=== PATIENT | male | born 1925 | race Caucasian/White ===

== ENCOUNTER → 2016-12-07 | Outpatient (CLI) | payer BC ==
[2016-12-07 13:21] LABS: BASO % 0.7 %; BASO ABS # 0.05 K/uL (0-0.2); COMPLETE YES; HEMATOCRIT 45.1 % (42-52); IG% 0.3 %; LYMPH % 25.8 %; LYMPH ABS # 1.81 K/uL (1.2-3.4); MEAN CELL VOLUME 97.4 fL (80-100); MEAN CORPUSCULAR HGB CONC 33.9 g/dl (32-36); MEAN PLATELET VOLUME 9.3 fL (7.4-10.4); NEUT % 60.2 %; PLATELET COUNT 170 K/uL (130-400); RED BLOOD COUNT 4.63 M/uL (4.7-6.1); WHITE BLOOD COUNT 7.02 K/uL (4.8-10.8)
[2016-12-07 14:00] LABS: ALT/SGPT 30 U/L (12-78); BLOOD UREA NITROGEN 25 mg/dl (7-18); BUN/CREATININE RATIO 17.9 (10-20); CALCIUM 9.7 mg/dl (8.5-10.1); CARBON DIOXIDE 30 mmol/L (21-32); CHLORIDE 104 mmol/L (98-107); GLUCOSE 120 mg/dl (70-99); POTASSIUM 4.1 mmol/L (3.5-5.1); SODIUM 140 mmol/L (136-145)
[2016-12-07 14:10] LABS: ALB/GLOB RATIO 0.6 (0.9-2); ALKALINE PHOSPHATASE 90 U/L (45-117); AST/SGOT 25 U/L (15-37)
[2016-12-08 08:09] LABS: ESTIMATED AVERAGE GLUCOSE 137 mg/dl; HA1C FLAG Normal (Normal)
--- NOTE | 2016-12-12 07:52 | CODING QUERY MEDICAL NECESSITY ---
SUPPORTING DIAGNOSIS NEEDED Dr. Barker, A supporting diagnosis is required for the test/procedure performed on this patient in order for us to be reimbursed by the patient's insurance. Please provide a supporting diagnosis for the following test/procedure listed below next to the test name along with your signature. *If there is no additional diagnosis for this patient that would support the following test/procedure please document that below next to the test/procedure. Test(s)/Procedure(s) that require a supporting diagnosis: * 11962 GLYCATED HEMOGLOBIN DIAGNOSIS: DATE OF SERVICE: 12/07/16 Provider Signature: Date: Thank you Monster Garces [facility] Information Management Once completed, please kindly fax back to [phone] For questions please call [phone]
== END | disposition home or self-care (01) ==
LOC: C.LABBC 10:19
PROVIDERS: ATTEND Internal Medicine
DX: E55.9 Vitamin D deficiency, unspecified (principal); R73.01 Impaired fasting glucose

== ENCOUNTER → 2017-05-23 | Outpatient (CLI) | payer BC ==
[~2017-05-23] MED LIST: ASPI81TA28 PO; CHOL1000 PO; MULT-506 PO; OMEG10007 PO; POTASSIUM PO; SYN100 PO
--- NOTE | 2017-05-23 12:33 | DIAGNOSTIC IMAGING REPORT ---
CHEST 2 VIEWS ROUTINE CLINICAL HISTORY: BIBASILAR CRACKLES dyspnea COMPARISON STUDY: No previous studies for comparison. FINDINGS: Calcified pleural plaques in the mid to lower lung regions bilaterally. Interstitial and/or infiltrative changes the mid to lower lung regions bilaterally. Pleural thickening left base laterally. Pulmonary apices are clear. Diaphragms smooth. No significant cardiomegaly. IMPRESSION: 1. Bilateral calcified pleural plaques. 2. Interstitial changes in the mid to lower lung regions bilaterally. In the absence of prior studies for comparison cannot entirely exclude an inflammatory process. 3. There are no consolidative infiltrates. The above report was generated using voice recognition software. It may contain grammatical, syntax or spelling errors. Electronically signed by: Lawrence Gamble M.D. 05/23/2017 12:32 PM Dictated Date/Time: 05/23/2017 12:31 PM
== END | disposition home or self-care (01) ==
LOC: C.RAD1850 12:16
PROVIDERS: ATTEND Family Medicine
DX: J92.9 Pleural plaque without asbestos (principal); R09.89 Other specified symptoms and signs involving the circulatory and respiratory systems

== ENCOUNTER 2017-05-24 14:13 | Inpatient (IN) | payer BC, OTHER ==
[~2017-05-24] VITALS: Ht 165.1 cm; Wt 76.2 kg
[2017-05-24] MEDS ORDERED: POTASSIUM PO (15:07)
[2017-05-24] MEDS ORDERED: ASPI81TA28 PO (15:07)
[2017-05-24] MEDS ORDERED: CHOL1000 PO (15:23)
[2017-05-24] MEDS ORDERED: OMEG10007 PO (15:23)
[2017-05-24] MEDS ORDERED: SYN100 PO (15:23)
[2017-05-24] MEDS ORDERED: MULT-506 PO (15:23)
--- NOTE | 2017-05-24 15:33 | EMERGENCY ROOM VISIT NOTE ---
History First contact with patient: 14:24 Chief Complaint: ABNORMAL LABS Stated Complaint: KIDNEY NUMBERS HIGH/POTASSIUM HIGH REFERRED History of Present Illness The patient is a 89 year old male who was sent to the ED from his PCP due to a creatinine level of 7.2 and potassium of 5.8. He has had a 1 week history of shortness of breath, fatigue, feeling unsteady and off balance, a non- productive cough, chest tightness with his SOB and a poor appetite. He had a CXR yesterday which showed bilateral calcified pleural plaques and interstitial changes in the mid-lower lung regions bilaterally. He is a former smoker, and quit in 1959, but reports no prior history of lung problems, namely COPD. He is not on oxygen at home. He denies fever, chills, rhinorrhea, n/v, diarrhea, syncope, orthopnea, or a past history of kidney, heart or lung problems. He does report exposure to asbestos in the . Review of Systems See HPI for pertinent positives & negatives. A total of 10 systems reviewed and were otherwise negative. Past Medical/Surgical History Medical Problems: (1) Hearing loss (2) HLD (hyperlipidemia) (3) Liver failure Social History Smoking Status: Former Smoker Current/Historical Medications Scheduled Aspirin (Aspirin Ec), 81 MG PO DAILY Cholecalciferol (Vitamin D3), 1,000 INTER.UNIT PO DAILY Fish Oil ([place]-3), 1 CAP PO DAILY Levothyroxine Sodium (Synthroid), 100 MCG PO DAILY Multivitamin (Multivitamin), 1 TAB PO DAILY [Potassium], 1 TAB PO DAILY Physical Exam Vital Signs Date Time Temp Pulse Resp B/P (MAP) Pulse Ox O2 Delivery O2 Flow Rate FiO2 05/24/17 19:18 57 18 121/72 95 Room Air 05/24/17 17:34 57 16 106/64 94 05/24/17 16:24 57 16 130/68 93 Room Air 05/24/17 14:58 70 05/24/17 14:41 72 05/24/17 14:40 94 Room Air 05/24/17 14:26 36.5 76 20 118/69 94 Room Air Physical Exam HEENT: Head - normocephalic and atraumatic. Hard of hearing with hearing aids in both ears. Pupils are equal, round, and reactive to light. Nose - moist nasal mucosa without discharge. Mouth - moist buccal mucosa. Oropharynx is nonerythematous and there is no tonsillar exudate or edema noted. Heart: Regular rate and rhythm. There is a normal S1 and S2 with no murmurs, clicks, or gallops appreciated. Lungs: Bilateral bibasilar crackles. No wheezes, rales, or rhonchi. Abdomen: Soft, completely nontender, nondistended, with good bowel sounds. There are no palpable pulsatile masses or hepatosplenomegaly. There is no guarding, rigidity, or rebound noted. Extremities: No evidence of cyanosis, clubbing, or edema. There are easily palpable peripheral pulses. Neuro:The patient is awake and alert, oriented to day, time, and place. Medical Decision & Procedures Laboratory Results 05/24/17 16:28 Red Blood Count 4.10, Mean Corpuscular Volume 96.1, Mean Corpuscular Hemoglobin 34.1, Mean Corpuscular Hemoglobin Concent 35.5, Mean Platelet Volume 10.8, Neutrophils (%) (Auto) 85.1, Lymphocytes (%) (Auto) 10.4, Monocytes (%) (Auto) 4.0, Eosinophils (%) (Auto) 0.1, Basophils (%) (Auto) 0.0, Neutrophils # (Auto) 6.98, Lymphocytes # (Auto) 0.85, Monocytes # (Auto) 0.33, Eosinophils # (Auto) 0.01, Basophils # (Auto) 0.00 05/24/17 16:28 Test 05/24/17 16:28 05/24/17 17:53 05/24/17 19:32 White Blood Count 8.20 K/uL (4.8-10.8) Red Blood Count 4.10 M/uL (4.7-6.1) Hemoglobin 14.0 g/dL (14.0-18.0) Hematocrit 39.4 % (42-52) Mean Corpuscular Volume 96.1 fL (80-100) Mean Corpuscular Hemoglobin 34.1 pg (25-34) Mean Corpuscular Hemoglobin Concent 35.5 g/dl (32-36) Platelet Count 52 K/uL (130-400) Mean Platelet Volume 10.8 fL (7.4-10.4) Neutrophils (%) (Auto) 85.1 % Lymphocytes (%) (Auto) 10.4 % Monocytes (%) (Auto) 4.0 % Eosinophils (%) (Auto) 0.1 % Basophils (%) (Auto) 0.0 % Neutrophils # (Auto) 6.98 K/uL (1.4-6.5) Lymphocytes # (Auto) 0.85 K/uL (1.2-3.4) Monocytes # (Auto) 0.33 K/uL (0.11-0.59) Eosinophils # (Auto) 0.01 K/uL (0-0.5) Basophils # (Auto) 0.00 K/uL (0-0.2) RDW Standard Deviation 47.7 fL (36.4-46.3) RDW Coefficient of Variation 13.5 % (11.5-14.5) Immature Granulocyte % (Auto) 0.4 % Immature Granulocyte # (Auto) 0.03 K/uL (0.00-0.02) Nucleated RBC Absolute Count (auto) 0.05 K/uL (0-0) Nucleated Red Blood Cells % 0.6 % Dohle Bodies 1+ Platelet Estimate DECREASED Anion Gap 14.0 mmol/L (3-11) Estimated GFR () 7.0 Estimated GFR (Non- 6.0 BUN/Creatinine Ratio 16.9 (10-20) Calcium Level 9.2 mg/dl (8.5-10.1) Magnesium Level 2.7 mg/dl (1.8-2.4) Total Bilirubin 1.3 mg/dl (0.2-1) Aspartate Amino Transf (AST/SGOT) 1730 U/L (15-37) Alanine Aminotransferase (ALT/SGPT) 3157 U/L (12-78) Alkaline Phosphatase 92 U/L (45-117) Troponin I 196.000 ng/ml (0-0.045) Total Protein 8.0 gm/dl (6.4-8.2) Albumin 3.4 gm/dl (3.4-5.0) Globulin 4.6 gm/dl (2.5-4.0) Albumin/Globulin Ratio 0.7 (0.9-2) Medications Administered Medications (Trade) Dose Ordered Sig/Sahil Route Start Time Stop Time Status Last Admin Dose Admin Sodium Chloride 1,000 ml @ 200 mls/hr Q5H ONCE IV 05/24/17 16:00 05/24/17 20:59 05/24/17 16:23 200 MLS/HR ECG Indication: chest pain Rate (beats per minute): 57 Rhythm: sinus bradycardia Findings: 1st degree AV block, T-wave inversion (Inferior Leads) Comparison ECG Date: no prior available ED Course 14:42: The patient was evaluated in room B5. A complete history and physical exam was performed. 15:40: The case was discussed with the attending, Dr. Garcia. 15:51: 1L IV normal saline ordered at a rate of 200mls/hour 17:35: The patient was reassessed. He reports he is feeling better, and denies any new complaints. 17:45: The case was discussed with Dr. Brown, [facility] hospitalist who will evaluate the patient further for admission. Medical Decision The patient is a 89 year old male who was sent to the ED from his PCP due to a creatinine level of 7.2 and potassium of 5.8. Etiologies such as ARF, ACS, infection, pneumonia, dehydration, electrolyte disturbance, hypoglycemia, reactive airway disease, CHF as well as others were entertained. The patient is a 89 year old male who was sent to the ED from his PCP due to a creatinine level of 7.2 and potassium of 5.8. His repeat creatinine was 7.3, troponin was 196, platelets were low at 52 and liver enzymes were remarkably elevated. His lab work from 11/27 was normal. His EKG does not show any acute ST wave changes corresponding with his elevated troponin. He looks well considering his lab-work, and bibasilar crackles are likely related to chronic lung changes, possibly due to his prior asbestos exposure. He requires further workup in the inpatient setting to determine the etiology behind his acute renal failure, transaminitis, thrombocytopenia and elevated troponin. This was discussed with the patient and family, as well as Dr. Brown who will evaluate the patient further for admission. Impression Primary Impression: Acute renal failure Additional Impressions: Transaminitis Thrombocytopenia Elevated troponin Departure Information Dispostion Being Evaluated By Hospitalist Referrals Leonardo Barker M.D. (PCP) Patient Instructions My [facility] Resident Tracking Resident Involvement: Resident Care Provided Care Provided: Adult ED Problem Qualifiers Primary Impression: Acute renal failure Acute renal failure type: unspecified Qualified Codes: N17.9 - Acute kidney failure, unspecified
[2017-05-24] MEDS ORDERED: SODIUM CHLORIDE 0.9% 1000ML 1,000 ML IV ONE (16:00)
[2017-05-24 17:19] LABS: HEMATOCRIT 39.4 % (42-52); MEAN CELL VOLUME 96.1 fL (80-100); MEAN CORPUSCULAR HEMOGLOBIN 34.1 pg (25-34); MEAN CORPUSCULAR HGB CONC 35.5 g/dl (32-36); MEAN PLATELET VOLUME 10.8 fL (7.4-10.4); NUCLEATED RED BLOOD CELL ABS 0.05 K/uL (0-0); PLATELET COUNT 52 K/uL (130-400); RED CELL DISTRIBUTION WIDTH CV 13.5 % (11.5-14.5); RED CELL DISTRIBUTION WIDTH SD 47.7 fL (36.4-46.3)
[2017-05-24 17:21] LABS: EOS % 0.1 %; EOS ABS # 0.01 K/uL (0-0.5); IG# 0.03 K/uL (0.00-0.02); LYMPH % 10.4 %; LYMPH ABS # 0.85 K/uL (1.2-3.4); MONO ABS # 0.33 K/uL (0.11-0.59); NEUT % 85.1 %; NEUT ABS # 6.98 K/uL (1.4-6.5)
[2017-05-24 17:30] LABS: ALBUMIN 3.4 gm/dl (3.4-5.0); ALKALINE PHOSPHATASE 92 U/L (45-117); AST/SGOT 1730 U/L (15-37); BLOOD UREA NITROGEN 123 mg/dl (7-18); CALCIUM 9.2 mg/dl (8.5-10.1); CARBON DIOXIDE 22 mmol/L (21-32); GLUCOSE 146 mg/dl (70-99); POTASSIUM 5.6 mmol/L (3.5-5.1); SODIUM 134 mmol/L (136-145)
[2017-05-24 17:31] LABS: ALT/SGPT 3157 U/L (12-78)
--- NOTE | 2017-05-24 18:12 | DIAGNOSTIC IMAGING REPORT ---
CHEST ONE VIEW PORTABLE CLINICAL HISTORY: Shortness of breath and cough. COMPARISON STUDY: Chest radiograph May 23, 2017. FINDINGS: Multiple calcified pleural plaques are noted, more numerous within left hemithorax. There is no pneumothorax or pleural effusion. Mild cardiomegaly is noted. There is no lobar consolidation. Mild reticulonodular interstitial thickening is noted within the mid to lower lungs. IMPRESSION: 1. Reticulonodular interstitial thickening which may reflect interstitial lung disease or mild pulmonary edema. 2. 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 Electronically signed by: Douglas Galvin M.D. 05/24/2017 6:10 PM Dictated Date/Time: 05/24/2017 5:59 PM
--- NOTE | 2017-05-24 18:15 | DIAGNOSTIC IMAGING REPORT ---
ABD/PELVIS NO IV OR ORAL CONT CT DOSE: 573.01 mGy.cm HISTORY: Pain. Abnormal liver enzymes. FINDINGS: Prominent basilar parenchymal markings combine with calcified pleural plaques over the lower aspects of the right and to a lesser extent left hemithorax and to a lesser extent diaphragmatic surfaces. Liver is uniform. In the absence of intravenous contrast enhancement internal architecture cannot be ascertained. Configuration of the spleen is unremarkable. Pancreas is uniform. Kidneys are considered negative for calcification or hydronephrosis. There is a slightly hyperdense 3.5 cm cyst projecting in a left lateral exophytic a position lower pole left kidney. The bowel pattern is nonobstructive. The appendix is normal. Small bowel pattern is negative for distention. There is no significant abdominal or pelvic adenopathy. Bladder is midline. There are no contained calcifications. There are several small scattered colonic diverticuli with no evidence for acute diverticulitis. There is a very small right inguinal hernia containing a short segment loop of bowel. This appears to be a nonobstructive finding. TECHNIQUE: Multiaxial CT images of the abdomen and pelvis were performed without contrast. A dose lowering technique was utilized adhering to the principles of ALARA. COMPARISON STUDY: None. IMPRESSION: 1. Pleural and diaphragmatic calcified plaques at both lung bases combined with basilar parenchymal prominence. The possibility of prior asbestos exposure is considered. 2. 3.5 cm mildly hyperdense cyst left kidney. 3. Scattered colonic diverticuli with no evidence for diverticulitis. 4. Nonobstructive bowel pattern with a normal appendix. 5. Moderate degenerative change of the osseous structures throughout 6. Small right inguinal hernia containing a short segment loop of bowel which is considered nonobstructive. The above report was generated using voice recognition software. It may contain grammatical, syntax or spelling errors. Electronically signed by: Lawrence Gamble M.D. 05/24/2017 6:14 PM Dictated Date/Time: 05/24/2017 6:08 PM
[2017-05-24] MEDS ORDERED: ICU PROTOCOL FOR HYPERGLYCEMIA PRN ×2 (18:45→23:15)
--- NOTE | 2017-05-24 18:49 | EMERGENCY ROOM VISIT NOTE ---
History Report prepared by Flavio: Niranjan Eason Under the Supervision of: Dr. Randall Garcia D.O. First contact with patient: 14:23 Chief Complaint: ABNORMAL LABS Stated Complaint: KIDNEY NUMBERS HIGH/POTASSIUM HIGH DR REFERRED History of Present Illness The patient is an 89 year old male who presents to the Emergency Room with complaints of persistent weakness that started a week ago. The patient was sent here from his primary care physicians's clinic for evaluation due to the patient 's creatinine level of 7.2 and potassium level of 5.8. The patient says that he has had a 1-week history of shortness of breath on exertion, and has had a nonproductive cough. He adds that he has been feeling off-balance. The patient notes that he has had some chest tightness as well. He notes no history of pulmonary, cardiac, or kidney issues. He denies any fevers or chills. Source of History: patient, spouse/significant other Onset: A week ago Position: other (global - weakness) Symptom Intensity: creatinine of 7.2, potassium of 5.8 Timing: other (persistent) Associated Symptoms: + cough, + chest pain (tightness), + SOB (on exertion) , No fevers, No chills Note: Feeling off-balance. Review of Systems See HPI for pertinent positives & negatives. A total of 10 systems reviewed and were otherwise negative. Past Medical & Surgical Medical Problems: (1) Hearing loss (2) HLD (hyperlipidemia) Family History Family history is omitted secondary to patient's advanced age. Social History Smoking Status: Former Smoker Marital Status: Housing Status: lives with family Occupation Status: retired Current/Historical Medications Scheduled Aspirin (Aspirin Ec), 81 MG PO DAILY Cholecalciferol (Vitamin D3), 1,000 INTER.UNIT PO DAILY Fish Oil ([place]-3), 1 CAP PO DAILY Levothyroxine Sodium (Synthroid), 100 MCG PO DAILY Multivitamin (Multivitamin), 1 TAB PO DAILY [Potassium], 1 TAB PO DAILY Allergies Coded Allergies: Niacin (Verified Allergy, Mild, RASH, 05/24/17) Physical Exam Vital Signs Date Time Temp Pulse Resp B/P (MAP) Pulse Ox O2 Delivery O2 Flow Rate FiO2 05/24/17 17:34 57 16 106/64 94 05/24/17 16:24 57 16 130/68 93 Room Air 05/24/17 14:58 70 05/24/17 14:41 72 05/24/17 14:40 94 Room Air 05/24/17 14:26 36.5 76 20 118/69 94 Room Air Physical Exam CONSTITUTIONAL/VITAL SIGNS: Reviewed / noted above. GENERAL: Non-toxic in appearance. INTEGUMENTARY: Warm, dry, and [place]. HEAD: Normocephalic. EYES: without scleral icterus or trauma. ENT/OROPHARYNX: clear, dry mucous membranes LYMPHADENOPATHY/NECK: Is supple without lymphadenopathy or meningismus. RESPIRATORY: Lungs clear and equal. CARDIOVASCULAR: Regular rate and rhythm. GI/ABDOMEN: Soft and nontender. No organomegaly or pulsatile mass. No rebound or guarding. Normal bowel sounds. EXTREMITIES: Warm and well perfused. BACK: No CVA tenderness. NEUROLOGICAL: Intact without focal deficits. PSYCHIATRIC: normal affect. MUSCULOSKELETAL: Normally developed with good muscle tone. Medical Decision & Procedures ER Provider Diagnostic Interpretation: Radiology results as stated below per my review and radiologist interpretation: ABD/PELVIS NO IV OR ORAL CONT CT DOSE: 573.01 mGy.cm HISTORY: Pain. Abnormal liver enzymes. FINDINGS: Prominent basilar parenchymal markings combine with calcified pleural plaques over the lower aspects of the right and to a lesser extent left hemithorax and to a lesser extent diaphragmatic surfaces. Liver is uniform. In the absence of intravenous contrast enhancement internal architecture cannot be ascertained. Configuration of the spleen is unremarkable. Pancreas is uniform. Kidneys are considered negative for calcification or hydronephrosis. There is a slightly hyperdense 3.5 cm cyst projecting in a left lateral exophytic a position lower pole left kidney. The bowel pattern is nonobstructive. The appendix is normal. Small bowel pattern is negative for distention. There is no significant abdominal or pelvic adenopathy. Bladder is midline. There are no contained calcifications. There are several small scattered colonic diverticuli with no evidence for acute diverticulitis. There is a very small right inguinal hernia containing a short segment loop of bowel. This appears to be a nonobstructive finding. TECHNIQUE: Multiaxial CT images of the abdomen and pelvis were performed without contrast. A dose lowering technique was utilized adhering to the principles of ALARA. COMPARISON STUDY: None. IMPRESSION: 1. Pleural and diaphragmatic calcified plaques at both lung bases combined with basilar parenchymal prominence. The possibility of prior asbestos exposure is considered. 2. 3.5 cm mildly hyperdense cyst left kidney. 3. Scattered colonic diverticuli with no evidence for diverticulitis. 4. Nonobstructive bowel pattern with a normal appendix. 5. Moderate degenerative change of the osseous structures throughout 6. Small right inguinal hernia containing a short segment loop of bowel which is considered nonobstructive. The above report was generated using voice recognition software. It may contain grammatical, syntax or spelling errors. Electronically signed by: Lawrence Gamble M.D. 05/24/2017 6:14 PM Dictated Date/Time: 05/24/2017 6:08 PM CHEST ONE VIEW PORTABLE CLINICAL HISTORY: Shortness of breath and cough. COMPARISON STUDY: Chest radiograph May 23, 2017. FINDINGS: Multiple calcified pleural plaques are noted, more numerous within left hemithorax. There is no pneumothorax or pleural effusion. Mild cardiomegaly is noted. There is no lobar consolidation. Mild reticulonodular interstitial thickening is noted within the mid to lower lungs. IMPRESSION: 1. Reticulonodular interstitial thickening which may reflect interstitial lung disease or mild pulmonary edema. 2. 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 Electronically signed by: Douglas Galvin M.D. 05/24/2017 6:10 PM Dictated Date/Time: 05/24/2017 5:59 PM Laboratory Results 05/24/17 16:28 Red Blood Count 4.10, Mean Corpuscular Volume 96.1, Mean Corpuscular Hemoglobin 34.1, Mean Corpuscular Hemoglobin Concent 35.5, Mean Platelet Volume 10.8, Neutrophils (%) (Auto) 85.1, Lymphocytes (%) (Auto) 10.4, Monocytes (%) (Auto) 4.0, Eosinophils (%) (Auto) 0.1, Basophils (%) (Auto) 0.0, Neutrophils # (Auto) 6.98, Lymphocytes # (Auto) 0.85, Monocytes # (Auto) 0.33, Eosinophils # (Auto) 0.01, Basophils # (Auto) 0.00 05/24/17 16:28 Test 05/24/17 16:28 05/24/17 17:53 White Blood Count 8.20 K/uL (4.8-10.8) Red Blood Count 4.10 M/uL (4.7-6.1) Hemoglobin 14.0 g/dL (14.0-18.0) Hematocrit 39.4 % (42-52) Mean Corpuscular Volume 96.1 fL (80-100) Mean Corpuscular Hemoglobin 34.1 pg (25-34) Mean Corpuscular Hemoglobin Concent 35.5 g/dl (32-36) Platelet Count 52 K/uL (130-400) Mean Platelet Volume 10.8 fL (7.4-10.4) Neutrophils (%) (Auto) 85.1 % Lymphocytes (%) (Auto) 10.4 % Monocytes (%) (Auto) 4.0 % Eosinophils (%) (Auto) 0.1 % Basophils (%) (Auto) 0.0 % Neutrophils # (Auto) 6.98 K/uL (1.4-6.5) Lymphocytes # (Auto) 0.85 K/uL (1.2-3.4) Monocytes # (Auto) 0.33 K/uL (0.11-0.59) Eosinophils # (Auto) 0.01 K/uL (0-0.5) Basophils # (Auto) 0.00 K/uL (0-0.2) RDW Standard Deviation 47.7 fL (36.4-46.3) RDW Coefficient of Variation 13.5 % (11.5-14.5) Immature Granulocyte % (Auto) 0.4 % Immature Granulocyte # (Auto) 0.03 K/uL (0.00-0.02) Nucleated RBC Absolute Count (auto) 0.05 K/uL (0-0) Nucleated Red Blood Cells % 0.6 % Dohle Bodies 1+ Platelet Estimate DECREASED Anion Gap 14.0 mmol/L (3-11) Estimated GFR () 7.0 Estimated GFR (Non- 6.0 BUN/Creatinine Ratio 16.9 (10-20) Calcium Level 9.2 mg/dl (8.5-10.1) Magnesium Level 2.7 mg/dl (1.8-2.4) Total Bilirubin 1.3 mg/dl (0.2-1) Aspartate Amino Transf (AST/SGOT) 1730 U/L (15-37) Alanine Aminotransferase (ALT/SGPT) 3157 U/L (12-78) Alkaline Phosphatase 92 U/L (45-117) Troponin I 196.000 ng/ml (0-0.045) Total Protein 8.0 gm/dl (6.4-8.2) Albumin 3.4 gm/dl (3.4-5.0) Globulin 4.6 gm/dl (2.5-4.0) Albumin/Globulin Ratio 0.7 (0.9-2) Laboratory results as stated above per my review. Medications Administered Medications (Trade) Dose Ordered Sig/Sahil Route Start Time Stop Time Status Last Admin Dose Admin Sodium Chloride 1,000 ml @ 200 mls/hr Q5H ONCE IV 05/24/17 16:00 05/24/17 20:59 05/24/17 16:23 200 MLS/HR ECG Indication: toxicologic Rate (beats per minute): 57 Rhythm: sinus bradycardia Findings: 1st degree AV block, T-wave inversion (Inferior) ED Course 1444: Previous medical records were reviewed. The patient was evaluated in room B5 by the resident, Dr. Bolton and myself. A complete history and physical examination was performed. 1600: Ordered NSS 1000 ml @ 200 mls/hr IV. 1744: On reevaluation, the patient is resting. I discussed the results and findings with him. He verbalized agreement of the treatment plan. The patient will be evaluated for further management and care. 1746: Dr. Brown ([facility] taker off hemp fiber) was consulted regarding the patient. The patient will be evaluated for further treatment. Medical Decision Differential includes acute coronary syndrome, myocardial infarction, CVA, TIA, anemia, infection, pneumonia, UTI, pyelonephritis, poor nutrition, dehydration, electrolyte disturbance,hypoglycemia. This is an 89-year-old male who presents to the ED with a chief complaint of generalized weakness over the past couple of days. He has had decreased oral intake. Further details listed above. Patient was seen with the resident. The patient's exam revealed a 89-year-old male in no acute distress. His biggest membranes are dry. The rest of his exam was relatively unremarkable other than some crackles in the lungs. This might be related to a chronic lung issue. The patient was sent here from the outpatient office because of acute renal failure. His current BUN is 123 and his creatinine is 7.3. AST and ALTs are moderately elevated. CBC is unremarkable. Troponin was elevated. The patient was treated with IV fluids. He will be seen by the hospitalist for further inpatient evaluation and care. Medication Reconcilliation Current Medication List: was personally reviewed by me Blood Pressure Screening Patient's blood pressure: Normal blood pressure Consults Time Called: 1743 Consulting Physician: Dr. Brown - [facility] taker off hemp fiber Returned Call: 1745 Dr. Brown ([facility] taker off hemp fiber) was consulted regarding the patient. The patient will be evaluated for further treatment. Impression Primary Impression: Acute renal failure Additional Impressions: Transaminitis Thrombocytopenia Elevated troponin Scribe Attestation The scribe's documentation has been prepared under my direction and personally reviewed by me in its entirety. I confirm that the note above accurately reflects all work, treatment, procedures, and medical decision making performed by me. Departure Information Dispostion Being Evaluated By Hospitalist Referrals Leonardo Barker M.D. (PCP) Patient Instructions My [facility] Health Problem Qualifiers
--- NOTE | 2017-05-24 19:45 | History and Physical ---
History & Physical Date & Time of Service: May 24, 2017 at 19:14 Chief Complaint: Kidney Numbers High/Potassium High Dr Referred Primary Care Physician: Leonardo Barker M.D. History of Present Illness Source: patient, family 89 y/o M who until recently has been relatively healthy and independent. 10 days ago he developed a flu-like illness. He was generally weak but was not able to describe any specific symptoms. One day prior he visited his primary care clinic. He was sent home after labs and a CXR were obtained. The pt was then called back and told to attend the hospital due to highly abnormal labs. His lab results are in fact catastrophic. The pts troponin is 196 with only questionable inferior EKG changes. His creatinine is 7.2 and his ALT is > 3500. Labs obtained 11/27 were relatively normal aside from a creatinine of 1.4. The pt is remarkably asymptomatic and has no specific complaints. He denies chest or abdominal pain, denies SOB, cough, diarrhea, dysuria, oliguria or fevers. His CXR is suspicious for congestion without definitive pathology. A CT abdomen was not consistent with cirrhosis or renal outlet obstruction. Past Medical/Surgical History Medical Problems: (1) Hearing loss Status: Chronic (2) HLD (hyperlipidemia) Status: Chronic Social History Smoking Status: Former Smoker Marital Status: Occupational Status: retired Multi-Drug Resistant Organisms History of MDRO: No Allergies Coded Allergies: Niacin (Verified Allergy, Mild, RASH, 05/24/17) Home Medications Scheduled Aspirin (Aspirin Ec), 81 MG PO DAILY Cholecalciferol (Vitamin D3), 1,000 INTER.UNIT PO DAILY Fish Oil (Riesel-3), 1 CAP PO DAILY Levothyroxine Sodium (Synthroid), 100 MCG PO DAILY Multivitamin (Multivitamin), 1 TAB PO DAILY [Potassium], 1 TAB PO DAILY Review of Systems Constitutional: + weakness, No fever, No chills, No sweats Eyes: No worsening of vision ENT: No hearing loss, No unusual epistaxis, No nasal symptoms Respiratory: No cough, No sputum, No wheezing Cardiovascular: No chest pain, No orthopnea, No PND Abdomen: No pain, No nausea, No vomiting Musculoskeletal: No joint pain Genitourinary - Male: No hematuria, No dysuria Neurologic: + weakness, No memory loss Psychiatric: No depression symptoms Endocrine: + fatigue Hematologic / Lymphatic: No abnormal bleeding/bruising Integumentary: No rash Physical Exam Vital Signs Date Time Temp Pulse Resp B/P (MAP) Pulse Ox O2 Delivery O2 Flow Rate FiO2 05/24/17 17:34 57 16 106/64 94 05/24/17 16:24 57 16 130/68 93 Room Air 05/24/17 14:58 70 05/24/17 14:41 72 05/24/17 14:40 94 Room Air 05/24/17 14:26 36.5 76 20 118/69 94 Room Air General Appearance: WD/WN, no apparent distress Head: normocephalic Eyes: normal inspection ENT: normal ENT inspection, pharynx normal Neck: supple, thyroid normal Respiratory/Chest: chest non-tender, lungs clear Cardiovascular: regular rate, rhythm, no edema, no gallop Abdomen/GI: normal bowel sounds, non tender, soft Back: normal inspection, no CVA tenderness Extremities/Musculoskelatal: normal inspection, no calf tenderness, normal capillary refill Neurologic/Psych: 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, no motor/sensory deficits, alert, + pertinent finding (Lethargic - follows commands and responds appropriately) Skin: normal color, warm/dry, no rash Diagnostics Laboratory Results Results Past 24 Hours Test 05/24/17 16:28 05/24/17 17:53 Range/Units White Blood Count 8.20 4.8-10.8 K/uL Red Blood Count 4.10 4.7-6.1 M/uL Hemoglobin 14.0 14.0-18.0 g/dL Hematocrit 39.4 42-52 % Mean Corpuscular Volume 96.1 80-100 fL Mean Corpuscular Hemoglobin 34.1 25-34 pg Mean Corpuscular Hemoglobin Concent 35.5 32-36 g/dl Platelet Count 52 130-400 K/uL Mean Platelet Volume 10.8 7.4-10.4 fL Neutrophils (%) (Auto) 85.1 % Lymphocytes (%) (Auto) 10.4 % Monocytes (%) (Auto) 4.0 % Eosinophils (%) (Auto) 0.1 % Basophils (%) (Auto) 0.0 % Neutrophils # (Auto) 6.98 1.4-6.5 K/uL Lymphocytes # (Auto) 0.85 1.2-3.4 K/uL Monocytes # (Auto) 0.33 0.11-0.59 K/uL Eosinophils # (Auto) 0.01 0-0.5 K/uL Basophils # (Auto) 0.00 0-0.2 K/uL RDW Standard Deviation 47.7 36.4-46.3 fL RDW Coefficient of Variation 13.5 11.5-14.5 % Immature Granulocyte % (Auto) 0.4 % Immature Granulocyte # (Auto) 0.03 0.00-0.02 K/uL Nucleated RBC Absolute Count (auto) 0.05 0-0 K/uL Nucleated Red Blood Cells % 0.6 % Dohle Bodies 1+ Platelet Estimate DECREASED Sodium Level 134 136-145 mmol/L Potassium Level 5.6 3.5-5.1 mmol/L Chloride Level 98 98-107 mmol/L Carbon Dioxide Level 22 21-32 mmol/L Anion Gap 14.0 3-11 mmol/L Blood Urea Nitrogen 123 7-18 mg/dl Creatinine 7.30 0.60-1.40 mg/dl Estimated GFR () 7.0 Estimated GFR (Non- 6.0 BUN/Creatinine Ratio 16.9 10-20 Random Glucose 146 70-99 mg/dl Calcium Level 9.2 8.5-10.1 mg/dl Magnesium Level 2.7 1.8-2.4 mg/dl Total Bilirubin 1.3 0.2-1 mg/dl Aspartate Amino Transf (AST/SGOT) 1730 15-37 U/L Alanine Aminotransferase (ALT/SGPT) 3157 12-78 U/L Alkaline Phosphatase 92 45-117 U/L Troponin I 196.000 0-0.045 ng/ml Total Protein 8.0 6.4-8.2 gm/dl Albumin 3.4 3.4-5.0 gm/dl Globulin 4.6 2.5-4.0 gm/dl Albumin/Globulin Ratio 0.7 0.9-[address] abdomen: 1. Pleural and diaphragmatic calcified plaques at both lung bases combined with basilar parenchymal prominence. The possibility of prior asbestos exposure is considered. 2. 3.5 cm mildly hyperdense cyst left kidney. 3. Scattered colonic diverticuli with no evidence for diverticulitis. 4. Nonobstructive bowel pattern with a normal appendix. 5. Moderate degenerative change of the osseous structures throughout 6. Small right inguinal hernia containing a short segment loop of bowel which is considered nonobstructive. EKG Sinus - low voltage - questionable - minimal inferior elevations - can not r/o AMI Impression Assessment and Plan 89 y/o M who until recently has been relatively healthy and independent. 10 days ago he developed a flu-like illness. He was generally weak but was not able to describe any specific symptoms. One day prior he visited his primary care clinic. He was sent home after labs and a CXR were obtained. The pt was then called back and told to attend the hospital due to highly abnormal labs. His lab results are in fact catastrophic. The pts troponin is 196 with only questionable inferior EKG changes. His creatinine is 7.2 and his ALT is > 3500. Labs obtained 11/27 were relatively normal aside from a creatinine of 1.4. The pt is remarkably asymptomatic and has no specific complaints. He denies chest or abdominal pain, denies SOB, cough, diarrhea, dysuria, oliguria or fevers. His CXR is suspicious for congestion without definitive pathology. A CT abdomen was not consistent with cirrhosis or renal outlet obstruction. It is not clear what the initial insult was, although logically it may have been cardiac leading to organ hypoperfusion and subsequent hepatic and renal failure. The pt is admitted to the ICU with multiorgan failure. Aside from fluid resuscitation presently we will not pursue aggressive treatment. He is not a good candidate for PCI or dialysis and it is not likely that we can reverse his liver damage. We will obtain an echo and order a hepatic ultrasound to r/o thrombosis. Troponin will be trended. He will be evaluated by Nephrology, cardiology, GI and critical care provided the family does not decide to pursue comfort measures. His K is slightly high and will be treated with IVF and a dose of Kayexalate. I have discussed the above in detail with the family, electorate officer, ER attending Total time for this admission including review of labs, meds, imaging - discussion with pt, family, attendings - including critical care time - 45 min The pt is full code awaiting family decision on status Owing to his low platelet count, we have not anticoagulated him Level of Care Critical Care Resuscitation Status FULL RESUSCITATION VTE Prophylaxis VTE Risk Assessment Done? Y/N: Yes Risk Level: High Given or contraindicated: SCD's
[2017-05-24] MEDS: SODIUM CHLORIDE 0.9% 1000ML 1,000 ML IV SCH (22:01)
[2017-05-24 23:18] VITALS: BP 103/65; PULSE 58; TEMP 36.4; O2SAT 95; Ht 165.1 cm; Wt 76.2 kg
--- NOTE | 2017-05-24 23:19 | Critical Care Consultation ---
Critical Care Consultation Date of Consultation: May 24, 2017. Attending Physician: Reji Brown M.D. Reason for Consultation: Critically ill 89-year-old male with NSTEMI, acute liver failure, acute renal failure, thrombocytopenia, and generalized weakness requiring close hemodynamic/ cardiovascular monitoring. History of Present Illness Patient is a generally well-appearing 89-year-old male admitted to the ICU with significant laboratory abnormalities in the setting of likely NSTEMI. Per the patient and records, the patient had a flulike illness several days ago. He was seen at his primary care provider's office yesterday with outpatient labs that were performed. Patient reports that since Sunday morning he has felt very weak. He barely get out of bed on Sunday. When he did, he had to hold onto things to walk. This is certainly new for him. This is a gentleman that bowls 2 days per week and mows his own lawn. His symptoms persisted throughout the day on Sunday. The patient's primary care office contact the patient today with his highly abnormal labs. He was subsequently brought to the emergency department for further evaluation. On evaluation, the patient was found to be thrombocytopenic. He is not overtly anemic. There is no leukocytosis. He was found to be in acute renal failure with a creatinine of 7.3 and BUN of 123. Potassium is slightly high at 5.6. Additionally, the patient appears to be in acute liver failure with an AST and ALT of 1730 and 3157, respectively. Patient was found to have inferior T-wave changes in the setting of an elevated troponin of 196. Blood pressures and pulse rate remained relatively stable despite likely inferior infarct. ICU staff was consult with secondary to gravity of patient's laboratory assessment and possible need for intervention and close monitoring in the acute phase. Per hospitalist, he did speak with interventional cardiology who did not feel as though the patient would be ideal candidate for PTCA intervention. Medical management will certainly be difficult in the setting of thrombocytopenia. Patient was hydrated with 150 mL of normal saline per hour. Upon arrival of the ICU, the patient reports that he had been feeling fairly well until Sunday. Since then, he has had increasing weakness and generalized malaise. At no point does the patient describe any episodes of chest pain, shortness of breath, dizziness, or lightheadedness. He reports a history of coronary artery disease. He does follow with his primary care provider yearly as scheduled. He currently denies any headaches, dizziness, lightheadedness, blurry vision, chest pain, palpitations, shortness of breath, nausea, vomiting, abdominal pain, hematochezia, melena, hematuria, or dysuria. The patient lives at home with his . He is hard of hearing and wears hearing aids. He denies any alcohol use. He is a former smoker. Past Medical/Surgical History Medical Problems: (1) Hearing loss (2) HLD (hyperlipidemia) (3) Liver failure Family History Noncontributory Social History Smoking Status: Former Smoker Smokeless Tobacco Use: No Alcohol Use: none Drug Use: none Marital Status: Housing Status: lives with family Occupation Status: retired Allergies Coded Allergies: Niacin (Verified Allergy, Mild, RASH, 05/24/17) Home Medications Scheduled Aspirin (Aspirin Ec), 81 MG PO DAILY Cholecalciferol (Vitamin D3), 1,000 INTER.UNIT PO DAILY Fish Oil ([place]-3), 1 CAP PO DAILY Levothyroxine Sodium (Synthroid), 100 MCG PO DAILY Multivitamin (Multivitamin), 1 TAB PO DAILY [Potassium], 1 TAB PO DAILY Current Inpatient Medications Current Inpatient Medications Medications (Trade) Dose Ordered Sig/Sahil Route Start Time Stop Time Status Last Admin Dose Admin Levothyroxine Sodium (Synthroid Tab) 100 mcg DAILYBB PO 05/25/17 06:00 06/24/17 06:59 Miscellaneous Information (Icu Protocol For Hyperglycemia) 1 ea PRN PRN N/A 05/24/17 18:45 05/26/17 18:44 Sodium Chloride 1,000 ml @ 100 mls/hr Q10H IV 05/24/17 19:15 05/25/17 13:32 05/24/17 22:01 150 MLS/HR Review of Systems A complete 10-point Review of Systems was discussed with the patient, with pertinent positives and negatives listed in the History of Present Illness. All remaining Review of Systems questions can be considered negative unless otherwise specified. Physical Exam Date Time Temp Pulse Resp B/P (MAP) Pulse Ox O2 Delivery O2 Flow Rate FiO2 05/24/17 21:12 36.5 57 18 121/72 95 05/24/17 19:18 57 18 121/72 95 Room Air 05/24/17 17:34 57 16 106/64 94 05/24/17 16:24 57 16 130/68 93 Room Air 05/24/17 14:58 70 05/24/17 14:41 72 05/24/17 14:40 94 Room Air 05/24/17 14:26 36.5 76 20 118/69 94 Room Air VITAL SIGNS - Vital signs and nursing notes were reviewed. GENERAL - 89-year-old male appearing his stated age who is in no acute distress. Difficulty w/ hearing. HEAD - NC/AT. EYES - PERRL with EOMI bilaterally. Sclera anicteric. EARS - No deformities of external structures noted on gross examination bilaterally. Hearing aids in place. NOSE - Midline and without cyanosis. MOUTH/OROPHARYNX - Without perioral cyanosis. Buccal mucosa pink and dry. Tongue midline with equal elevation of palate bilaterally. NECK - Neck with FROM. Supple to palpation. LUNGS - Chest wall symmetric without accessory muscle use, intercostals retractions, or central cyanosis. Normal vesicular breath sounds CTA B/L. No wheezes, rales, or rhonchi appreciated. CARDIAC - RRR with S1/S2. No murmur, rubs, or gallops appreciated. No reproducible tenderness to palpation appreciated over the anterior chest wall. ABDOMEN - Abdominal contour flat and without pulsations or visible masses. BS normoactive all four quadrants. No tenderness, palpable masses, hepatosplenomegaly, or ascites noted. EXTREMITIES - No peripheral cyanosis. No pretibial edema present. +3/5 radial and dorsalis pedis pulses palpated throughout. +4/5 strength noted in UE/LE bilaterally. NEUROLOGIC - Cranial nerves II through XII grossly intact. Sensory intact to light touch throughout. PSYCH - A&Ox3 and cooperates fully with examiner. Pt is very pleasant and interacts well with examiner. Laboratory Results Last 24 Hours Test 05/24/17 16:28 05/24/17 21:30 05/24/17 22:04 05/24/17 23:07 White Blood Count 8.20 K/uL Red Blood Count 4.10 M/uL Hemoglobin 14.0 g/dL Hematocrit 39.4 % Mean Corpuscular Volume 96.1 fL Mean Corpuscular Hemoglobin 34.1 pg Mean Corpuscular Hemoglobin Concent 35.5 g/dl Platelet Count 52 K/uL Mean Platelet Volume 10.8 fL Neutrophils (%) (Auto) 85.1 % Lymphocytes (%) (Auto) 10.4 % Monocytes (%) (Auto) 4.0 % Eosinophils (%) (Auto) 0.1 % Basophils (%) (Auto) 0.0 % Neutrophils # (Auto) 6.98 K/uL Lymphocytes # (Auto) 0.85 K/uL Monocytes # (Auto) 0.33 K/uL Eosinophils # (Auto) 0.01 K/uL Basophils # (Auto) 0.00 K/uL RDW Standard Deviation 47.7 fL RDW Coefficient of Variation 13.5 % Immature Granulocyte % (Auto) 0.4 % Immature Granulocyte # (Auto) 0.03 K/uL Nucleated RBC Absolute Count (auto) 0.05 K/uL Nucleated Red Blood Cells % 0.6 % Dohle Bodies 1+ Platelet Estimate DECREASED Sodium Level 134 mmol/L Potassium Level 5.6 mmol/L Chloride Level 98 mmol/L Carbon Dioxide Level 22 mmol/L Anion Gap 14.0 mmol/L Blood Urea Nitrogen 123 mg/dl Creatinine 7.30 mg/dl Estimated GFR () 7.0 Estimated GFR (Non- 6.0 BUN/Creatinine Ratio 16.9 Random Glucose 146 mg/dl Calcium Level 9.2 mg/dl Magnesium Level 2.7 mg/dl Total Bilirubin 1.3 mg/dl Aspartate Amino Transf (AST/SGOT) 1730 U/L Alanine Aminotransferase (ALT/SGPT) 3157 U/L Alkaline Phosphatase 92 U/L Troponin I 196.000 ng/ml Total Protein 8.0 gm/dl Albumin 3.4 gm/dl Globulin 4.6 gm/dl Albumin/Globulin Ratio 0.7 Urine Color YELLOW Urine Appearance CLOUDY Urine pH 5.0 Urine Specific [place] 1.018 Urine Protein 1+ Urine Glucose (UA) NEG Urine Ketones NEG Urine Occult Blood 2+ Urine Nitrite NEG Urine Bilirubin NEG Urine Urobilinogen NEG Urine Leukocyte Esterase TRACE Urine WBC (Auto) 5-10 /hpf Urine RBC (Auto) 0-4 /hpf Urine Hyaline Casts (Auto) 5-10 /lpf Urine Epithelial Cells (Auto) >30 /lpf Urine Bacteria (Auto) NEG Urine Crystals Urine Pathogenic Casts See comments /lpf Urine Yeast (Auto) Bedside Glucose 115 mg/dl Test 05/24/17 23:12 Diagnostic Results Radiological imaging and reports were reviewed by myself. Radiologist's Interpretation as follows: CHEST ONE VIEW PORTABLE CLINICAL HISTORY: Shortness of breath and cough. COMPARISON STUDY: Chest radiograph May 23, 2017. FINDINGS: Multiple calcified pleural plaques are noted, more numerous within left hemithorax. There is no pneumothorax or pleural effusion. Mild cardiomegaly is noted. There is no lobar consolidation. Mild reticulonodular interstitial thickening is noted within the mid to lower lungs. IMPRESSION: 1. Reticulonodular interstitial thickening which may reflect interstitial lung disease or mild pulmonary edema. 2. 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 ABD/PELVIS NO IV OR ORAL CONT CT DOSE: 573.01 mGy.cm HISTORY: Pain. Abnormal liver enzymes. FINDINGS: Prominent basilar parenchymal markings combine with calcified pleural plaques over the lower aspects of the right and to a lesser extent left hemithorax and to a lesser extent diaphragmatic surfaces. Liver is uniform. In the absence of intravenous contrast enhancement internal architecture cannot be ascertained. Configuration of the spleen is unremarkable. Pancreas is uniform. Kidneys are considered negative for calcification or hydronephrosis. There is a slightly hyperdense 3.5 cm cyst projecting in a left lateral exophytic a position lower pole left kidney. The bowel pattern is nonobstructive. The appendix is normal. Small bowel pattern is negative for distention. There is no significant abdominal or pelvic adenopathy. Bladder is midline. There are no contained calcifications. There are several small scattered colonic diverticuli with no evidence for acute diverticulitis. There is a very small right inguinal hernia containing a short segment loop of bowel. This appears to be a nonobstructive finding. TECHNIQUE: Multiaxial CT images of the abdomen and pelvis were performed without contrast. A dose lowering technique was utilized adhering to the principles of ALARA. COMPARISON STUDY: None. IMPRESSION: 1. Pleural and diaphragmatic calcified plaques at both lung bases combined with basilar parenchymal prominence. The possibility of prior asbestos exposure is considered. 2. 3.5 cm mildly hyperdense cyst left kidney. 3. Scattered colonic diverticuli with no evidence for diverticulitis. 4. Nonobstructive bowel pattern with a normal appendix. 5. Moderate degenerative change of the osseous structures throughout 6. Small right inguinal hernia containing a short segment loop of bowel which is considered nonobstructive. Assessment & Plan (1) NSTEMI (non-ST elevated myocardial infarction) (2) Elevated troponin (3) Transaminitis (4) Thrombocytopenia (5) Acute renal failure (6) Liver failure (7) Hearing loss Reason Critically Ill: Critically ill 89-year-old male with NSTEMI, acute liver failure, acute renal failure, thrombocytopenia, and generalized weakness requiring close hemodynamic/cardiovascular monitoring. Neuro - * CAM ICU: NEGATIVE * Monitor Neuro status in the setting of ARF/Liver Failure/Thrombocytopenia Cardiac - * NSTEMI: * Troponin of 196.00 - will trend. Suspect that the patient had infarcted sometime over the past week or so given this number. * Slight ST elevation w/ T wave inversions noted inferiorly - no comparisons. * Per Cardiology, patient is a poor candidate for PTCA intervention at this point. * Avoid Heparin gtt 2/2 platelet count of 52k - will defer to cardiology for need for antiplatelet therapy. * AM Echo. * Monitor on Telemetry. * EKGs w/ CP * IVF for preload. * Pressors for Cardiogenic shock. * Appreciate Cardiology's Guidance. Respiratory - * Prior h/o smoking: * NC PRN. * Serial CXRs GI - * Acute Hepatitis/Transaminitis: * AST/ALT - 1730/3157 w/ T-bili 1.3 * Will check PT/INR * Will check Ammonia levels - may add to chronicity of disease in the setting of lack of neurological s/s. * ??Related to remote viral illness versus NSTEMI. * Appreciate GI Consultation. * Prophylaxis - Zantac. RENAL/LYTES - * Acute Renal Failure: * BUN/Cr 123/7.30 * Surprisingly, no significant electrolyte derangements at this point. * Will trend. * ??Poor candidate for dialysis in the setting of multiple comorbidities - defer to Nephro. * Appreciate Nephrology Consultation. * IVF NSS@100mL/hr - * Declines Barriga at this time. * Not anuric at this point. ENDO - * No h/o DM. * BSGs per protocol w/ ISS/gtt PRN. * Provided Levothyroxine in the ED: * Will check TSH/Free T4 in AM HEME - * H&H Stable - will trend. * Thrombocytopenia: * Platelets 52k * Will trend. * Avoid antiplatelet Rx at this point. ID - * No c/o of infection at this point. * Influenza NEGATIVE. * Will add L[place] for completeness of evaluation. * Monitor fever curve. LINES/IV ACCESS - * PIVs intact. DVT PROPHYLAXIS - * Will defer chemoprophylaxis at this point 2/2 thrombocytopenia. * Reassess as evaluation continues. * SCDs. CODE STATUS: * I personally had a lengthy conversation with the patient and his son, Deshawn. At this point, the patient would wish to undergo all life-saving measures including CPR, cardioversion, intubation and mechanical ventilation. At this point, his CODE STATUS wishes are to be a LEVEL I FULL CODE. Per conversation with hospitalist, apparently, family is discussing the potential for comfort measures only given the gravity of his illness and multiple comorbidities. We will continue with further evaluation at this point until any further decisions are made and further evaluation provides more insight as to patient's condition and possible outlook. I have personally spent 35 minutes of critical care time in the direct management of this patient. This is a life/limb threatening event. This includes time spent evaluating patient, direct bedside care, chart review, placing orders, interpretation of diagnostic studies, discussion with consultants, patient, and family members, as well as other required patient management activities. This time is exclusive of all separately billable procedures, and teaching time and separate from and in addition to any other critical care service time. Thank you for this consultation allow us to be part of this patient's care. Please refer to my attending physician's documentation for any further recommendations. Physician Supervision Note: I discussed the case with Reynaldo Xiong PA-C and agree with the findings and plan as documented in the note. I performed an independent examination. Any exceptions or clarifications are listed here: 89 year old male presents with large NV, complicated by acute kidney injury, perhaps ischemic hepatitis. Not a candidate for cardiac catheterization. Considered for hemodialysis if develops significant acidosis, fluid overload or has persistent hyperkalemia. He is able to void on his own. Consider Barriga catheter IV fluids Prognosis is guarded Documented By: Kumar Hercules MD Problem Qualifiers (1) Acute renal failure: Acute renal failure type: unspecified Qualified Codes: N17.9 - Acute kidney failure, unspecified (2) Liver failure: Liver failure chronicity: acute Hepatic coma status: without hepatic coma Qualified Codes: K72.00 - Acute and subacute hepatic failure without coma
[2017-05-24 23:59] VITALS: O2SAT 93
[2017-05-25] VITALS (19 sets, daily range): BP systolic 91–127; BP diastolic 52–74; PULSE 53–72; TEMP 36.5–36.8; O2SAT 91–95
[2017-05-25 00:29] LABS: CALCIUM 8.8 mg/dl (8.5-10.1); CREATININE 7.31 mg/dl (0.60-1.40); PHOSPHORUS 4.9 mg/dl (2.5-4.9); POTASSIUM 5.2 mmol/L (3.5-5.1)
[2017-05-25 00:52] LABS: HEP C IGG 13 YRS+OLDER_RFLX NEG (NEG)
[2017-05-25 05:43] LABS: HEMATOCRIT 36.6 % (42-52); HEMOGLOBIN 13.1 g/dL (14.0-18.0); MEAN CELL VOLUME 95.6 fL (80-100); MEAN CORPUSCULAR HEMOGLOBIN 34.2 pg (25-34); MEAN CORPUSCULAR HGB CONC 35.8 g/dl (32-36); NUCLEATED RED BLOOD CELL ABS 0.05 K/uL (0-0); RED CELL DISTRIBUTION WIDTH CV 13.3 % (11.5-14.5); RED CELL DISTRIBUTION WIDTH SD 46.4 fL (36.4-46.3); WHITE BLOOD COUNT 7.06 K/uL (4.8-10.8)
[2017-05-25] MEDS: LEVOTHYROXINE 100 MCG TAB PO SCH (05:58)
[2017-05-25 06:00] LABS: MEAN PLATELET VOLUME 10.8 fL (7.4-10.4); PLATELET COUNT 47 K/uL (130-400)
[2017-05-25 06:04] LABS: INR 1.3 (0.9-1.1); PTT PATIENT 29.2 SECONDS (21.0-31.0)
[2017-05-25 06:11] LABS: BASO % 0.1 %; BASO ABS # 0.01 K/uL (0-0.2); EOS % 0.1 %; EOS ABS # 0.01 K/uL (0-0.5); IG# 0.02 K/uL (0.00-0.02); LYMPH % 11.5 %; LYMPH ABS # 0.81 K/uL (1.2-3.4); MONO % 6.8 %; MONO ABS # 0.48 K/uL (0.11-0.59); NEUT % 81.2 %; NEUT ABS # 5.73 K/uL (1.4-6.5)
[2017-05-25 06:43] LABS: ALBUMIN 2.9 gm/dl (3.4-5.0); CALCIUM 8.6 mg/dl (8.5-10.1); CREATININE 7.01 mg/dl (0.60-1.40); PHOSPHORUS 4.7 mg/dl (2.5-4.9); POTASSIUM 5.9 mmol/L (3.5-5.1)
--- NOTE | 2017-05-25 07:34 | DIAGNOSTIC IMAGING REPORT ---
ULTRASOUND RIGHT UPPER QUADRANT ABDOMEN CLINICAL HISTORY: Acute hepatitis. COMPARISON STUDY: Abdominal CT dated 05/24/2017. TECHNIQUE: Real-time, grayscale, and color flow sonography of the right upper quadrant of the abdomen was performed. Images are reviewed in the transverse and longitudinal planes. FINDINGS: Liver: The liver is normal in size and demonstrates heterogeneously increased echotexture consistent with hepatic steatosis. There is no intrahepatic biliary ductal dilatation. The main portal vein is patent. Gallbladder: Biliary sludge is noted. The gallbladder is otherwise normal in appearance. No shadowing gallstones are identified. There is no gallbladder wall thickening or pericholecystic fluid. A sonographic Roldan's sign is reportedly absent. The common bile duct measures up to 0.3 cm in diameter. Pancreas: Visualized portions of the pancreatic head are normal in appearance. The majority of the pancreas was not well visualized. Right kidney: Survey images of the right kidney demonstrate normal size and echotexture. There is no hydronephrosis. Ascites: Trace perihepatic fluid is identified. IMPRESSION: 1. Findings are consistent with hepatic steatosis. 2. Trace perihepatic fluid is noted. 3. There is biliary sludge. No shadowing gallstones are identified and there is no sonographic evidence of acute cholecystitis. Electronically signed by: Anderson Reyes M.D. 05/25/2017 7:33 AM Dictated Date/Time: 05/25/2017 7:31 AM
--- NOTE | 2017-05-25 07:49 | DIAGNOSTIC IMAGING REPORT ---
CHEST ONE VIEW PORTABLE CLINICAL HISTORY: pleural effusions COMPARISON STUDY: 05/24/2017 FINDINGS: The cardiac and mediastinal contours remain stable. 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 There are bilateral reticulonodular opacities similar to the preceding study. There is no lobar consolidation. No significant pleural effusions are visualized on this AP projection IMPRESSION: 1. Stable calcified pleural plaques 2. Stable bilateral reticulonodular opacities Electronically signed by: Elgin Felipe M.D. 05/25/2017 7:48 AM Dictated Date/Time: 05/25/2017 7:47 AM
[2017-05-25] MEDS: RANITIDINE HCL 150 MG TAB PO SCH ×2 (07:55→20:44)
[2017-05-25] MEDS ORDERED: INSULIN HUMAN REGULAR PER UNIT 10 UNITS in SYRINGE 9.9 ML IV ONE ×2 (08:45→08:46)
[2017-05-25] MEDS ORDERED: DEXTROSE 50% 50 ML SYR IV ONE (08:45)
[2017-05-25] MEDS ORDERED: SODIUM POLYST. SULF SUSP 15G/60ML PO ONE (08:45)
[2017-05-25] MEDS: SODIUM CHLORIDE 0.9% 1000ML 1,000 ML IV SCH ×2 (08:45→16:50)
--- NOTE | 2017-05-25 09:41 | Nephrology Consultation ---
Nephrology Consultation Date & Providers Date of Consultation: May 25, 2017. Primary Care Provider: Leonardo Barker M.D. Referring Provider: Reason for Consultation Evaluation management for acute kidney injury and hyperkalemia History of Present Illness Mr. Rae is a 89-year-old gentlemen with past medical history mainly significant for hypertension admitted to the hospital as a direct admit from his primary care physician's office as was found to have acute hepatic failure and acute kidney injury. Nephrologic consult was requested for management of acute kidney injury and hyperkalemia. Electronic medical records including labs and imaging were reviewed in detail during patient's visit. Patient's son Heri was present during the visit and provided most of the history. 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 He started feeling unwell almost a week ago became weak and tired and atone point it was getting difficult for him to get out of bed. Yesterday he went to see his primary care physician. Lab done at primary care physician's office showed creatinine 7.4, BUN above 120, hyperkalemia, elevated troponin above 160 and acute hepatic failure. He was immediately refer to emergency room for further evaluation. CT scan of abdomen pelvis on admission was negative for any postrenal obstruction. Urinalysis showed 1+ proteinuria and hematuria. No history of recent NSAID use or antibiotic use. No other nephrotoxic medication exposure. No history of diabetes or autoimmune disorder. No history of coronary artery disease or CHF. Chest x-ray on admission was suggestive of any volume overload. He reports voiding normally although intake has been poor. Repeat lab this morning showed renal function staying relatively same without any improvement, has been oliguric and potassium worsened 5.9 continues to have significant metabolic acidosis. Patient could not provide much history as he seems drowsy and lethargic barely opened eyes. Allergies Coded Allergies: Niacin (Verified Allergy, Mild, RASH, 05/24/17) Inpatient Medications Current Inpatient Medications Medications (Trade) Dose Ordered Sig/Sahil Route Start Time Stop Time Status Last Admin Dose Admin Levothyroxine Sodium (Synthroid Tab) 100 mcg DAILYBB PO 05/25/17 06:00 06/24/17 06:59 05/25/17 05:58 100 MCG Miscellaneous Information ([facility] Protocol For Hyperglycemia) 1 ea PRN PRN N/A 05/24/17 18:45 05/26/17 18:44 Sodium Chloride 1,000 ml @ 100 mls/hr Q10H IV 05/24/17 19:15 05/25/17 13:32 05/24/17 22:01 150 MLS/HR Ranitidine HCl (zANTac TAB) 150 mg BID PO 05/25/17 09:00 06/24/17 08:59 05/25/17 07:55 150 MG Miscellaneous Information ([facility] Protocol For Hyperglycemia) 1 ea PRN PRN N/A 05/24/17 23:15 05/26/17 23:14 Sodium Polystyrene Sulfonate (Kayexalate Susp) 15 gm NOW ONCE PO 05/25/17 08:45 05/25/17 08:46 Dextrose (Dextrose 50% 50ML Syringe) 50 ml NOW ONCE IV 05/25/17 08:45 05/25/17 08:46 Insulin Human Regular 10 units/ Syringe 10 ml @ 30 mls/min 0845 ONCE IV 05/25/17 08:45 05/25/17 08:46 Family History Pt could not provide any family history, Son was not aware of any known f/h of CKD or ESRD. Has h/o HTN in family. Social History Smoking Status: Former Smoker Smokeless Tobacco Use: No Alcohol Use: none Drug Use: none Marital Status: Occupation: retired Review of Systems A complete review of systems was performed. Pertinent positives are noted above. All other systems are negative. Physical Exam Date Time Temp Pulse Resp B/P (MAP) Pulse Ox O2 Delivery O2 Flow Rate FiO2 05/25/17 07:45 93 Room Air 05/25/17 06:00 54 22 109/69 (82) 93 Room Air 05/25/17 04:00 94 Room Air 05/25/17 04:00 36.6 54 20 108/63 (78) 94 Room Air 05/25/17 02:00 58 20 118/65 (82) 93 Room Air 05/25/17 00:01 36.5 53 20 112/67 (82) 93 Room Air 05/24/17 23:59 93 Room Air 05/24/17 23:18 36.4 58 17 103/65 95 Room Air 05/24/17 21:12 36.5 57 18 121/72 95 05/24/17 19:18 57 18 121/72 95 Room Air 05/24/17 17:34 57 16 106/64 94 05/24/17 16:24 57 16 130/68 93 Room Air 05/24/17 14:58 70 05/24/17 14:41 72 05/24/17 14:40 94 Room Air 05/24/17 14:26 36.5 76 20 118/69 94 Room Air GENERAL: Elderly male, drowsy and lethargic, ill-appearing, not in any distress. HEENT: Atraumatic, normocephalic. NECK: Supple, no JVD, no carotid bruit appreciated. ENT: No sinus tenderness MOUTH and THROAT: Moist oral mucosa, no oral ulcer or pharyngeal erythema RESPIRATORY: Normal breathing efforts, no accessory muscle use, clear to auscultation bilaterally, no wheezes or rales. CARDIOVASCULAR: S1, S2 normal, rate rhythm regular. ABDOMEN: Soft, nontender, positive bowel sound. MUSCULOSKELETAL: No joint swelling, erythema or tenderness. Normal range of motion. SKIN: No skin rash EXTREMITY: No lower extremity edema NEURO: No gross focal neurological deficit. Laboratory Results Last 24 Hours Test 05/24/17 16:28 05/24/17 21:30 05/24/17 22:04 05/24/17 23:07 White Blood Count 8.20 K/uL Red Blood Count 4.10 M/uL Hemoglobin 14.0 g/dL Hematocrit 39.4 % Mean Corpuscular Volume 96.1 fL Mean Corpuscular Hemoglobin 34.1 pg Mean Corpuscular Hemoglobin Concent 35.5 g/dl Platelet Count 52 K/uL Mean Platelet Volume 10.8 fL Neutrophils (%) (Auto) 85.1 % Lymphocytes (%) (Auto) 10.4 % Monocytes (%) (Auto) 4.0 % Eosinophils (%) (Auto) 0.1 % Basophils (%) (Auto) 0.0 % Neutrophils # (Auto) 6.98 K/uL Lymphocytes # (Auto) 0.85 K/uL Monocytes # (Auto) 0.33 K/uL Eosinophils # (Auto) 0.01 K/uL Basophils # (Auto) 0.00 K/uL RDW Standard Deviation 47.7 fL RDW Coefficient of Variation 13.5 % Immature Granulocyte % (Auto) 0.4 % Immature Granulocyte # (Auto) 0.03 K/uL Nucleated RBC Absolute Count (auto) 0.05 K/uL Nucleated Red Blood Cells % 0.6 % Dohle Bodies 1+ Platelet Estimate DECREASED Sodium Level 134 mmol/L 134 mmol/L Potassium Level 5.6 mmol/L 5.2 mmol/L Chloride Level 98 mmol/L 99 mmol/L Carbon Dioxide Level 22 mmol/L 23 mmol/L Anion Gap 14.0 mmol/L 12.0 mmol/L Blood Urea Nitrogen 123 mg/dl 116 mg/dl Creatinine 7.30 mg/dl 7.31 mg/dl Estimated GFR () 7.0 7.0 Estimated GFR (Non- 6.0 6.0 BUN/Creatinine Ratio 16.9 15.8 Random Glucose 146 mg/dl 119 mg/dl Calcium Level 9.2 mg/dl 8.8 mg/dl Magnesium Level 2.7 mg/dl Total Bilirubin 1.3 mg/dl Aspartate Amino Transf (AST/SGOT) 1730 U/L Alanine Aminotransferase (ALT/SGPT) 3157 U/L Alkaline Phosphatase 92 U/L Troponin I 196.000 ng/ml 104.000 ng/ml Total Protein 8.0 gm/dl Albumin 3.4 gm/dl Globulin 4.6 gm/dl Albumin/Globulin Ratio 0.7 Urine Color YELLOW Urine Appearance CLOUDY Urine pH 5.0 Urine Specific [place] 1.018 Urine Protein 1+ Urine Glucose (UA) NEG Urine Ketones NEG Urine Occult Blood 2+ Urine Nitrite NEG Urine Bilirubin NEG Urine Urobilinogen NEG Urine Leukocyte Esterase TRACE Urine WBC (Auto) 5-10 /hpf Urine RBC (Auto) 0-4 /hpf Urine Hyaline Casts (Auto) 5-10 /lpf Urine Epithelial Cells (Auto) >30 /lpf Urine Bacteria (Auto) NEG Urine Crystals Urine Pathogenic Casts See comments /lpf Urine Yeast (Auto) Bedside Glucose 115 mg/dl Est Creatinine Clear Calc Drug Dose 6.0 ml/min Phosphorus Level 4.9 mg/dl Total Creatine Kinase 660 U/L Acetaminophen Level < 2 ug/ml Lyme Disease IgG Antibody NEG Lyme Disease IgM Antibody NEG Hepatitis B Surface Antigen NEG Hepatitis C Antibody NEG Test 05/25/17 05:24 White Blood Count 7.06 K/uL Red Blood Count 3.83 M/uL Hemoglobin 13.1 g/dL Hematocrit 36.6 % Mean Corpuscular Volume 95.6 fL Mean Corpuscular Hemoglobin 34.2 pg Mean Corpuscular Hemoglobin Concent 35.8 g/dl Platelet Count 47 K/uL Mean Platelet Volume 10.8 fL Neutrophils (%) (Auto) 81.2 % Lymphocytes (%) (Auto) 11.5 % Monocytes (%) (Auto) 6.8 % Eosinophils (%) (Auto) 0.1 % Basophils (%) (Auto) 0.1 % Neutrophils # (Auto) 5.73 K/uL Lymphocytes # (Auto) 0.81 K/uL Monocytes # (Auto) 0.48 K/uL Eosinophils # (Auto) 0.01 K/uL Basophils # (Auto) 0.01 K/uL RDW Standard Deviation 46.4 fL RDW Coefficient of Variation 13.3 % Immature Granulocyte % (Auto) 0.3 % Immature Granulocyte # (Auto) 0.02 K/uL Nucleated RBC Absolute Count (auto) 0.05 K/uL Nucleated Red Blood Cells % 0.7 % Echinocytes 1+ Prothrombin Time 13.6 SECONDS Prothromb Time International Ratio 1.3 Activated Partial Thromboplast Time 29.2 SECONDS Partial Thromboplastin Ratio 1.1 Sodium Level 136 mmol/L Potassium Level 5.9 mmol/L Chloride Level 102 mmol/L Carbon Dioxide Level 19 mmol/L Anion Gap 15.0 mmol/L Blood Urea Nitrogen 126 mg/dl Creatinine 7.01 mg/dl Est Creatinine Clear Calc Drug Dose 6.2 ml/min Estimated GFR () 7.3 Estimated GFR (Non- 6.3 BUN/Creatinine Ratio 18.1 Random Glucose 123 mg/dl Calcium Level 8.6 mg/dl Phosphorus Level 4.7 mg/dl Magnesium Level 2.4 mg/dl Total Bilirubin 1.2 mg/dl Direct Bilirubin 0.4 mg/dl Aspartate Amino Transf (AST/SGOT) 897 U/L Alanine Aminotransferase (ALT/SGPT) 2312 U/L Alkaline Phosphatase 80 U/L Troponin I 36.300 ng/ml Total Protein 7.0 gm/dl Albumin 2.9 gm/dl Triglycerides Level 146 mg/dl Cholesterol Level 144 mg/dl HDL Cholesterol 24 mg/dl LDL Cholesterol, Calculated 91 mg/dl VLDL Cholesterol, Calculated 29 mg/dl Cholesterol/HDL Ratio 6.0 Lipase 619 U/L Thyroid Stimulating Hormone (TSH) 5.870 uIu/ml Free Thyroxine 1.23 ng/dl Monoscreen NEG Impression (1) Acute renal failure (2) Transaminitis (3) Hypertension (4) Proteinuria (5) Thrombocytopenia (6) Elevated troponin (7) NSTEMI (non-ST elevated myocardial infarction) 89-year-old gentlemen with acute kidney injury, transaminitis and elevated troponin. Acute kidney injury, had baseline mild CKD, baseline creatinine has been 1.3-1.4, admission creatinine 7.5 BUN 125 with significant electrolyte abnormalities including hyperkalemia and metabolic acidosis without much improvement with IV hydration. CT abdomen pelvis without contrast state no postrenal obstruction, urinalysis with low grade proteinuria and hematuria. Unclear etiology for acute kidney injury, no postrenal obstruction, however cannot exclude any possibility for intrinsic renal disease or dense ATN. Overnight patient's treated IV hydration, there is no significant improvement renal function, in fact electrolyte abnormality continues to worsen, urine output has been low around 200 mL since admission. Currently blood pressure running high however no respiratory distress volume status seems to be acceptable. As per discussion with ICU team patient is a little on full code and would like to do all life-sustaining measures Recommendations --long discussion patient's son and explained the current renal function significantly abnormal without any improvement since admission, electrolyte abnormality seems to be worsening and urine output has dropped significantly --patient will need urgent dialysis to correct electrolyte abnormality and the uremic symptoms --explained the risk of an infection other complication associated with acute dialysis and central venous catheter placement and dialysis and the fact that patient probably had massive [place] recently, with hepatic failure and overall clinical condition may not tolerate dialysis. --patient's son mentioned that the discussed as a family with his mother and other brother and leaning toward not doing any other aggressive measures including dialysis however son will try to talk with his father. But knowing his father he does not think his father would have wanted dialysis --will hold any further workup --hold nephrotoxic medications Will be available and follow closely Thank you for allowing me to participate in your patient's care. It was a pleasure to see Mr. Rae
--- NOTE | 2017-05-25 09:48 | Gastrointestinal Consultation ---
Gastrointestinal Consultation Date of Consultation: May 25, 2017 Attending Physician: Dr. Nuno Consulting Physician: Jazzy Jalloh PA-C Reason for Consultation: Liver failure History of Present Illness Patient is a 89 year old male who presented to the ED after being referred by an outside medical provider after having labs performed. The patient developed a flu-like illness 10 days ago. Symptoms included generalized weakness. His initial troponin was noted to be 196. His AST was 1730 and ALT was 3157. INR is 1.3. His Creatinine is 7.01. Total bilirubin is 1.2. Direct bilirubin 0.4. TSH is 5.85. Lipase 619. The patient is currently a level 1 full code. Upon evaluation of the patient, he does seem slightly confused. He repeatedly asks if he has a heart problem. He denies a history of liver disease. He denies a past medical history of alcohol use. He denies Tylenol use and his acetaminophen. He denies chest pain, abdominal pain, nausea, vomiting, fever, or chills. His CXR that was performed indicated congestion, but he denies any physical complaints. There is no history of IVDA. His CT of the liver and US liver are unremarkable. Hepatitis C studies are negative and other hepatitis studies are pending as are Lyme studies. There are multiple specialists consulted on his case including nephrology & cardiology. Past Medical/Surgical History Medical Problems: (1) Acute renal failure Status: Acute (2) Elevated troponin Status: Acute (3) Hearing loss Status: Chronic (4) Liver failure Status: Acute (5) NSTEMI (non-ST elevated myocardial infarction) Status: Acute (6) Thrombocytopenia Status: Acute (7) Transaminitis Status: Acute Past Medical History: Hearing loss & hyperlipidemia Past Surgical History: denies acute issues Social History Smoking Status: Former Smoker Drug Use: none Marital Status: Housing Status: lives with family Occupation Status: retired Allergies Coded Allergies: Niacin (Verified Allergy, Mild, RASH, 05/24/17) Current Medications Home Meds and Scripts Medications Dose Route/Sig Max Daily Dose Days Date Category Vitamin D3 (Cholecalciferol) 1,000 Unit Tab 1,000 Inter.unit PO DAILY 05/24/17 Reported [place]-3 (Fish Oil) 1 Ea Cap 1 Cap PO DAILY 05/24/17 Reported Multivitamin (Multivitamins) Tab 1 Tab PO DAILY 05/24/17 Reported Synthroid (Levothyroxine Sodium) 100 Mcg Tab 100 Mcg PO DAILY 05/24/17 Reported [Potassium] 1 Tab PO DAILY 05/24/17 Reported Aspirin Ec (Aspirin) 81 Mg Tab 81 Mg PO DAILY 05/24/17 Reported Review of Systems Constitutional: No problem reported Eyes: No problem reported Respiratory: No cough, No shortness of breath, No dyspnea on exertion Cardiac: + chest pain Abdomen: No pain, No nausea, No vomiting, No diarrhea, No constipation, No GI bleeding, No jaundice Musculoskeletal: No joint pain Psych: No problem reported Skin: No problem reported Physical Exam Date Time Temp Pulse Resp B/P (MAP) Pulse Ox O2 Delivery O2 Flow Rate FiO2 05/25/17 07:45 93 Room Air 05/25/17 06:00 54 22 109/69 (82) 93 Room Air 05/25/17 04:00 94 Room Air 05/25/17 04:00 36.6 54 20 108/63 (78) 94 Room Air 05/25/17 02:00 58 20 118/65 (82) 93 Room Air 05/25/17 00:01 36.5 53 20 112/67 (82) 93 Room Air 05/24/17 23:59 93 Room Air 05/24/17 23:18 36.4 58 17 103/65 95 Room Air 05/24/17 21:12 36.5 57 18 121/72 95 05/24/17 19:18 57 18 121/72 95 Room Air 05/24/17 17:34 57 16 106/64 94 05/24/17 16:24 57 16 130/68 93 Room Air 05/24/17 14:58 70 05/24/17 14:41 72 05/24/17 14:40 94 Room Air 05/24/17 14:26 36.5 76 20 118/69 94 Room Air General Appearance: no apparent distress Eyes: normal inspection, PERRL Respiratory/Chest: lungs clear Cardiovascular: regular rate, rhythm Abdomen: normal bowel sounds, non tender, soft Extremities: non-tender Neurologic/Psych: alert Skin: normal color Laboratory Results Last 24 Hours Test 05/24/17 16:28 05/24/17 21:30 05/24/17 22:04 05/24/17 23:07 White Blood Count 8.20 K/uL Red Blood Count 4.10 M/uL Hemoglobin 14.0 g/dL Hematocrit 39.4 % Mean Corpuscular Volume 96.1 fL Mean Corpuscular Hemoglobin 34.1 pg Mean Corpuscular Hemoglobin Concent 35.5 g/dl Platelet Count 52 K/uL Mean Platelet Volume 10.8 fL Neutrophils (%) (Auto) 85.1 % Lymphocytes (%) (Auto) 10.4 % Monocytes (%) (Auto) 4.0 % Eosinophils (%) (Auto) 0.1 % Basophils (%) (Auto) 0.0 % Neutrophils # (Auto) 6.98 K/uL Lymphocytes # (Auto) 0.85 K/uL Monocytes # (Auto) 0.33 K/uL Eosinophils # (Auto) 0.01 K/uL Basophils # (Auto) 0.00 K/uL RDW Standard Deviation 47.7 fL RDW Coefficient of Variation 13.5 % Immature Granulocyte % (Auto) 0.4 % Immature Granulocyte # (Auto) 0.03 K/uL Nucleated RBC Absolute Count (auto) 0.05 K/uL Nucleated Red Blood Cells % 0.6 % Dohle Bodies 1+ Platelet Estimate DECREASED Sodium Level 134 mmol/L 134 mmol/L Potassium Level 5.6 mmol/L 5.2 mmol/L Chloride Level 98 mmol/L 99 mmol/L Carbon Dioxide Level 22 mmol/L 23 mmol/L Anion Gap 14.0 mmol/L 12.0 mmol/L Blood Urea Nitrogen 123 mg/dl 116 mg/dl Creatinine 7.30 mg/dl 7.31 mg/dl Estimated GFR () 7.0 7.0 Estimated GFR (Non- 6.0 6.0 BUN/Creatinine Ratio 16.9 15.8 Random Glucose 146 mg/dl 119 mg/dl Calcium Level 9.2 mg/dl 8.8 mg/dl Magnesium Level 2.7 mg/dl Total Bilirubin 1.3 mg/dl Aspartate Amino Transf (AST/SGOT) 1730 U/L Alanine Aminotransferase (ALT/SGPT) 3157 U/L Alkaline Phosphatase 92 U/L Troponin I 196.000 ng/ml 104.000 ng/ml Total Protein 8.0 gm/dl Albumin 3.4 gm/dl Globulin 4.6 gm/dl Albumin/Globulin Ratio 0.7 Urine Color YELLOW Urine Appearance CLOUDY Urine pH 5.0 Urine Specific [place] 1.018 Urine Protein 1+ Urine Glucose (UA) NEG Urine Ketones NEG Urine Occult Blood 2+ Urine Nitrite NEG Urine Bilirubin NEG Urine Urobilinogen NEG Urine Leukocyte Esterase TRACE Urine WBC (Auto) 5-10 /hpf Urine RBC (Auto) 0-4 /hpf Urine Hyaline Casts (Auto) 5-10 /lpf Urine Epithelial Cells (Auto) >30 /lpf Urine Bacteria (Auto) NEG Urine Crystals Urine Pathogenic Casts See comments /lpf Urine Yeast (Auto) Bedside Glucose 115 mg/dl Est Creatinine Clear Calc Drug Dose 6.0 ml/min Phosphorus Level 4.9 mg/dl Total Creatine Kinase 660 U/L Acetaminophen Level < 2 ug/ml Lyme Disease IgG Antibody NEG Lyme Disease IgM Antibody NEG Hepatitis B Surface Antigen NEG Hepatitis C Antibody NEG Test 05/25/17 05:24 White Blood Count 7.06 K/uL Red Blood Count 3.83 M/uL Hemoglobin 13.1 g/dL Hematocrit 36.6 % Mean Corpuscular Volume 95.6 fL Mean Corpuscular Hemoglobin 34.2 pg Mean Corpuscular Hemoglobin Concent 35.8 g/dl Platelet Count 47 K/uL Mean Platelet Volume 10.8 fL Neutrophils (%) (Auto) 81.2 % Lymphocytes (%) (Auto) 11.5 % Monocytes (%) (Auto) 6.8 % Eosinophils (%) (Auto) 0.1 % Basophils (%) (Auto) 0.1 % Neutrophils # (Auto) 5.73 K/uL Lymphocytes # (Auto) 0.81 K/uL Monocytes # (Auto) 0.48 K/uL Eosinophils # (Auto) 0.01 K/uL Basophils # (Auto) 0.01 K/uL RDW Standard Deviation 46.4 fL RDW Coefficient of Variation 13.3 % Immature Granulocyte % (Auto) 0.3 % Immature Granulocyte # (Auto) 0.02 K/uL Nucleated RBC Absolute Count (auto) 0.05 K/uL Nucleated Red Blood Cells % 0.7 % Echinocytes 1+ Prothrombin Time 13.6 SECONDS Prothromb Time International Ratio 1.3 Activated Partial Thromboplast Time 29.2 SECONDS Partial Thromboplastin Ratio 1.1 Sodium Level 136 mmol/L Potassium Level 5.9 mmol/L Chloride Level 102 mmol/L Carbon Dioxide Level 19 mmol/L Anion Gap 15.0 mmol/L Blood Urea Nitrogen 126 mg/dl Creatinine 7.01 mg/dl Est Creatinine Clear Calc Drug Dose 6.2 ml/min Estimated GFR () 7.3 Estimated GFR (Non- 6.3 BUN/Creatinine Ratio 18.1 Random Glucose 123 mg/dl Calcium Level 8.6 mg/dl Phosphorus Level 4.7 mg/dl Magnesium Level 2.4 mg/dl Total Bilirubin 1.2 mg/dl Direct Bilirubin 0.4 mg/dl Aspartate Amino Transf (AST/SGOT) 897 U/L Alanine Aminotransferase (ALT/SGPT) 2312 U/L Alkaline Phosphatase 80 U/L Troponin I 36.300 ng/ml Total Protein 7.0 gm/dl Albumin 2.9 gm/dl Triglycerides Level 146 mg/dl Cholesterol Level 144 mg/dl HDL Cholesterol 24 mg/dl LDL Cholesterol, Calculated 91 mg/dl VLDL Cholesterol, Calculated 29 mg/dl Cholesterol/HDL Ratio 6.0 Lipase 619 U/L Thyroid Stimulating Hormone (TSH) 5.870 uIu/ml Free Thyroxine 1.23 ng/dl Monoscreen NEG Impression Patient is a 89 year old male with a poor medical picture including an NSTEMI and multiorgan failure. His troponin was initially found to be 196 and he has significant renal failure & transaminitis with an initial AST of 1730 and an initial ALT of 3157. These liver enzymes have trended down to 897 and 2312 respectively as troponin has downtrended. CT liver & US liver imaging has been unremarkable. Plan Given the absence of apparent risk factors for liver disease, suspect that this is related to ischemia/shock vs less likely infection. Would recommend checking for influenza if not performed already. I will also order studies to exclude other underlying causes of liver failure including DANIEL, AMA, ASMA, & liver- kidney microsomal antibodies. Would recommend following liver enzymes closely. At this point, it appears that the patient is a full-code, however consideration could be given to further family discussion to address goals of care as the clinical situation unfolds. Thank you for allowing us to participate in the care of this patient. If you should have any further questions or concerns, do not hesitate to contact us. 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
--- NOTE | 2017-05-25 11:05 | ECHOCARDIOGRAM REPORT ---
*NOTICE TO RECEIVING DEMOCRAT AGENCY This information is strictly Confidential and protected under [place] law. [place] law prohibits you from making any further disclosure of this information unless further disclosure is expressly permitted by the written consent of the person to whom it pertains or is authorized by law. A general authorization for the release of medical or other information is not sufficient for this purpose. Hospital accepts no responsibility if the information is made available to any other person, INCLUDING THE PATIENT. Interpretation Summary * Name: PAT LANCASTER Study Date: 05/25/2017 07:23 AM BP: 109/69 mmHg * Patient Location: .[facility]\S\E103\S\1 HR: 54 * : 1925 (M/d/yyy) Gender: Male * Age: 89 yrs Ethnicity: [place] Weight: 160 lb * Ordering Physician: Reji Brown * Referring Physician: Self, Referred * Performed By: Sandra Mays RDCS * * Reason For Study: Congestive Heart Failure * -- Conclusions -- * 1. Normal LV size. Borderline concentric LVH. * 2. Moderate to severe LV dysfunction. LVEF 30-35%. Inferior wall, basal inferolateral and inferoseptal segments akinetic (see hinaseye for details). * 3. RV mildly dilated with severe RV dysfunction. * 4. Mild to moderate mitral regurgitation. * 5. Mild to moderate TR. Borderline PH (Est PASP 35-40 mmHg). Elevated CVP (Est RA 15 mmHg). * 6. No prior studies for comparison. Procedure Details * A complete two-dimensional transthoracic echocardiogram was performed (2D, M-mode, Doppler and color flow Doppler). * A contrast injection of Definity was performed to improve assessment of LV function. * Contrast was injected into an intravenous site in the right arm. * One vial of Definity ultrasound contrast was diluted in normal saline to a total volume of 10 ml. A total of '2' ml of solution was administered during imaging. * Lot # [id number] of Definity utilized for procedure. * Expiration date . * The attending nurse who injected the contrast agent was ZANE Sin. Left Ventricle * The left ventricle is grossly normal size. * There is borderline concentric left ventricular hypertrophy. * Ejection Fraction = 30-35%. * Inferior wall, basal inferolateral and inferoseptal segments akinetic. Right Ventricle * The right ventricle is mildly dilated. * The right ventricular systolic function is severely reduced. Atria * The left atrial size is normal. * The right atrium is mildly dilated. * There is no evidence of atrial septal defect, but resolution does not allow assessment for a patent foramen ovale. Mitral Valve * There is mild mitral annular calcification. * There is no mitral valve stenosis. * There is mild to moderate mitral regurgitation. Tricuspid Valve * The tricuspid valve anatomy is normal. * There is no tricuspid stenosis. * There is mild to moderate tricuspid regurgitation. Aortic Valve * The aortic valve opens well. * Aortic valve sclerosis mild, without significant aortic valvular stenosis. * The aortic valve is trileaflet. * No hemodynamically significant valvular aortic stenosis. * There is no significant aortic regurgitation. Pulmonic Valve * The pulmonary valve is inadequately visualized, but the Doppler data is adequate for interpretation. * There is no pulmonic valvular stenosis. * Trace pulmonic valvular regurgitation. Great Vessels * The aortic root and proximal ascending aorta are normal sized. Pericardium/Pleural * There is no pericardial effusion. Great Vessels * Dilated inferior vena cava with reduced collapsability with sniff indicates an elevated right atrial pressure of 15 mmHg * PASP 35-40 mmHg MMode 2D Measurements and Calculations IVSd 1.1 cm IVSs 1.1 cm LVIDd 3.6 cm LVIDs 3.1 cm LVPWd 1.0 cm LVPWs 1.2 cm IVS/LVPW 1.1 FS 13.4 % EDV(Teich) 53.5 ml ESV(Teich) 37.8 ml EF(Teich) 29.4 % EDV(cubed) 45.7 ml ESV(cubed) 29.7 ml EF(cubed) 35.1 % % IVS thick -1.69 % % LVPW thick 21.2 % LV mass(C)d 119.0 grams LV mass(C)s 110.2 grams SV(Teich) 15.8 ml SV(cubed) 16.0 ml Ao root diam 3.1 cm Ao root area 7.6 cm\S\2 ACS 1.5 cm LA dimension 2.8 cm LA/Ao 0.89 LVAd ap4 20.1 cm\S\2 LVLd ap4 6.5 cm EDV(MOD-sp4) 54.2 ml EDV(sp4-el) 53.1 ml LVAs ap4 18.0 cm\S\2 LVLs ap4 7.1 cm ESV(MOD-sp4) 40.1 ml ESV(sp4-el) 38.6 ml EF(MOD-sp4) 26.0 % EF(sp4-el) 27.3 % LVAd ap2 26.8 cm\S\2 LVLd ap2 7.3 cm EDV(MOD-sp2) 82.4 ml EDV(sp2-el) 83.1 ml LVAs ap2 21.9 cm\S\2 LVLs ap2 6.9 cm ESV(MOD-sp2) 57.7 ml ESV(sp2-el) 58.8 ml EF(MOD-sp2) 30.1 % EF(sp2-el) 29.1 % LVLd %diff 11.9 % EDV(MOD-bp) 71.2 ml LVLs %diff -2.10 % ESV(MOD-bp) 48.2 ml EF(MOD-bp) 32.3 % SV(MOD-sp4) 14.1 ml SV(MOD-sp2) 24.8 ml SV(MOD-bp) 23.0 ml SV(sp4-el) 14.5 ml SV(sp2-el) 24.2 ml Doppler Measurements and Calculations MV E max filiberto 79.3 cm/sec MV A max filiberto 101.5 cm/sec MV E/A 0.78 MV dec time 0.27 sec Ao V2 max 84.7 cm/sec Ao max PG 2.9 mmHg Ao max PG (full) 0.83 mmHg LV V1 max PG 2.0 mmHg LV V1 max 71.3 cm/sec PA V2 max 94.5 cm/sec PA max PG 3.6 mmHg PI max filiberto 46.9 cm/sec PI max PG 0.88 mmHg PI dec slope 39.6 cm/sec\S\2 PI P1/2t 346.5 msec TR max filiberto 211.9 cm/sec
--- NOTE | 2017-05-25 12:11 | Clinical Documentation Query ---
QUERY 1 OF [address], In your clinical opinion is this patient being managed for: ( ) Metabolic encephalopathy ( x ) Not Agree ( ) Other explanation of clinical findings (Please Explain) ( ) Unable to determine (Please Define) ( ) Need to Discuss The medical record reflects the following clinical findings, treatment, and risk factors. Clinical Indicators: 89 yo male presenting with NSTEMI and ISAIAS. In ER, noted to be alert, oriented however has since become drowsy and lethargic. BUN 123, Cr 7.30, Trop 196/104/36.3, AST 1730, Alt 3157 Treatment: IV fluids, monitor PRP's, nephrology,cardiology, collar setter overlock consults, Risk Factors: multisystem organ failure, NSTEMI, ISAIAS, acute hepatic failure, cardiogenic shock QUERY 2 OF 3 In your clinical opinion is this patient being managed for: ( x ) Acute kidney failure with ATN ( ) Not Agree ( ) Other explanation of clinical findings (Please Explain) ( ) Unable to determine (Please Define) ( ) Need to Discuss The medical record reflects the following clinical findings, treatment, and risk factors. Clinical Indicators: BUN 123, Cr 7.30, granular casts and epithel cells >30 in UA, pt oliguric. Neprhology consult indicates need for urgent dialysis if family is in agreement. Treatment:Nephrology consult, IV fluids, monitor PRP's, ICU Risk Factors: multisystem organ failure, NSTEMI QUERY 3 OF 3 Multiple codes exist for coding hepatic failure. Coders need to know the acuity/chronicity. In your clinical opinion is this patient being managed for: ( ) Acute hepatic failure ( x ) Not Agree Not in liver failure, INR normal, just transaminitis from RV failure ( ) Other explanation of clinical findings (Please Explain) ( ) Unable to determine (Please Define) ( ) Need to Discuss The medical record reflects the following clinical findings, treatment, and risk factors. Clinical Indicators: Nephrology consult indicate pt with hepatic failure. Treatment: ICU monitoring, cardiology consult, GI consult, nephrology consult, IV fluids, monitor , DANIEL, AMA, ASMA, liver-kidney microsomal antibodies, follow liver enzymes closely Risk Factors: NSTEMI, age, multisystem organ failure Please clarify and document your clinical opinion in the progress notes and discharge summary. Terms such as "probable", "suspected", "likely", "questionable", "possible", or "still to be ruled out" are acceptable. IF IN AGREEMENT, YOU MUST DOCUMENT ABOVE DIAGNOSTIC STATEMENT IN DAILY PROGRESS NOTES AND DISCHARGE SUMMARY. This document is not part of the patient's record. Thank You, Alie Willett, RN [phone]
--- NOTE | 2017-05-25 13:25 | Cardiology Consultation ---
Cardiology Consultation Date of Consultation: May 25, 2017. Requesting Physician: Dr. Nuno History of Present Illness Mr. Rae is an 89-year-old man current admitted to the ICU in the setting of renal failure, liver failure and recent acute ND. Prior to recent episode had minimal health problems. Was in his usual state of health until Sunday night when went to bed and woke up with shortness of breath, fatigue, decreased energy to the point where was unable to get out of bed. Denies any associated chest pain around the time of this event. Over the preceding 2 days generalized fatigue, feeling unwell has persisted. Eventually presented to urgent care and was noted to have a creatinine greater than 7 the and LFTs greater than 3000 and sent to ED. Upon arrival to the ED he was hemodynamically stable, chest pain-free. His initial EKG showed subtle inferior ST elevations with inferior Q-waves. Initial troponin elevated to 196. Troponin has subsequently trended down to 30s. Overnight has remained hemodynamically stable. Heart rates in the 50-60s. With gentle IV fluids renal function, metabolic acidosis, hyperkalemia unchanged. LFTs down trending. Past Medical/Surgical History Hypothyroidism, osteoarthritis, mild cognitive impairment, dyslipidemia, chronic kidney disease stage 3 Social History Smoking Status: Former Smoker History of Alcohol Use: No Review of Systems Respiratory: No cough, No shortness of breath, No dyspnea on exertion Cardiac: No chest pain Abdomen: No pain Male : No dysuria Heme: No abnormal bleeding/bruising Endo: + fatigue Skin: No rash 10 point review of systems was completed and was otherwise negative unless stated in HPI Allergies Coded Allergies: Niacin (Verified Allergy, Mild, RASH, 05/24/17) Medications Current Inpatient Medications Medications (Trade) Dose Ordered Sig/Sahil Route Start Time Stop Time Status Last Admin Dose Admin Levothyroxine Sodium (Synthroid Tab) 100 mcg DAILYBB PO 05/25/17 06:00 06/24/17 06:59 05/25/17 05:58 100 MCG Miscellaneous Information (Icu Protocol For Hyperglycemia) 1 ea PRN PRN N/A 05/24/17 18:45 05/26/17 18:44 Sodium Chloride 1,000 ml @ 100 mls/hr Q10H IV 05/24/17 19:15 05/25/17 13:32 05/25/17 08:45 100 MLS/HR Ranitidine HCl (zANTac TAB) 150 mg BID PO 05/25/17 09:00 06/24/17 08:59 05/25/17 07:55 150 MG Miscellaneous Information (Icu Protocol For Hyperglycemia) 1 ea PRN PRN N/A 05/24/17 23:15 05/26/17 23:14 Physical Exam Vital Signs Past 12 Hours Date Time Temp Pulse Resp B/P (MAP) Pulse Ox O2 Delivery O2 Flow Rate FiO2 05/25/17 08:00 Room Air 05/25/17 07:45 93 Room Air 05/25/17 06:00 54 22 109/69 (82) 93 Room Air 05/25/17 04:00 94 Room Air 05/25/17 04:00 36.6 54 20 108/63 (78) 94 Room Air 05/25/17 02:00 58 20 118/65 (82) 93 Room Air General: Comfortable, no acute distress Eyes: Sclerae anicteric, extraocular movements intact HENT: Oropharynx clear mucous membranes moist Neck: Jugular venous distention to the earlobe signs of venous plethora across the chest Lungs: Crackles at the bases bilaterally Cardiac: Regular rate and rhythm, 2/6 holosystolic murmur at the apex. No significant peripheral edema. Extremities well perfused. Vascular: Normal carotid upstrokes, no bruits. 2+ radial, DP and PT pulses. No varicosities. Abdomen: Soft, nontender, nondistended positive bowel sounds. No hepatosplenomegaly Musculoskeletal: Normal gait. No joint deformities Skin: No rashes or lesions. Neuro: Cranial nerves 2-12 grossly intact, remainder exam nonfocal Psych: Alert oriented Data Laboratory Results: Last 24 Hours Test 05/24/17 16:28 05/24/17 21:30 05/24/17 22:04 05/24/17 23:07 White Blood Count 8.20 K/uL Red Blood Count 4.10 M/uL Hemoglobin 14.0 g/dL Hematocrit 39.4 % Mean Corpuscular Volume 96.1 fL Mean Corpuscular Hemoglobin 34.1 pg Mean Corpuscular Hemoglobin Concent 35.5 g/dl Platelet Count 52 K/uL Mean Platelet Volume 10.8 fL Neutrophils (%) (Auto) 85.1 % Lymphocytes (%) (Auto) 10.4 % Monocytes (%) (Auto) 4.0 % Eosinophils (%) (Auto) 0.1 % Basophils (%) (Auto) 0.0 % Neutrophils # (Auto) 6.98 K/uL Lymphocytes # (Auto) 0.85 K/uL Monocytes # (Auto) 0.33 K/uL Eosinophils # (Auto) 0.01 K/uL Basophils # (Auto) 0.00 K/uL RDW Standard Deviation 47.7 fL RDW Coefficient of Variation 13.5 % Immature Granulocyte % (Auto) 0.4 % Immature Granulocyte # (Auto) 0.03 K/uL Nucleated RBC Absolute Count (auto) 0.05 K/uL Nucleated Red Blood Cells % 0.6 % Dohle Bodies 1+ Platelet Estimate DECREASED Sodium Level 134 mmol/L 134 mmol/L Potassium Level 5.6 mmol/L 5.2 mmol/L Chloride Level 98 mmol/L 99 mmol/L Carbon Dioxide Level 22 mmol/L 23 mmol/L Anion Gap 14.0 mmol/L 12.0 mmol/L Blood Urea Nitrogen 123 mg/dl 116 mg/dl Creatinine 7.30 mg/dl 7.31 mg/dl Estimated GFR () 7.0 7.0 Estimated GFR (Non- 6.0 6.0 BUN/Creatinine Ratio 16.9 15.8 Random Glucose 146 mg/dl 119 mg/dl Calcium Level 9.2 mg/dl 8.8 mg/dl Magnesium Level 2.7 mg/dl Total Bilirubin 1.3 mg/dl Aspartate Amino Transf (AST/SGOT) 1730 U/L Alanine Aminotransferase (ALT/SGPT) 3157 U/L Alkaline Phosphatase 92 U/L Troponin I 196.000 ng/ml 104.000 ng/ml Total Protein 8.0 gm/dl Albumin 3.4 gm/dl Globulin 4.6 gm/dl Albumin/Globulin Ratio 0.7 Urine Color YELLOW Urine Appearance CLOUDY Urine pH 5.0 Urine Specific [place] 1.018 Urine Protein 1+ Urine Glucose (UA) NEG Urine Ketones NEG Urine Occult Blood 2+ Urine Nitrite NEG Urine Bilirubin NEG Urine Urobilinogen NEG Urine Leukocyte Esterase TRACE Urine WBC (Auto) 5-10 /hpf Urine RBC (Auto) 0-4 /hpf Urine Hyaline Casts (Auto) 5-10 /lpf Urine Epithelial Cells (Auto) >30 /lpf Urine Bacteria (Auto) NEG Urine Crystals Urine Pathogenic Casts See comments /lpf Urine Yeast (Auto) Bedside Glucose 115 mg/dl Est Creatinine Clear Calc Drug Dose 6.0 ml/min Phosphorus Level 4.9 mg/dl Total Creatine Kinase 660 U/L Acetaminophen Level < 2 ug/ml Lyme Disease IgG Antibody NEG Lyme Disease IgM Antibody NEG Hepatitis B Surface Antigen NEG Hepatitis C Antibody NEG Test 05/25/17 05:24 05/25/17 09:43 White Blood Count 7.06 K/uL Red Blood Count 3.83 M/uL Hemoglobin 13.1 g/dL Hematocrit 36.6 % Mean Corpuscular Volume 95.6 fL Mean Corpuscular Hemoglobin 34.2 pg Mean Corpuscular Hemoglobin Concent 35.8 g/dl Platelet Count 47 K/uL Mean Platelet Volume 10.8 fL Neutrophils (%) (Auto) 81.2 % Lymphocytes (%) (Auto) 11.5 % Monocytes (%) (Auto) 6.8 % Eosinophils (%) (Auto) 0.1 % Basophils (%) (Auto) 0.1 % Neutrophils # (Auto) 5.73 K/uL Lymphocytes # (Auto) 0.81 K/uL Monocytes # (Auto) 0.48 K/uL Eosinophils # (Auto) 0.01 K/uL Basophils # (Auto) 0.01 K/uL RDW Standard Deviation 46.4 fL RDW Coefficient of Variation 13.3 % Immature Granulocyte % (Auto) 0.3 % Immature Granulocyte # (Auto) 0.02 K/uL Nucleated RBC Absolute Count (auto) 0.05 K/uL Nucleated Red Blood Cells % 0.7 % Echinocytes 1+ Prothrombin Time 13.6 SECONDS Prothromb Time International Ratio 1.3 Activated Partial Thromboplast Time 29.2 SECONDS Partial Thromboplastin Ratio 1.1 Sodium Level 136 mmol/L Potassium Level 5.9 mmol/L Chloride Level 102 mmol/L Carbon Dioxide Level 19 mmol/L Anion Gap 15.0 mmol/L Blood Urea Nitrogen 126 mg/dl Creatinine 7.01 mg/dl Est Creatinine Clear Calc Drug Dose 6.2 ml/min Estimated GFR () 7.3 Estimated GFR (Non- 6.3 BUN/Creatinine Ratio 18.1 Random Glucose 123 mg/dl Calcium Level 8.6 mg/dl Phosphorus Level 4.7 mg/dl Magnesium Level 2.4 mg/dl Total Bilirubin 1.2 mg/dl Direct Bilirubin 0.4 mg/dl Aspartate Amino Transf (AST/SGOT) 897 U/L Alanine Aminotransferase (ALT/SGPT) 2312 U/L Alkaline Phosphatase 80 U/L Troponin I 36.300 ng/ml Total Protein 7.0 gm/dl Albumin 2.9 gm/dl Triglycerides Level 146 mg/dl Cholesterol Level 144 mg/dl HDL Cholesterol 24 mg/dl LDL Cholesterol, Calculated 91 mg/dl VLDL Cholesterol, Calculated 29 mg/dl Cholesterol/HDL Ratio 6.0 Lipase 619 U/L Thyroid Stimulating Hormone (TSH) 5.870 uIu/ml Free Thyroxine 1.23 ng/dl Monoscreen NEG Imaging: Echo EF 30-35%, inferior, inferolateral, inferoseptal akinesis. Severe RV dysfunction. Mild to moderate MR. Dilated IVC EKG: Sinus bradycardia, first-degree AV block, ventricular rate 57, Q-waves in leads [address] with subtle ST elevation Telemetry reviewed: Sinus bradycardia, no ventricular events Assessment & Plan 1. Inferior ND/RV infarct 2. Acute renal failure, suspected ATN secondary to cardiogenic shock/RV failure 3. 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 Thrombocytopenia. Patient appears to have had a major ND earlier in the week. 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 Suspect renal and hepatic failure secondary to prior cardiogenic shock/RV failure. Unfortunately ND event has occurred (trop trending down, chest pain free) and no benefit to attempts at revascularization at this time. Cardiac management going forward focused on optimizing hemodynamics and secondary prevention. At present patient appears well perfused, with echo/clinical evidence of elevated right sided filling pressures. -- Stop additional IV fluids. Cautious fluid removal per nephrology and dialysis. -- Avoid nitrates, beta-blockers at this time. -- Blood pressure stable and appears adequately perfused on exam -- would hold of on inotropes for now. Lactate pending. -- Start aspirin 81 mg daily. Hold of on plavix, anticoagulation for now. If platelets stable will consider addition of plavix later in hospitalization. Will continue to follow while in hospital.
--- NOTE | 2017-05-25 16:04 | Critical Care Progress Note ---
Critical Care Progress Note Date of Service May 25, 2017. ICU Day ICU Day Number: [address] Hercules Subjective Patient is comfortable, resting. Very heard of hearing Objective General: NAD, elderly male Heent: NC/AT CVS: S1S2 regular Lungs: CTA b/l Abd: soft, non-tender Ext: no edema [employer]ES: heard of hearing, but otherwise AAO x 3, transferred out of bed to toilet Assessment & Plan Acute DC Acute kidney injury Thrombocytopenia Plan: Troponin trending down. Echo reviewed, has poor EF, significant wall motion abnormalities. Cardiology evaluation noted. At this point the DC is established, no benefit from urgent revascularization. Starting ASA 81 mg. Decrease IV fluids to 75 ml/hr Monitor electrolytes closely. Treated for hyperkalemia, follow up repeat chemistry Holding off HD for now, no urgent need. Encephalopathy resolved, no acidosis for now, no evidence of fluid overload. Hyperkalemia treated medically Insert Barriga catheter Platelets stabilized DVT prophylaxis: SCDs Critical care time spent with patient, family, reviewing the chart, discussing with consultants, greater than 35 minutes Data Medications: Current Inpatient Medications Medications (Trade) Dose Ordered Sig/Sahil Route Start Time Stop Time Status Last Admin Dose Admin Levothyroxine Sodium (Synthroid Tab) 100 mcg DAILYBB PO 05/25/17 06:00 06/24/17 06:59 05/25/17 05:58 100 MCG Miscellaneous Information (Icu Protocol For Hyperglycemia) 1 ea PRN PRN N/A 05/24/17 18:45 05/26/17 18:44 Ranitidine HCl (zANTac TAB) 150 mg BID PO 05/25/17 09:00 06/24/17 08:59 05/25/17 07:55 150 MG Miscellaneous Information (Icu Protocol For Hyperglycemia) 1 ea PRN PRN N/A 05/24/17 23:15 05/26/17 23:14 I & O: 24-Hour Column 05/26/17 08:00 Intake Total 974 ml Output Total 225 ml Balance 749 ml Vital Signs: Date Time Temp Pulse Resp B/P (MAP) Pulse Ox O2 Delivery O2 Flow Rate FiO2 05/25/17 15:00 54 19 98/63 (75) 91 05/25/17 14:01 70 21 98/74 (82) 92 Room Air 05/25/17 13:00 53 19 99/52 (68) 92 05/25/17 12:00 93 Room Air 05/25/17 12:00 36.6 65 26 109/72 (84) 91 Room Air 05/25/17 11:00 53 19 91/56 (68) 93 05/25/17 10:00 71 22 127/74 (91) 92 Room Air 05/25/17 09:00 72 20 92 05/25/17 08:00 Room Air 05/25/17 08:00 36.7 57 27 110/69 (83) 92 Room Air 05/25/17 07:45 93 Room Air 05/25/17 07:00 54 27 111/68 (82) 93 05/25/17 06:00 54 22 109/69 (82) 93 Room Air 05/25/17 04:00 94 Room Air 05/25/17 04:00 36.6 54 20 108/63 (78) 94 Room Air 05/25/17 02:00 58 20 118/65 (82) 93 Room Air 05/25/17 00:01 36.5 53 20 112/67 (82) 93 Room Air 05/24/17 23:59 93 Room Air 05/24/17 23:18 36.4 58 17 103/65 95 Room Air 05/24/17 21:12 36.5 57 18 121/72 95 05/24/17 19:18 57 18 121/72 95 Room Air 05/24/17 17:34 57 16 106/64 94 05/24/17 16:24 57 16 130/68 93 Room Air Laboratory Results: Last 24 Hours Test 05/24/17 16:28 05/24/17 21:30 05/24/17 22:04 05/24/17 23:07 White Blood Count 8.20 K/uL Red Blood Count 4.10 M/uL Hemoglobin 14.0 g/dL Hematocrit 39.4 % Mean Corpuscular Volume 96.1 fL Mean Corpuscular Hemoglobin 34.1 pg Mean Corpuscular Hemoglobin Concent 35.5 g/dl Platelet Count 52 K/uL Mean Platelet Volume 10.8 fL Neutrophils (%) (Auto) 85.1 % Lymphocytes (%) (Auto) 10.4 % Monocytes (%) (Auto) 4.0 % Eosinophils (%) (Auto) 0.1 % Basophils (%) (Auto) 0.0 % Neutrophils # (Auto) 6.98 K/uL Lymphocytes # (Auto) 0.85 K/uL Monocytes # (Auto) 0.33 K/uL Eosinophils # (Auto) 0.01 K/uL Basophils # (Auto) 0.00 K/uL RDW Standard Deviation 47.7 fL RDW Coefficient of Variation 13.5 % Immature Granulocyte % (Auto) 0.4 % Immature Granulocyte # (Auto) 0.03 K/uL Nucleated RBC Absolute Count (auto) 0.05 K/uL Nucleated Red Blood Cells % 0.6 % Dohle Bodies 1+ Platelet Estimate DECREASED Sodium Level 134 mmol/L 134 mmol/L Potassium Level 5.6 mmol/L 5.2 mmol/L Chloride Level 98 mmol/L 99 mmol/L Carbon Dioxide Level 22 mmol/L 23 mmol/L Anion Gap 14.0 mmol/L 12.0 mmol/L Blood Urea Nitrogen 123 mg/dl 116 mg/dl Creatinine 7.30 mg/dl 7.31 mg/dl Estimated GFR () 7.0 7.0 Estimated GFR (Non- 6.0 6.0 BUN/Creatinine Ratio 16.9 15.8 Random Glucose 146 mg/dl 119 mg/dl Calcium Level 9.2 mg/dl 8.8 mg/dl Magnesium Level 2.7 mg/dl Total Bilirubin 1.3 mg/dl Aspartate Amino Transf (AST/SGOT) 1730 U/L Alanine Aminotransferase (ALT/SGPT) 3157 U/L Alkaline Phosphatase 92 U/L Troponin I 196.000 ng/ml 104.000 ng/ml Total Protein 8.0 gm/dl Albumin 3.4 gm/dl Globulin 4.6 gm/dl Albumin/Globulin Ratio 0.7 Urine Color YELLOW Urine Appearance CLOUDY Urine pH 5.0 Urine Specific [place] 1.018 Urine Protein 1+ Urine Glucose (UA) NEG Urine Ketones NEG Urine Occult Blood 2+ Urine Nitrite NEG Urine Bilirubin NEG Urine Urobilinogen NEG Urine Leukocyte Esterase TRACE Urine WBC (Auto) 5-10 /hpf Urine RBC (Auto) 0-4 /hpf Urine Hyaline Casts (Auto) 5-10 /lpf Urine Epithelial Cells (Auto) >30 /lpf Urine Bacteria (Auto) NEG Urine Crystals Urine Pathogenic Casts See comments /lpf Urine Yeast (Auto) Bedside Glucose 115 mg/dl Est Creatinine Clear Calc Drug Dose 6.0 ml/min Phosphorus Level 4.9 mg/dl Total Creatine Kinase 660 U/L Acetaminophen Level < 2 ug/ml Lyme Disease IgG Antibody NEG Lyme Disease IgM Antibody NEG Hepatitis B Surface Antigen NEG Hepatitis C Antibody NEG Test 05/25/17 05:24 05/25/17 09:43 White Blood Count 7.06 K/uL Red Blood Count 3.83 M/uL Hemoglobin 13.1 g/dL Hematocrit 36.6 % Mean Corpuscular Volume 95.6 fL Mean Corpuscular Hemoglobin 34.2 pg Mean Corpuscular Hemoglobin Concent 35.8 g/dl Platelet Count 47 K/uL Mean Platelet Volume 10.8 fL Neutrophils (%) (Auto) 81.2 % Lymphocytes (%) (Auto) 11.5 % Monocytes (%) (Auto) 6.8 % Eosinophils (%) (Auto) 0.1 % Basophils (%) (Auto) 0.1 % Neutrophils # (Auto) 5.73 K/uL Lymphocytes # (Auto) 0.81 K/uL Monocytes # (Auto) 0.48 K/uL Eosinophils # (Auto) 0.01 K/uL Basophils # (Auto) 0.01 K/uL RDW Standard Deviation 46.4 fL RDW Coefficient of Variation 13.3 % Immature Granulocyte % (Auto) 0.3 % Immature Granulocyte # (Auto) 0.02 K/uL Nucleated RBC Absolute Count (auto) 0.05 K/uL Nucleated Red Blood Cells % 0.7 % Echinocytes 1+ Prothrombin Time 13.6 SECONDS Prothromb Time International Ratio 1.3 Activated Partial Thromboplast Time 29.2 SECONDS Partial Thromboplastin Ratio 1.1 Sodium Level 136 mmol/L Potassium Level 5.9 mmol/L Chloride Level 102 mmol/L Carbon Dioxide Level 19 mmol/L Anion Gap 15.0 mmol/L Blood Urea Nitrogen 126 mg/dl Creatinine 7.01 mg/dl Est Creatinine Clear Calc Drug Dose 6.2 ml/min Estimated GFR () 7.3 Estimated GFR (Non- 6.3 BUN/Creatinine Ratio 18.1 Random Glucose 123 mg/dl Calcium Level 8.6 mg/dl Phosphorus Level 4.7 mg/dl Magnesium Level 2.4 mg/dl Total Bilirubin 1.2 mg/dl Direct Bilirubin 0.4 mg/dl Aspartate Amino Transf (AST/SGOT) 897 U/L Alanine Aminotransferase (ALT/SGPT) 2312 U/L Alkaline Phosphatase 80 U/L Troponin I 36.300 ng/ml Total Protein 7.0 gm/dl Albumin 2.9 gm/dl Triglycerides Level 146 mg/dl Cholesterol Level 144 mg/dl HDL Cholesterol 24 mg/dl LDL Cholesterol, Calculated 91 mg/dl VLDL Cholesterol, Calculated 29 mg/dl Cholesterol/HDL Ratio 6.0 Lipase 619 U/L Thyroid Stimulating Hormone (TSH) 5.870 uIu/ml Free Thyroxine 1.23 ng/dl Monoscreen NEG
--- NOTE | 2017-05-25 16:10 | Progress Note ---
Subjective Date of Service: May 25, 2017. Subjective Pt evaluation today including: conversation w/ patient, conversation w/ family , physical exam, lab review, review of studies, conversation w/ principal consultant, review of inpatient medication list Pain: no pain PO Intake: adequate Voiding: no voiding problems patient resting in bed, no complaints, no chest pain, no dyspnea long discussions with Dr. Mcmillan and Dr. Hercules regarding renal failure and possible need for HD vitals stable, no improvement in BUN/Cr with IV fluids, K was 5.9 this morning given Kayexalate, Dextrose and insulin patient would want HD if needed, opting to hold at this time to see if he improves, his urine output seems to be improving AST and ALT trending down, no RUQ pain, normal liver US Echo shows EF 35%, evidence of inferior and RV infarct appreciate consultation from Dr. Willett, no benefit in revascularization at this point updated family at the bedside Problem List Medical Problems: (1) Acute renal failure Status: Acute (2) Elevated troponin Status: Acute (3) Hearing loss Status: Chronic (4) Liver failure Status: Acute (5) NSTEMI (non-ST elevated myocardial infarction) Status: Acute (6) Thrombocytopenia Status: Acute (7) Transaminitis Status: Acute Review of Systems Constitutional: + weakness, + fatigue All Other Systems: Reviewed and Negative Medications Current Inpatient Medications Medications (Trade) Dose Ordered Sig/Sahil Route Start Time Stop Time Status Last Admin Dose Admin Levothyroxine Sodium (Synthroid Tab) 100 mcg DAILYBB PO 05/25/17 06:00 06/24/17 06:59 05/25/17 05:58 100 MCG Miscellaneous Information (Icu Protocol For Hyperglycemia) 1 ea PRN PRN N/A 05/24/17 18:45 05/26/17 18:44 Ranitidine HCl (zANTac TAB) 150 mg BID PO 05/25/17 09:00 06/24/17 08:59 05/25/17 07:55 150 MG Miscellaneous Information ([facility] Protocol For Hyperglycemia) 1 ea PRN PRN N/A 05/24/17 23:15 05/26/17 23:14 Objective Vital Signs Date Time Temp Pulse Resp B/P (MAP) Pulse Ox O2 Delivery O2 Flow Rate FiO2 05/25/17 15:00 54 19 98/63 (75) 91 05/25/17 14:01 70 21 98/74 (82) 92 Room Air 05/25/17 13:00 53 19 99/52 (68) 92 05/25/17 12:00 93 Room Air 05/25/17 12:00 36.6 65 26 109/72 (84) 91 Room Air 05/25/17 11:00 53 19 91/56 (68) 93 05/25/17 10:00 71 22 127/74 (91) 92 Room Air 05/25/17 09:00 72 20 92 05/25/17 08:00 Room Air 05/25/17 08:00 36.7 57 27 110/69 (83) 92 Room Air 05/25/17 07:45 93 Room Air 05/25/17 07:00 54 27 111/68 (82) 93 05/25/17 06:00 54 22 109/69 (82) 93 Room Air 05/25/17 04:00 94 Room Air 05/25/17 04:00 36.6 54 20 108/63 (78) 94 Room Air 05/25/17 02:00 58 20 118/65 (82) 93 Room Air 05/25/17 00:01 36.5 53 20 112/67 (82) 93 Room Air 05/24/17 23:59 93 Room Air 05/24/17 23:18 36.4 58 17 103/65 95 Room Air 05/24/17 21:12 36.5 57 18 121/72 95 05/24/17 19:18 57 18 121/72 95 Room Air 05/24/17 17:34 57 16 106/64 94 05/24/17 16:24 57 16 130/68 93 Room Air Physical Exam General Appearance: WD/WN, no apparent distress Eyes: normal inspection, EOMI, sclerae normal ENT: normal ENT inspection, hearing grossly normal, pharynx normal Neck: supple, no adenopathy, no JVD, trachea midline Respiratory/Chest: chest non-tender, lungs clear, normal breath sounds, no respiratory distress, no accessory muscle use Cardiovascular: regular rate, rhythm, no edema, no gallop, no JVD, no murmur Abdomen: normal bowel sounds, non tender, soft, no organomegaly Extremities: normal range of motion, non-tender, normal inspection, no pedal edema, no calf tenderness, pelvis stable Neurologic/Psychiatric: weaver tire cord II-XII nml as tested, no motor/sensory deficits, alert, normal mood/affect, oriented x 3 Skin: normal color, warm/dry, no rash Lymphatic: no adenopathy Laboratory Results Last 24 Hours Test 05/24/17 16:28 05/24/17 21:30 05/24/17 22:04 05/24/17 23:07 White Blood Count 8.20 K/uL Red Blood Count 4.10 M/uL Hemoglobin 14.0 g/dL Hematocrit 39.4 % Mean Corpuscular Volume 96.1 fL Mean Corpuscular Hemoglobin 34.1 pg Mean Corpuscular Hemoglobin Concent 35.5 g/dl Platelet Count 52 K/uL Mean Platelet Volume 10.8 fL Neutrophils (%) (Auto) 85.1 % Lymphocytes (%) (Auto) 10.4 % Monocytes (%) (Auto) 4.0 % Eosinophils (%) (Auto) 0.1 % Basophils (%) (Auto) 0.0 % Neutrophils # (Auto) 6.98 K/uL Lymphocytes # (Auto) 0.85 K/uL Monocytes # (Auto) 0.33 K/uL Eosinophils # (Auto) 0.01 K/uL Basophils # (Auto) 0.00 K/uL RDW Standard Deviation 47.7 fL RDW Coefficient of Variation 13.5 % Immature Granulocyte % (Auto) 0.4 % Immature Granulocyte # (Auto) 0.03 K/uL Nucleated RBC Absolute Count (auto) 0.05 K/uL Nucleated Red Blood Cells % 0.6 % Dohle Bodies 1+ Platelet Estimate DECREASED Sodium Level 134 mmol/L 134 mmol/L Potassium Level 5.6 mmol/L 5.2 mmol/L Chloride Level 98 mmol/L 99 mmol/L Carbon Dioxide Level 22 mmol/L 23 mmol/L Anion Gap 14.0 mmol/L 12.0 mmol/L Blood Urea Nitrogen 123 mg/dl 116 mg/dl Creatinine 7.30 mg/dl 7.31 mg/dl Estimated GFR () 7.0 7.0 Estimated GFR (Non- 6.0 6.0 BUN/Creatinine Ratio 16.9 15.8 Random Glucose 146 mg/dl 119 mg/dl Calcium Level 9.2 mg/dl 8.8 mg/dl Magnesium Level 2.7 mg/dl Total Bilirubin 1.3 mg/dl Aspartate Amino Transf (AST/SGOT) 1730 U/L Alanine Aminotransferase (ALT/SGPT) 3157 U/L Alkaline Phosphatase 92 U/L Troponin I 196.000 ng/ml 104.000 ng/ml Total Protein 8.0 gm/dl Albumin 3.4 gm/dl Globulin 4.6 gm/dl Albumin/Globulin Ratio 0.7 Urine Color YELLOW Urine Appearance CLOUDY Urine pH 5.0 Urine Specific [place] 1.018 Urine Protein 1+ Urine Glucose (UA) NEG Urine Ketones NEG Urine Occult Blood 2+ Urine Nitrite NEG Urine Bilirubin NEG Urine Urobilinogen NEG Urine Leukocyte Esterase TRACE Urine WBC (Auto) 5-10 /hpf Urine RBC (Auto) 0-4 /hpf Urine Hyaline Casts (Auto) 5-10 /lpf Urine Epithelial Cells (Auto) >30 /lpf Urine Bacteria (Auto) NEG Urine Crystals Urine Pathogenic Casts See comments /lpf Urine Yeast (Auto) Bedside Glucose 115 mg/dl Est Creatinine Clear Calc Drug Dose 6.0 ml/min Phosphorus Level 4.9 mg/dl Total Creatine Kinase 660 U/L Acetaminophen Level < 2 ug/ml Lyme Disease IgG Antibody NEG Lyme Disease IgM Antibody NEG Hepatitis B Surface Antigen NEG Hepatitis C Antibody NEG Test 05/25/17 05:24 05/25/17 09:43 05/25/17 15:57 White Blood Count 7.06 K/uL Red Blood Count 3.83 M/uL Hemoglobin 13.1 g/dL Hematocrit 36.6 % Mean Corpuscular Volume 95.6 fL Mean Corpuscular Hemoglobin 34.2 pg Mean Corpuscular Hemoglobin Concent 35.8 g/dl Platelet Count 47 K/uL Mean Platelet Volume 10.8 fL Neutrophils (%) (Auto) 81.2 % Lymphocytes (%) (Auto) 11.5 % Monocytes (%) (Auto) 6.8 % Eosinophils (%) (Auto) 0.1 % Basophils (%) (Auto) 0.1 % Neutrophils # (Auto) 5.73 K/uL Lymphocytes # (Auto) 0.81 K/uL Monocytes # (Auto) 0.48 K/uL Eosinophils # (Auto) 0.01 K/uL Basophils # (Auto) 0.01 K/uL RDW Standard Deviation 46.4 fL RDW Coefficient of Variation 13.3 % Immature Granulocyte % (Auto) 0.3 % Immature Granulocyte # (Auto) 0.02 K/uL Nucleated RBC Absolute Count (auto) 0.05 K/uL Nucleated Red Blood Cells % 0.7 % Echinocytes 1+ Prothrombin Time 13.6 SECONDS Prothromb Time International Ratio 1.3 Activated Partial Thromboplast Time 29.2 SECONDS Partial Thromboplastin Ratio 1.1 Sodium Level 136 mmol/L Potassium Level 5.9 mmol/L Chloride Level 102 mmol/L Carbon Dioxide Level 19 mmol/L Anion Gap 15.0 mmol/L Blood Urea Nitrogen 126 mg/dl Creatinine 7.01 mg/dl Est Creatinine Clear Calc Drug Dose 6.2 ml/min Estimated GFR () 7.3 Estimated GFR (Non- 6.3 BUN/Creatinine Ratio 18.1 Random Glucose 123 mg/dl Calcium Level 8.6 mg/dl Phosphorus Level 4.7 mg/dl Magnesium Level 2.4 mg/dl Total Bilirubin 1.2 mg/dl Direct Bilirubin 0.4 mg/dl Aspartate Amino Transf (AST/SGOT) 897 U/L Alanine Aminotransferase (ALT/SGPT) 2312 U/L Alkaline Phosphatase 80 U/L Troponin I 36.300 ng/ml Total Protein 7.0 gm/dl Albumin 2.9 gm/dl Triglycerides Level 146 mg/dl Cholesterol Level 144 mg/dl HDL Cholesterol 24 mg/dl LDL Cholesterol, Calculated 91 mg/dl VLDL Cholesterol, Calculated 29 mg/dl Cholesterol/HDL Ratio 6.0 Lipase 619 U/L Thyroid Stimulating Hormone (TSH) 5.870 uIu/ml Free Thyroxine 1.23 ng/dl Monoscreen NEG Assessment and Plan 89 y/o M who until recently has been relatively healthy and independent. 10 days ago he developed a flu-like illness. He was generally weak but was not able to describe any specific symptoms. One day prior he visited his primary care clinic. He was sent home after labs and a CXR were obtained. The pt was then called back and told to attend the hospital due to highly abnormal labs. His lab results are in fact catastrophic. The pts troponin is 196 with only questionable inferior EKG changes. His creatinine is 7.2 and his ALT is > 3500. Labs obtained 11/27 were relatively normal aside from a creatinine of 1.4. The pt is remarkably asymptomatic and has no specific complaints. He denies chest or abdominal pain, denies SOB, cough, diarrhea, dysuria, oliguria or fevers. His CXR is suspicious for congestion without definitive pathology. A CT abdomen was not consistent with cirrhosis or renal outlet obstruction. - Recent WA, posterior and inferior, RV involved: aspirin, hold on Plavix due to thrombocytopenia - Acute systolic and RV heart failure: examines euvolemic, making urine, no pulmonary edema at this point cannot have JOMAR due to renal failure already bradycardic, BP low normal so no room to start beta blockers - ISAIAS on CKD stage III: Cr up to 7.0, BUN 120, decreased urine output repeating BMP at 1600 to see if any improvement in BUN, K holding off on emergent HD for now since patient is clinically stable he would be open to HD catheter and dialysis if needed appreciate nephrology recommendations - Hyperkalemia: due to renal failure gave kayexalate 15mg and dextrose/insulin infusion repeat K at 1600 - Transaminitis: due to liver congestion from RV failure AST and ALT coming down, repeat tomorrow liver US unremarkable - Thrombocytopenia: likely from liver congestion, follow 60 minutes spent on this patient, over 50% spent talking with patient, family and coordinating care with specialists
[2017-05-25] MEDS ORDERED: ASPIRIN 81 MG ECTAB PO STA (16:36)
[2017-05-25 17:05] LABS: ALBUMIN 2.9 gm/dl (3.4-5.0); ALKALINE PHOSPHATASE 85 U/L (45-117); ALT/SGPT 1911 U/L (12-78); AST/SGOT 595 U/L (15-37); BLOOD UREA NITROGEN 121 mg/dl (7-18); CALCIUM 8.5 mg/dl (8.5-10.1); CARBON DIOXIDE 22 mmol/L (21-32); CKMB 35.1 ng/ml (0.5-3.6); CREATININE 6.93 mg/dl (0.60-1.40); GLUCOSE 116 mg/dl (70-99); PHOSPHORUS 4.5 mg/dl (2.5-4.9); POTASSIUM 4.7 mmol/L (3.5-5.1); SODIUM 136 mmol/L (136-145); TOTAL PROTEIN 7.3 gm/dl (6.4-8.2)
[2017-05-25 23:10] LABS: ALBUMIN 2.8 gm/dl (3.4-5.0); CALCIUM 8.3 mg/dl (8.5-10.1); CREATININE 6.34 mg/dl (0.60-1.40); PHOSPHORUS 4.2 mg/dl (2.5-4.9); POTASSIUM 4.9 mmol/L (3.5-5.1)
[2017-05-26] VITALS (9 sets, daily range): BP systolic 107–134; BP diastolic 62–76; PULSE 55–65; TEMP 36.4–36.7; O2SAT 92–94
[2017-05-26] MEDS: LEVOTHYROXINE 100 MCG TAB PO SCH (04:51)
[2017-05-26] MEDS: SODIUM CHLORIDE 0.9% 1000ML 1,000 ML IV SCH ×2 (04:52→23:16)
[2017-05-26 05:14] LABS: HEMATOCRIT 38.8 % (42-52); HEMOGLOBIN 13.8 g/dL (14.0-18.0); MEAN CELL VOLUME 96.5 fL (80-100); MEAN CORPUSCULAR HEMOGLOBIN 34.3 pg (25-34); MEAN CORPUSCULAR HGB CONC 35.6 g/dl (32-36); NUCLEATED RED BLOOD CELL ABS 0.06 K/uL (0-0); RED CELL DISTRIBUTION WIDTH CV 13.4 % (11.5-14.5); RED CELL DISTRIBUTION WIDTH SD 46.9 fL (36.4-46.3); WHITE BLOOD COUNT 7.91 K/uL (4.8-10.8)
[2017-05-26 05:15] LABS: BASO % 0.1 %; BASO ABS # 0.01 K/uL (0-0.2); EOS % 0.8 %; EOS ABS # 0.06 K/uL (0-0.5); IG# 0.04 K/uL (0.00-0.02); LYMPH % 10.5 %; LYMPH ABS # 0.83 K/uL (1.2-3.4); MEAN PLATELET VOLUME 10.3 fL (7.4-10.4); MONO % 13.5 %; MONO ABS # 1.07 K/uL (0.11-0.59); NEUT % 74.6 %; PLATELET COUNT 49 K/uL (130-400)
[2017-05-26 05:21] LABS: INR 1.3 (0.9-1.1); PTT PATIENT 30.8 SECONDS (21.0-31.0)
[2017-05-26 05:36] LABS: HEPATITIS A IGM TC 51813E NON-REACTIVE (NON-REACTIVE); HEPATITIS B CORE IGM TC51854R NON-REACTIVE (NON-REACTIVE)
[2017-05-26 05:46] LABS: ALBUMIN 2.8 gm/dl (3.4-5.0); CALCIUM 8.2 mg/dl (8.5-10.1); CREATININE 6.16 mg/dl (0.60-1.40); POTASSIUM 4.4 mmol/L (3.5-5.1); TOTAL PROTEIN 7.4 gm/dl (6.4-8.2)
--- NOTE | 2017-05-26 07:53 | DIAGNOSTIC IMAGING REPORT ---
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 These are stable. Unchanging bilateral reticular nodular changes. Trace pleural fluid left lateral gastric angle unchanged. IMPRESSION: No change from the prior study. No interval process. The above report was generated using voice recognition software. It may contain grammatical, syntax or spelling errors. Electronically signed by: Lawrence Gamble M.D. 05/26/2017 7:52 AM Dictated Date/Time: 05/26/2017 7:52 AM
[2017-05-26] MEDS: ASPIRIN 81 MG ECTAB PO SCH (08:49)
[2017-05-26] MEDS: RANITIDINE HCL 150 MG TAB PO SCH ×2 (08:49→21:18)
--- NOTE | 2017-05-26 13:21 | Critical Care Progress Note ---
Critical Care Progress Note Date of Service May 26, 2017. Attending Dr. Hercules Subjective Comfortable, up in chair Barriga draining well Objective General: NAD, elderly male Heent: NC/AT CVS: S1S2 regular Lungs: CTA b/l Abd: soft, non-tender Ext: no edema HUMAN RESOURCES ADMIN: heard of hearing, but otherwise AAO x 3, no focal deficits Assessment & Plan Acute WI Acute kidney injury Thrombocytopenia Plan: Troponin trending down. Echo reviewed, has poor EF, significant wall motion abnormalities. Cardiology evaluation noted. At this point the WI is established, no benefit from urgent revascularization. Starting ASA 81 mg. Decrease IV fluids to 50 ml/hr Monitor electrolytes closely. Treated for hyperkalemia, potassium remained normal Holding off HD for now, no urgent need. Encephalopathy resolved, no acidosis for now, no evidence of fluid overload. Hyperkalemia treated medically. Creatinine trending down Keep Barriga catheter, monitor urine output, borderline so far Platelets stabilized DVT prophylaxis: SCDs Critical care time spent with patient, family, reviewing the chart, discussing with consultants, greater than 25 minutes May be transferred to monitored floor Data Medications: Current Inpatient Medications Medications (Trade) Dose Ordered Sig/Sahil Route Start Time Stop Time Status Last Admin Dose Admin Levothyroxine Sodium (Synthroid Tab) 100 mcg DAILYBB PO 05/25/17 06:00 06/24/17 06:59 05/26/17 04:51 100 MCG Miscellaneous Information ([facility] Protocol For Hyperglycemia) 1 ea PRN PRN N/A 05/24/17 18:45 05/26/17 18:44 Ranitidine HCl (zANTac TAB) 150 mg BID PO 05/25/17 09:00 06/24/17 08:59 05/26/17 08:49 150 MG Miscellaneous Information ([facility] Protocol For Hyperglycemia) 1 ea PRN PRN N/A 05/24/17 23:15 05/26/17 23:14 Aspirin (Ecotrin Tab) 81 mg QAM PO 05/26/17 09:00 06/25/17 08:59 05/26/17 08:49 81 MG Sodium Chloride 1,000 ml @ 75 mls/hr [id number] IV 05/25/17 16:45 06/24/17 16:44 05/26/17 04:52 75 MLS/HR Vital Signs: Date Time Temp Pulse Resp B/P (MAP) Pulse Ox O2 Delivery O2 Flow Rate FiO2 05/26/17 12:00 Room Air 05/26/17 12:00 36.5 56 17 107/65 (79) 94 05/26/17 08:00 Room Air 05/26/17 08:00 36.6 64 19 134/76 (95) 93 05/26/17 06:00 55 19 113/62 (79) 92 05/26/17 05:00 59 27 132/73 (92) 94 05/26/17 04:00 94 Room Air 05/26/17 04:00 36.7 58 21 124/74 (91) 92 05/26/17 02:00 65 26 116/72 (87) 92 05/26/17 00:00 36.7 59 17 117/71 (86) 93 Room Air 05/25/17 23:59 94 Room Air 05/25/17 22:00 54 16 121/70 (87) 94 Room Air 05/25/17 20:00 36.8 55 18 112/66 (81) 93 Room Air 05/25/17 20:00 95 Room Air 05/25/17 18:00 58 20 111/67 (82) 93 Room Air 05/25/17 16:00 95 Room Air 05/25/17 16:00 36.6 59 17 119/73 (88) 95 Room Air 05/25/17 15:00 54 19 98/63 (75) 91 05/25/17 14:01 70 21 98/74 (82) 92 Room Air Laboratory Results: Last 24 Hours Test 05/25/17 15:57 05/25/17 16:13 05/25/17 20:43 05/25/17 21:51 Sodium Level 136 mmol/L 136 mmol/L Potassium Level 4.7 mmol/L 4.9 mmol/L Chloride Level 104 mmol/L 103 mmol/L Carbon Dioxide Level 22 mmol/L 20 mmol/L Anion Gap 10.0 mmol/L 13.0 mmol/L Blood Urea Nitrogen 121 mg/dl 124 mg/dl Creatinine 6.93 mg/dl 6.34 mg/dl Est Creatinine Clear Calc Drug Dose 6.3 ml/min 6.9 ml/min Estimated GFR () 7.4 8.3 Estimated GFR (Non- 6.4 7.1 BUN/Creatinine Ratio 17.8 19.6 Random Glucose 116 mg/dl 117 mg/dl Lactic Acid Level 1.6 mmol/L Calcium Level 8.5 mg/dl 8.3 mg/dl Phosphorus Level 4.5 mg/dl 4.2 mg/dl Magnesium Level 2.4 mg/dl 2.3 mg/dl Total Bilirubin 1.3 mg/dl 1.1 mg/dl Aspartate Amino Transf (AST/SGOT) 595 U/L 451 U/L Alanine Aminotransferase (ALT/SGPT) 1911 U/L 1685 U/L Alkaline Phosphatase 85 U/L 80 U/L Creatine Kinase MB 35.1 ng/ml Creatine Kinase MB Ratio Troponin I 28.600 ng/ml 25.200 ng/ml Total Protein 7.3 gm/dl 7.0 gm/dl Albumin 2.9 gm/dl 2.8 gm/dl Globulin 4.4 gm/dl 4.2 gm/dl Albumin/Globulin Ratio 0.7 0.7 Bedside Glucose 118 mg/dl 127 mg/dl Total Creatine Kinase 260 U/L Test 05/26/17 04:50 White Blood Count 7.91 K/uL Red Blood Count 4.02 M/uL Hemoglobin 13.8 g/dL Hematocrit 38.8 % Mean Corpuscular Volume 96.5 fL Mean Corpuscular Hemoglobin 34.3 pg Mean Corpuscular Hemoglobin Concent 35.6 g/dl Platelet Count 49 K/uL Mean Platelet Volume 10.3 fL Neutrophils (%) (Auto) 74.6 % Lymphocytes (%) (Auto) 10.5 % Monocytes (%) (Auto) 13.5 % Eosinophils (%) (Auto) 0.8 % Basophils (%) (Auto) 0.1 % Neutrophils # (Auto) 5.90 K/uL Lymphocytes # (Auto) 0.83 K/uL Monocytes # (Auto) 1.07 K/uL Eosinophils # (Auto) 0.06 K/uL Basophils # (Auto) 0.01 K/uL RDW Standard Deviation 46.9 fL RDW Coefficient of Variation 13.4 % Immature Granulocyte % (Auto) 0.5 % Immature Granulocyte # (Auto) 0.04 K/uL Nucleated RBC Absolute Count (auto) 0.06 K/uL Nucleated Red Blood Cells % 0.7 % Prothrombin Time 13.3 SECONDS Prothromb Time International Ratio 1.3 Activated Partial Thromboplast Time 30.8 SECONDS Partial Thromboplastin Ratio 1.2 Sodium Level 136 mmol/L Potassium Level 4.4 mmol/L Chloride Level 106 mmol/L Carbon Dioxide Level 20 mmol/L Anion Gap 10.0 mmol/L Blood Urea Nitrogen 112 mg/dl Creatinine 6.16 mg/dl Est Creatinine Clear Calc Drug Dose 7.1 ml/min Estimated GFR () 8.5 Estimated GFR (Non- 7.4 BUN/Creatinine Ratio 18.2 Random Glucose 108 mg/dl Calcium Level 8.2 mg/dl Total Bilirubin 1.3 mg/dl Direct Bilirubin 0.4 mg/dl Aspartate Amino Transf (AST/SGOT) 351 U/L Alanine Aminotransferase (ALT/SGPT) 1630 U/L Alkaline Phosphatase 82 U/L Total Protein 7.4 gm/dl Albumin 2.8 gm/dl Lipase 599 U/L
--- NOTE | 2017-05-26 13:29 | Nephrology Progress Note ---
Nephrology Progress Note Date of Service May 26, 2017. Chief Complaint Follow-up for acute kidney injury and hyperkalemia. Subjective Mr. Flores was seen and examined in his room this morning. With his family at bedside. Has been overall is feeling slightly better, denies shortness of breath or chest pain, continues to feel tired. Blood pressure has been stable. Renal function started to improve, urine output increased. Electrolyte abnormality improving. Review of Systems A complete review of systems was performed. Pertinent positives are noted above. All other systems are negative. Vital Signs Last 8 Hrs Date Time Temp Pulse Resp B/P (MAP) Pulse Ox O2 Delivery O2 Flow Rate FiO2 05/26/17 08:00 Room Air 05/26/17 08:00 36.6 64 19 134/76 (95) 93 05/26/17 06:00 55 19 113/62 (79) 92 05/26/17 05:00 59 27 132/73 (92) 94 05/26/17 04:00 94 Room Air 05/26/17 04:00 36.7 58 21 124/74 (91) 92 05/26/17 02:00 65 26 116/72 (87) 92 Last Recorded Weight Weight (Kilograms): 71.100 Physical Exam GENERAL: Elderly male, AAA x 3, pleasant, healthy-appearing, not in any distress. NECK: Supple, no JVD. RESPIRATORY: Normal breathing efforts, no accessory muscle use, clear to auscultation bilaterally, no wheezes or rales. CARDIOVASCULAR: S1, S2 normal, rate rhythm regular. EXTREMITY: No lower extremity edema NEURO: speech fluent. PSYCHIATRY: Normal mood and judgment Social History Smokeless Tobacco Use: No Alcohol Use: none Drug Use: none Marital Status: Occupation: retired Laboratory Results Past 24 Hours 05/26/17 04:50 Red Blood Count 4.02, Mean Corpuscular Volume 96.5, Mean Corpuscular Hemoglobin 34.3, Mean Corpuscular Hemoglobin Concent 35.6, Mean Platelet Volume 10.3, Neutrophils (%) (Auto) 74.6, Lymphocytes (%) (Auto) 10.5, Monocytes (%) (Auto) 13.5, Eosinophils (%) (Auto) 0.8, Basophils (%) (Auto) 0.1, Neutrophils # (Auto ) 5.90, Lymphocytes # (Auto) 0.83, Monocytes # (Auto) 1.07, Eosinophils # (Auto ) 0.06, Basophils # (Auto) 0.01 05/25/17 15:57 05/25/17 21:51 05/26/17 04:50 Test 05/25/17 15:57 05/25/17 16:13 05/25/17 20:43 05/25/17 21:51 Anion Gap 10.0 mmol/L (3-11) 13.0 mmol/L (3-11) Est Creatinine Clear Calc Drug Dose 6.3 ml/min 6.9 ml/min Estimated GFR () 7.4 8.3 Estimated GFR (Non- 6.4 7.1 BUN/Creatinine Ratio 17.8 (10-20) 19.6 (10-20) Lactic Acid Level 1.6 mmol/L (0.4-2.0) Calcium Level 8.5 mg/dl (8.5-10.1) 8.3 mg/dl (8.5-10.1) Phosphorus Level 4.5 mg/dl (2.5-4.9) 4.2 mg/dl (2.5-4.9) Magnesium Level 2.4 mg/dl (1.8-2.4) 2.3 mg/dl (1.8-2.4) Total Bilirubin 1.3 mg/dl (0.2-1) 1.1 mg/dl (0.2-1) Aspartate Amino Transf (AST/SGOT) 595 U/L (15-37) 451 U/L (15-37) Alanine Aminotransferase (ALT/SGPT) 1911 U/L (-78) 1685 U/L (-78) Alkaline Phosphatase 85 U/L (45-117) 80 U/L (45-117) Creatine Kinase MB 35.1 ng/ml (0.5-3.6) Creatine Kinase MB Ratio (0-3.0) Troponin I 28.600 ng/ml (0-0.045) 25.200 ng/ml (0-0.045) Total Protein 7.3 gm/dl (6.4-8.2) 7.0 gm/dl (6.4-8.2) Albumin 2.9 gm/dl (3.4-5.0) 2.8 gm/dl (3.4-5.0) Globulin 4.4 gm/dl (2.5-4.0) 4.2 gm/dl (2.5-4.0) Albumin/Globulin Ratio 0.7 (0.9-2) 0.7 (0.9-2) Bedside Glucose 118 mg/dl (70-99) 127 mg/dl (70-99) Total Creatine Kinase 260 U/L (39-308) Test 05/26/17 04:50 White Blood Count 7.91 K/uL (4.8-10.8) Red Blood Count 4.02 M/uL (4.7-6.1) Hemoglobin 13.8 g/dL (14.0-18.0) Hematocrit 38.8 % (42-52) Mean Corpuscular Volume 96.5 fL (80-100) Mean Corpuscular Hemoglobin 34.3 pg (25-34) Mean Corpuscular Hemoglobin Concent 35.6 g/dl (32-36) Platelet Count 49 K/uL (130-400) Mean Platelet Volume 10.3 fL (7.4-10.4) Neutrophils (%) (Auto) 74.6 % Lymphocytes (%) (Auto) 10.5 % Monocytes (%) (Auto) 13.5 % Eosinophils (%) (Auto) 0.8 % Basophils (%) (Auto) 0.1 % Neutrophils # (Auto) 5.90 K/uL (1.4-6.5) Lymphocytes # (Auto) 0.83 K/uL (1.2-3.4) Monocytes # (Auto) 1.07 K/uL (0.11-0.59) Eosinophils # (Auto) 0.06 K/uL (0-0.5) Basophils # (Auto) 0.01 K/uL (0-0.2) RDW Standard Deviation 46.9 fL (36.4-46.3) RDW Coefficient of Variation 13.4 % (11.5-14.5) Immature Granulocyte % (Auto) 0.5 % Immature Granulocyte # (Auto) 0.04 K/uL (0.00-0.02) Nucleated RBC Absolute Count (auto) 0.06 K/uL (0-0) Nucleated Red Blood Cells % 0.7 % Prothrombin Time 13.3 SECONDS (9.0-12.0) Prothromb Time International Ratio 1.3 (0.9-1.1) Activated Partial Thromboplast Time 30.8 SECONDS (21.0-31.0) Partial Thromboplastin Ratio 1.2 Anion Gap 10.0 mmol/L (3-11) Est Creatinine Clear Calc Drug Dose 7.1 ml/min Estimated GFR () 8.5 Estimated GFR (Non- 7.4 BUN/Creatinine Ratio 18.2 (10-20) Calcium Level 8.2 mg/dl (8.5-10.1) Total Bilirubin 1.3 mg/dl (0.2-1) Direct Bilirubin 0.4 mg/dl (0-0.2) Aspartate Amino Transf (AST/SGOT) 351 U/L (15-37) Alanine Aminotransferase (ALT/SGPT) 1630 U/L (12-78) Alkaline Phosphatase 82 U/L (45-117) Total Protein 7.4 gm/dl (6.4-8.2) Albumin 2.8 gm/dl (3.4-5.0) Lipase 599 U/L (73-393) Allergies Coded Allergies: Niacin (Verified Allergy, Mild, RASH, 05/24/17) Medications Current Inpatient Medications Medications (Trade) Dose Ordered Sig/Sahil Route Start Time Stop Time Status Last Admin Dose Admin Levothyroxine Sodium (Synthroid Tab) 100 mcg DAILYBB PO 05/25/17 06:00 06/24/17 06:59 05/26/17 04:51 100 MCG Miscellaneous Information ([facility] Protocol For Hyperglycemia) 1 ea PRN PRN N/A 05/24/17 18:45 05/26/17 18:44 Ranitidine HCl (zANTac TAB) 150 mg BID PO 05/25/17 09:00 06/24/17 08:59 05/26/17 08:49 150 MG Miscellaneous Information ([facility] Protocol For Hyperglycemia) 1 ea PRN PRN N/A 05/24/17 23:15 05/26/17 23:14 Aspirin (Ecotrin Tab) 81 mg QAM PO 05/26/17 09:00 06/25/17 08:59 05/26/17 08:49 81 MG Sodium Chloride 1,000 ml @ 75 mls/hr [id number] IV 05/25/17 16:45 06/24/17 16:44 05/26/17 04:52 75 MLS/HR Impression (1) Acute renal failure (2) Transaminitis (3) Hypertension (4) Proteinuria (5) Thrombocytopenia (6) Elevated troponin (7) NSTEMI (non-ST elevated myocardial infarction) 89-year-old gentlemen with acute kidney injury, transaminitis and elevated troponin. Acute kidney injury, had baseline mild CKD, baseline creatinine has been 1.3-1.4, admission creatinine 7.5 BUN 125 with significant electrolyte abnormalities including hyperkalemia and metabolic acidosis without much improvement with IV hydration. CT abdomen pelvis without contrast state no postrenal obstruction, urinalysis with low grade proteinuria and hematuria. Unclear etiology for acute kidney injury, no postrenal obstruction, however cannot exclude any possibility for intrinsic renal disease or dense ATN. Overnight patient's treated IV hydration, there is no significant improvement renal function, in fact electrolyte abnormality continues to worsen, urine output has been low around 200 mL since admission. Currently blood pressure running high however no respiratory distress volume status seems to be acceptable. Renal function started to improve, slowly, electrolyte abnormality resolved, urine output has been improving. Recommendations --renal function slightly improved with increase in urine output, electrolyte abnormality improving. Overall clinically seems to be improving with stable vital sign --continue to monitor renal function closely, no indication for urgent dialysis at this point --monitor intake and output --hold nephrotoxic medications Will follow
--- NOTE | 2017-05-26 13:40 | CARDIOLOGY PROGRESS NOTE ---
DATE: 05/26/2017 SUBJECTIVE: Mr. Rae is resting comfortably in bed without complaints of chest pain, dyspnea, or palpitations. He is anxious for hospital discharge. OBJECTIVE: VITAL SIGNS: Blood pressure is 107/65 with a regular pulse of 56. Respiratory rate is 18. The patient is afebrile at 36.5 degrees Celsius. Saturation is 94% on room air. NECK: Supple with full carotid upstrokes. No obvious bruits. Jugular venous pressure is flat at 90 degrees. There is no thyromegaly. CARDIOVASCULAR: Reveals a regular rhythm with a 2/6 apical holosystolic murmur. No S3. LUNGS: Note decreased breath sounds at the bases but no rales. ABDOMEN: Soft without bruits. EXTREMITIES: Reveal no edema. DATA: CBC notes hemoglobin of 13.8, hematocrit 38.8, white count 7.9, and platelet count 49,000. Electrolytes note a sodium of 136, potassium 4.4, chloride 106, bicarbonate 20, BUN 112, creatinine 6.1, and glucose 108. AST is down to 351 with an ALT down to 1630. Troponin I level down to 25.2. equipment monitor phototypesetting is benign. IMPRESSION AND PLAN: 1. Acute inferior wall infarction with right ventricular involvement -- patient continues to improve clinically. Troponin I level peaked at 196 with a CKP at 660. Continue with medical management for now. The patient remains off Plavix due to his thrombocytopenia. 2. Left ventricular dysfunction -- ejection fraction of 30-35% with an inferior wall motion abnormality. 3. Acute renal insufficiency -- creatinine continues to improve. 4. Acute hepatic insufficiency -- liver transaminases improving. 5. Thrombocytopenia -- stable. Limits the use of Plavix. 6. Hypercholesterolemia. 7. Hypothyroidism. MTDD
--- NOTE | 2017-05-26 14:20 | Progress Note ---
Subjective Date of Service: May 26, 2017. Subjective Pt evaluation today including: conversation w/ patient, conversation w/ family , physical exam, lab review, conversation w/ human capital consultant, review of inpatient medication list Pain: no pain PO Intake: adequate Voiding: abbasi catheter in place patient feeling well, sitting up in chair, eating breakfast no chest pain, no dyspnea reviewed labs, Cr down to 6.1, K is stable, AST and ALT trending down discussed with Dr Hercules, Dr. Mcmillan and Dr. Merrill Problem List Medical Problems: (1) Acute renal failure Status: Acute (2) Elevated troponin Status: Acute (3) Hearing loss Status: Chronic (4) Liver failure Status: Acute (5) NSTEMI (non-ST elevated myocardial infarction) Status: Acute (6) Thrombocytopenia Status: Acute (7) Transaminitis Status: Acute Review of Systems Constitutional: + weakness All Other Systems: Reviewed and Negative Medications Current Inpatient Medications Medications (Trade) Dose Ordered Sig/Sahil Route Start Time Stop Time Status Last Admin Dose Admin Levothyroxine Sodium (Synthroid Tab) 100 mcg DAILYBB PO 05/25/17 06:00 06/24/17 06:59 05/26/17 04:51 100 MCG Miscellaneous Information ([facility] Protocol For Hyperglycemia) 1 ea PRN PRN N/A 05/24/17 18:45 05/26/17 18:44 Ranitidine HCl (zANTac TAB) 150 mg BID PO 05/25/17 09:00 06/24/17 08:59 05/26/17 08:49 150 MG Miscellaneous Information ([facility] Protocol For Hyperglycemia) 1 ea PRN PRN N/A 05/24/17 23:15 05/26/17 23:14 Aspirin (Ecotrin Tab) 81 mg QAM PO 05/26/17 09:00 06/25/17 08:59 05/26/17 08:49 81 MG Sodium Chloride 1,000 ml @ 50 mls/hr Q20H IV 05/25/17 16:45 06/24/17 16:44 05/26/17 04:52 75 MLS/HR Objective Vital Signs Date Time Temp Pulse Resp B/P (MAP) Pulse Ox O2 Delivery O2 Flow Rate FiO2 05/26/17 12:00 Room Air 05/26/17 12:00 36.5 56 17 107/65 (79) 94 05/26/17 08:00 Room Air 05/26/17 08:00 36.6 64 19 134/76 (95) 93 05/26/17 06:00 55 19 113/62 (79) 92 05/26/17 05:00 59 27 132/73 (92) 94 05/26/17 04:00 94 Room Air 05/26/17 04:00 36.7 58 21 124/74 (91) 92 05/26/17 02:00 65 26 116/72 (87) 92 05/26/17 00:00 36.7 59 17 117/71 (86) 93 Room Air 05/25/17 23:59 94 Room Air 05/25/17 22:00 54 16 121/70 (87) 94 Room Air 05/25/17 20:00 36.8 55 18 112/66 (81) 93 Room Air 05/25/17 20:00 95 Room Air 05/25/17 18:00 58 20 111/67 (82) 93 Room Air 05/25/17 16:00 95 Room Air 05/25/17 16:00 36.6 59 17 119/73 (88) 95 Room Air 05/25/17 15:00 54 19 98/63 (75) 91 Physical Exam General Appearance: WD/WN, no apparent distress Eyes: normal inspection, EOMI, sclerae normal Neck: supple, no adenopathy, no JVD, trachea midline Respiratory/Chest: chest non-tender, lungs clear, normal breath sounds, no respiratory distress, no accessory muscle use Cardiovascular: regular rate, rhythm, no edema, no gallop, no JVD, no murmur Abdomen: normal bowel sounds, non tender, soft, no organomegaly Extremities: normal range of motion, non-tender, normal inspection, no pedal edema, no calf tenderness, pelvis stable Neurologic/Psychiatric: flavorer II-XII nml as tested, no motor/sensory deficits, alert, normal mood/affect, oriented x 3 Skin: normal color, warm/dry, no rash Laboratory Results Last 24 Hours Test 05/25/17 15:57 05/25/17 16:13 05/25/17 20:43 05/25/17 21:51 Sodium Level 136 mmol/L 136 mmol/L Potassium Level 4.7 mmol/L 4.9 mmol/L Chloride Level 104 mmol/L 103 mmol/L Carbon Dioxide Level 22 mmol/L 20 mmol/L Anion Gap 10.0 mmol/L 13.0 mmol/L Blood Urea Nitrogen 121 mg/dl 124 mg/dl Creatinine 6.93 mg/dl 6.34 mg/dl Est Creatinine Clear Calc Drug Dose 6.3 ml/min 6.9 ml/min Estimated GFR () 7.4 8.3 Estimated GFR (Non- 6.4 7.1 BUN/Creatinine Ratio 17.8 19.6 Random Glucose 116 mg/dl 117 mg/dl Lactic Acid Level 1.6 mmol/L Calcium Level 8.5 mg/dl 8.3 mg/dl Phosphorus Level 4.5 mg/dl 4.2 mg/dl Magnesium Level 2.4 mg/dl 2.3 mg/dl Total Bilirubin 1.3 mg/dl 1.1 mg/dl Aspartate Amino Transf (AST/SGOT) 595 U/L 451 U/L Alanine Aminotransferase (ALT/SGPT) 1911 U/L 1685 U/L Alkaline Phosphatase 85 U/L 80 U/L Creatine Kinase MB 35.1 ng/ml Creatine Kinase MB Ratio Troponin I 28.600 ng/ml 25.200 ng/ml Total Protein 7.3 gm/dl 7.0 gm/dl Albumin 2.9 gm/dl 2.8 gm/dl Globulin 4.4 gm/dl 4.2 gm/dl Albumin/Globulin Ratio 0.7 0.7 Bedside Glucose 118 mg/dl 127 mg/dl Total Creatine Kinase 260 U/L Test 05/26/17 04:50 White Blood Count 7.91 K/uL Red Blood Count 4.02 M/uL Hemoglobin 13.8 g/dL Hematocrit 38.8 % Mean Corpuscular Volume 96.5 fL Mean Corpuscular Hemoglobin 34.3 pg Mean Corpuscular Hemoglobin Concent 35.6 g/dl Platelet Count 49 K/uL Mean Platelet Volume 10.3 fL Neutrophils (%) (Auto) 74.6 % Lymphocytes (%) (Auto) 10.5 % Monocytes (%) (Auto) 13.5 % Eosinophils (%) (Auto) 0.8 % Basophils (%) (Auto) 0.1 % Neutrophils # (Auto) 5.90 K/uL Lymphocytes # (Auto) 0.83 K/uL Monocytes # (Auto) 1.07 K/uL Eosinophils # (Auto) 0.06 K/uL Basophils # (Auto) 0.01 K/uL RDW Standard Deviation 46.9 fL RDW Coefficient of Variation 13.4 % Immature Granulocyte % (Auto) 0.5 % Immature Granulocyte # (Auto) 0.04 K/uL Nucleated RBC Absolute Count (auto) 0.06 K/uL Nucleated Red Blood Cells % 0.7 % Prothrombin Time 13.3 SECONDS Prothromb Time International Ratio 1.3 Activated Partial Thromboplast Time 30.8 SECONDS Partial Thromboplastin Ratio 1.2 Sodium Level 136 mmol/L Potassium Level 4.4 mmol/L Chloride Level 106 mmol/L Carbon Dioxide Level 20 mmol/L Anion Gap 10.0 mmol/L Blood Urea Nitrogen 112 mg/dl Creatinine 6.16 mg/dl Est Creatinine Clear Calc Drug Dose 7.1 ml/min Estimated GFR () 8.5 Estimated GFR (Non- 7.4 BUN/Creatinine Ratio 18.2 Random Glucose 108 mg/dl Calcium Level 8.2 mg/dl Total Bilirubin 1.3 mg/dl Direct Bilirubin 0.4 mg/dl Aspartate Amino Transf (AST/SGOT) 351 U/L Alanine Aminotransferase (ALT/SGPT) 1630 U/L Alkaline Phosphatase 82 U/L Total Protein 7.4 gm/dl Albumin 2.8 gm/dl Lipase 599 U/L Assessment and Plan 89 y/o M who until recently has been relatively healthy and independent. 10 days ago he developed a flu-like illness. He was generally weak but was not able to describe any specific symptoms. One day prior he visited his primary care clinic. He was sent home after labs and a CXR were obtained. The pt was then called back and told to attend the hospital due to highly abnormal labs. His lab results are in fact catastrophic. The pts troponin is 196 with only questionable inferior EKG changes. His creatinine is 7.2 and his ALT is > 3500. Labs obtained 11/27 were relatively normal aside from a creatinine of 1.4. The pt is remarkably asymptomatic and has no specific complaints. He denies chest or abdominal pain, denies SOB, cough, diarrhea, dysuria, oliguria or fevers. His CXR is suspicious for congestion without definitive pathology. A CT abdomen was not consistent with cirrhosis or renal outlet obstruction. - Recent [place], posterior and inferior, RV involved: aspirin, hold on Plavix due to thrombocytopenia no chest pain or pressure, troponin down to 25 - Acute systolic and RV heart failure: continue to examines euvolemic, making urine, no pulmonary edema at this point cannot have JOMAR due to renal failure already bradycardic, BP low normal so no room to start beta blockers - ISAIAS on CKD stage III: Cr up to 7.0, BUN 120, decreased urine output at time of admission Cr down to 6.1 today, making more urine no need for urgent HD today he would be open to HD catheter and dialysis if needed appreciate nephrology recommendations - Hyperkalemia: due to renal failure gave kayexalate 15mg and dextrose/insulin infusion yesterday K is 4.4 today - Transaminitis: due to liver congestion from RV failure AST and ALT coming down, repeat tomorrow liver US unremarkable - Thrombocytopenia: likely from liver congestion, follow will transfer out of the ICU today
[2017-05-27 00:11] VITALS: BP 113/64; PULSE 62; TEMP 36.7; O2SAT 93
[2017-05-27 03:55] VITALS: BP 115/63; PULSE 63; TEMP 36.5; O2SAT 91
[2017-05-27] MEDS: LEVOTHYROXINE 100 MCG TAB PO SCH (06:08)
[2017-05-27 06:23] LABS: HEMATOCRIT 34.4 % (42-52); HEMOGLOBIN 12.2 g/dL (14.0-18.0); MEAN CELL VOLUME 96.4 fL (80-100); MEAN CORPUSCULAR HEMOGLOBIN 34.2 pg (25-34); MEAN CORPUSCULAR HGB CONC 35.5 g/dl (32-36); RED CELL DISTRIBUTION WIDTH CV 13.4 % (11.5-14.5); RED CELL DISTRIBUTION WIDTH SD 47.1 fL (36.4-46.3); WHITE BLOOD COUNT 6.23 K/uL (4.8-10.8)
[2017-05-27 06:36] LABS: MEAN PLATELET VOLUME 11.6 fL (7.4-10.4); PLATELET COUNT 50 K/uL (130-400)
[2017-05-27 06:39] LABS: INR 1.2 (0.9-1.1)
[2017-05-27 06:51] LABS: EOS % 1.9 %; EOS ABS # 0.12 K/uL (0-0.5); IG# 0.06 K/uL (0.00-0.02); LYMPH % 13.2 %; LYMPH ABS # 0.82 K/uL (1.2-3.4); MONO % 15.7 %; MONO ABS # 0.98 K/uL (0.11-0.59); NEUT % 68.2 %; NEUT ABS # 4.25 K/uL (1.4-6.5)
[2017-05-27 07:00] VITALS: BP 121/78; PULSE 61; TEMP 36.7; O2SAT 96
[2017-05-27 07:00] LABS: ALBUMIN 2.5 gm/dl (3.4-5.0); CREATININE 4.59 mg/dl (0.60-1.40); POTASSIUM 4.4 mmol/L (3.5-5.1); TOTAL PROTEIN 6.5 gm/dl (6.4-8.2)
[2017-05-27] MEDS: RANITIDINE HCL 150 MG TAB PO SCH ×2 (09:14→20:00)
[2017-05-27] MEDS: ASPIRIN 81 MG ECTAB PO SCH (09:14)
--- NOTE | 2017-05-27 10:41 | Progress Note ---
Subjective Date of Service: May 27, 2017. Subjective Pt evaluation today including: conversation w/ patient, conversation w/ family , physical exam, lab review, review of inpatient medication list Pain: no chest pain PO Intake: adequate Voiding: abbasi catheter in place patient doing remarkably well, making more urine labs reviewed, Cr improved to 4.59 eating well, ambulating well Problem List Medical Problems: (1) Acute renal failure Status: Acute (2) Elevated troponin Status: Acute (3) Hearing loss Status: Chronic (4) Liver failure Status: Acute (5) NSTEMI (non-ST elevated myocardial infarction) Status: Acute (6) Thrombocytopenia Status: Acute (7) Transaminitis Status: Acute Review of Systems Constitutional: + weakness, + fatigue Neurologic: + weakness All Other Systems: Reviewed and Negative Medications Current Inpatient Medications Medications (Trade) Dose Ordered Sig/Sahil Route Start Time Stop Time Status Last Admin Dose Admin Levothyroxine Sodium (Synthroid Tab) 100 mcg DAILYBB PO 05/25/17 06:00 06/24/17 06:59 05/27/17 06:08 100 MCG Ranitidine HCl (zANTac TAB) 150 mg BID PO 05/25/17 09:00 06/24/17 08:59 05/27/17 09:14 150 MG Aspirin (Ecotrin Tab) 81 mg QAM PO 05/26/17 09:00 06/25/17 08:59 05/27/17 09:14 81 MG Sodium Chloride 1,000 ml @ 50 mls/hr Q20H IV 05/25/17 16:45 06/24/17 16:44 05/26/17 23:16 50 MLS/HR Objective Vital Signs Date Time Temp Pulse Resp B/P (MAP) Pulse Ox O2 Delivery O2 Flow Rate FiO2 05/27/17 07:00 36.7 61 24 121/78 (92) 96 Room Air 05/27/17 04:00 Room Air 05/27/17 03:55 36.5 63 21 115/63 (80) 91 Room Air 05/27/17 00:11 36.7 62 20 113/64 (80) 93 Room Air 05/27/17 00:05 Room Air 05/26/17 20:00 Room Air 05/26/17 19:30 36.5 56 20 113/69 (84) 92 Room Air 1/13/18 16:12 36.4 62 22 115/74 (88) 93 Room Air 05/26/17 16:00 Room Air 05/26/17 12:00 Room Air 05/26/17 12:00 36.5 56 17 107/65 (79) 94 Physical Exam General Appearance: WD/WN, no apparent distress Eyes: normal inspection, EOMI, sclerae normal ENT: normal ENT inspection, hearing grossly normal, pharynx normal Neck: supple, no adenopathy, no JVD, trachea midline Respiratory/Chest: chest non-tender, lungs clear, normal breath sounds, no respiratory distress, no accessory muscle use Cardiovascular: regular rate, rhythm, no edema, no gallop, no JVD, no murmur Abdomen: normal bowel sounds, non tender, soft, no organomegaly Extremities: normal range of motion, non-tender, normal inspection, no pedal edema, no calf tenderness Neurologic/Psychiatric: dragger II-XII nml as tested, no motor/sensory deficits, alert, normal mood/affect, oriented x 3 Skin: normal color, warm/dry, no rash Lymphatic: no adenopathy Laboratory Results Last 24 Hours Test 05/27/17 05:14 White Blood Count 6.23 K/uL Red Blood Count 3.57 M/uL Hemoglobin 12.2 g/dL Hematocrit 34.4 % Mean Corpuscular Volume 96.4 fL Mean Corpuscular Hemoglobin 34.2 pg Mean Corpuscular Hemoglobin Concent 35.5 g/dl Platelet Count 50 K/uL Mean Platelet Volume 11.6 fL Neutrophils (%) (Auto) 68.2 % Lymphocytes (%) (Auto) 13.2 % Monocytes (%) (Auto) 15.7 % Eosinophils (%) (Auto) 1.9 % Basophils (%) (Auto) 0.0 % Neutrophils # (Auto) 4.25 K/uL Lymphocytes # (Auto) 0.82 K/uL Monocytes # (Auto) 0.98 K/uL Eosinophils # (Auto) 0.12 K/uL Basophils # (Auto) 0.00 K/uL RDW Standard Deviation 47.1 fL RDW Coefficient of Variation 13.4 % Immature Granulocyte % (Auto) 1.0 % Immature Granulocyte # (Auto) 0.06 K/uL Prothrombin Time 12.8 SECONDS Prothromb Time International Ratio 1.2 Activated Partial Thromboplast Time 32.0 SECONDS Partial Thromboplastin Ratio 1.2 Sodium Level 139 mmol/L Potassium Level 4.4 mmol/L Chloride Level 108 mmol/L Carbon Dioxide Level 22 mmol/L Anion Gap 9.0 mmol/L Blood Urea Nitrogen 98 mg/dl Creatinine 4.59 mg/dl Est Creatinine Clear Calc Drug Dose 10.4 ml/min Estimated GFR () 12.2 Estimated GFR (Non- 10.5 BUN/Creatinine Ratio 21.3 Random Glucose 146 mg/dl Calcium Level 8.0 mg/dl Total Bilirubin 1.0 mg/dl Direct Bilirubin 0.3 mg/dl Aspartate Amino Transf (AST/SGOT) 120 U/L Alanine Aminotransferase (ALT/SGPT) 856 U/L Alkaline Phosphatase 73 U/L Total Protein 6.5 gm/dl Albumin 2.5 gm/dl Lipase 874 U/L Assessment and Plan 89 y/o M who until recently has been relatively healthy and independent. 10 days ago he developed a flu-like illness. He was generally weak but was not able to describe any specific symptoms. One day prior he visited his primary care clinic. He was sent home after labs and a CXR were obtained. The pt was then called back and told to attend the hospital due to highly abnormal labs. His lab results are in fact catastrophic. The pts troponin is 196 with only questionable inferior EKG changes. His creatinine is 7.2 and his ALT is > 3500. Labs obtained 11/27 were relatively normal aside from a creatinine of 1.4. The pt is remarkably asymptomatic and has no specific complaints. He denies chest or abdominal pain, denies SOB, cough, diarrhea, dysuria, oliguria or fevers. His CXR is suspicious for congestion without definitive pathology. A CT abdomen was not consistent with cirrhosis or renal outlet obstruction. - Recent [place], posterior and inferior, RV involved: aspirin, hold on Plavix due to thrombocytopenia (platelets at 50 today) no chest pain or pressure, troponin down to 25 yesterday, no need to follow further - Acute systolic and RV heart failure: continue to examines euvolemic, self diuresing, no pulmonary edema at this point cannot have JOMAR due to renal failure already bradycardic, BP low normal so no room to start beta blockers cardiology following - ISAIAS on CKD stage III: Cr up to 7.0, BUN 120, decreased urine output at time of admission Cr down to 4.59 today, self diuresing appreciate nephrology recommendations, no need for HD - Hyperkalemia: due to renal failure gave kayexalate 15mg and dextrose/insulin infusion yesterday K is 4.4 again today - Transaminitis: due to liver congestion from RV failure AST 120 and ALT 856 today liver US unremarkable - Thrombocytopenia: likely from liver congestion, follow daily, 50 today will transfer to medical floor today PT/OT consults to evaluate for rehab of note, his is admitted for syncope, she is going to [facility] family is looking into personal care for the both of them
--- NOTE | 2017-05-27 11:29 | Nephrology Progress Note ---
Nephrology Progress Note Date of Service May 27, 2017. Chief Complaint Follow-up for acute kidney injury and hyperkalemia. Subjective Mr. Flores was seen and examined in his room this morning. Has been overall is feeling slightly better, denies shortness of breath or chest pain, continues to feel tired. Blood pressure has been stable. Renal function continues to improve, cr 4.6, urine output increased. Electrolyte acceptable. Review of Systems A complete review of systems was performed. Pertinent positives are noted above. All other systems are negative. Vital Signs Last 8 Hrs Date Time Temp Pulse Resp B/P (MAP) Pulse Ox O2 Delivery O2 Flow Rate FiO2 05/27/17 07:00 36.7 61 24 121/78 (92) 96 Room Air 05/27/17 04:00 Room Air 05/27/17 03:55 36.5 63 21 115/63 (80) 91 Room Air Last Recorded Weight Weight (Kilograms): 76.200 Physical Exam GENERAL: Elderly male, AAA x 3, pleasant, not in any distress. NECK: Supple, no JVD. RESPIRATORY: Normal breathing efforts, no accessory muscle use, clear to auscultation bilaterally, no wheezes or rales. CARDIOVASCULAR: S1, S2 normal, rate rhythm regular. EXTREMITY: No lower extremity edema NEURO: speech fluent. PSYCHIATRY: Normal mood and judgment Social History Smokeless Tobacco Use: No Alcohol Use: none Drug Use: none Marital Status: Occupation: retired Laboratory Results Past 24 Hours 05/27/17 05:14 Red Blood Count 3.57, Mean Corpuscular Volume 96.4, Mean Corpuscular Hemoglobin 34.2, Mean Corpuscular Hemoglobin Concent 35.5, Mean Platelet Volume 11.6, Neutrophils (%) (Auto) 68.2, Lymphocytes (%) (Auto) 13.2, Monocytes (%) (Auto) 15.7, Eosinophils (%) (Auto) 1.9, Basophils (%) (Auto) 0.0, Neutrophils # (Auto ) 4.25, Lymphocytes # (Auto) 0.82, Monocytes # (Auto) 0.98, Eosinophils # (Auto ) 0.12, Basophils # (Auto) 0.00 05/27/17 05:14 Test 05/27/17 05:14 White Blood Count 6.23 K/uL (4.8-10.8) Red Blood Count 3.57 M/uL (4.7-6.1) Hemoglobin 12.2 g/dL (14.0-18.0) Hematocrit 34.4 % (42-52) Mean Corpuscular Volume 96.4 fL (80-100) Mean Corpuscular Hemoglobin 34.2 pg (25-34) Mean Corpuscular Hemoglobin Concent 35.5 g/dl (32-36) Platelet Count 50 K/uL (130-400) Mean Platelet Volume 11.6 fL (7.4-10.4) Neutrophils (%) (Auto) 68.2 % Lymphocytes (%) (Auto) 13.2 % Monocytes (%) (Auto) 15.7 % Eosinophils (%) (Auto) 1.9 % Basophils (%) (Auto) 0.0 % Neutrophils # (Auto) 4.25 K/uL (1.4-6.5) Lymphocytes # (Auto) 0.82 K/uL (1.2-3.4) Monocytes # (Auto) 0.98 K/uL (0.11-0.59) Eosinophils # (Auto) 0.12 K/uL (0-0.5) Basophils # (Auto) 0.00 K/uL (0-0.2) RDW Standard Deviation 47.1 fL (36.4-46.3) RDW Coefficient of Variation 13.4 % (11.5-14.5) Immature Granulocyte % (Auto) 1.0 % Immature Granulocyte # (Auto) 0.06 K/uL (0.00-0.02) Prothrombin Time 12.8 SECONDS (9.0-12.0) Prothromb Time International Ratio 1.2 (0.9-1.1) Activated Partial Thromboplast Time 32.0 SECONDS (21.0-31.0) Partial Thromboplastin Ratio 1.2 Anion Gap 9.0 mmol/L (3-11) Est Creatinine Clear Calc Drug Dose 10.4 ml/min Estimated GFR () 12.2 Estimated GFR (Non- 10.5 BUN/Creatinine Ratio 21.3 (10-20) Calcium Level 8.0 mg/dl (8.5-10.1) Total Bilirubin 1.0 mg/dl (0.2-1) Direct Bilirubin 0.3 mg/dl (0-0.2) Aspartate Amino Transf (AST/SGOT) 120 U/L (15-37) Alanine Aminotransferase (ALT/SGPT) 856 U/L (12-78) Alkaline Phosphatase 73 U/L (45-117) Total Protein 6.5 gm/dl (6.4-8.2) Albumin 2.5 gm/dl (3.4-5.0) Lipase 874 U/L (73-393) Allergies Coded Allergies: Niacin (Verified Allergy, Mild, RASH, 05/24/17) Medications Current Inpatient Medications Medications (Trade) Dose Ordered Sig/Sahil Route Start Time Stop Time Status Last Admin Dose Admin Levothyroxine Sodium (Synthroid Tab) 100 mcg DAILYBB PO 05/25/17 06:00 06/24/17 06:59 05/27/17 06:08 100 MCG Ranitidine HCl (zANTac TAB) 150 mg BID PO 05/25/17 09:00 06/24/17 08:59 05/27/17 09:14 150 MG Aspirin (Ecotrin Tab) 81 mg QAM PO 05/26/17 09:00 06/25/17 08:59 05/27/17 09:14 81 MG Sodium Chloride 1,000 ml @ 50 mls/hr Q20H IV 05/25/17 16:45 06/24/17 16:44 05/26/17 23:16 50 MLS/HR Impression (1) Acute renal failure (2) Transaminitis (3) Hypertension (4) Proteinuria (5) Thrombocytopenia (6) Elevated troponin (7) NSTEMI (non-ST elevated myocardial infarction) 89-year-old gentlemen admitted with acute kidney injury, transaminitis and elevated troponin. Acute kidney injury, had baseline mild CKD, baseline creatinine has been 1.3-1.4, admission creatinine 7.5 BUN 125 with significant electrolyte abnormalities including hyperkalemia and metabolic acidosis without much improvement with IV hydration. CT abdomen pelvis without contrast state no postrenal obstruction, urinalysis with low grade proteinuria and hematuria. Acute kidney injury and elevated transaminitis was most likely secondary to massive DC. Clinically improved significantly with improved hemodynamics. Renal function started to improve creatinine improved to 4.6, has been having decent urine output, electrolyte abnormality resolved. Blood pressure has been well controlled. Recommendations --renal function continues to improve with increase in urine output, electrolyte abnormality improving. Overall clinically seems to be improving with stable vital sign --continue to monitor renal function closely, hopefully renal function will continue to improve as clinically otherwise doing well --suggest stopping IV fluid as patient's p.o. intake seems to be adequate, blood pressure has been stable. --monitor intake and output --hold nephrotoxic medications Will follow
[2017-05-27 11:31] VITALS: BP 121/78; PULSE 61; TEMP 36.7; O2SAT 96
[2017-05-27 12:35] VITALS: BP 127/71; PULSE 75; TEMP 36.7; O2SAT 96
--- NOTE | 2017-05-27 13:38 | CARDIOLOGY PROGRESS NOTE ---
DATE: 05/27/2017 SUBJECTIVE: Mr. Rae is resting comfortably in bed without complaints of chest pain or dyspnea. OBJECTIVE: VITAL SIGNS: Blood pressure 120/78 with a regular pulse of 60. Respiratory rate is 20. The patient is afebrile at 36.7 degrees Celsius. Saturations 96% on room air. NECK: Supple with full carotid upstrokes. There are no obvious bruits. Jugular venous pressure is flat at 90 degrees. There is no thyromegaly. CARDIOVASCULAR: Reveals a regular rhythm with a 2/6 apical holosystolic murmur. No S3. LUNGS: Clear without rales, rhonchi, or wheezes. ABDOMEN: Soft without bruits. EXTREMITIES: Reveal intact radial artery pulses bilaterally. There is no peripheral edema. DATA: CBC notes hemoglobin of 12.2, hematocrit 34.4, white count 6.2, and platelet count 50,000. Electrolytes note a sodium of 139, potassium 4.4, chloride 108, bicarb 22, BUN 19, creatinine 4.59, glucose 146. AST is down to 120 with an ALT down to 856. school bus monitor shows benign. MEDICATIONS: 1. Aspirin 81 mg per day. 2. Zantac 150 mg b.i.d. 3. Synthroid 0.1 mg daily. IMPRESSION AND PLAN: 1. Acute inferior wall myocardial infarction with right ventricular involvement -- patient continues to improve clinically. Could consider initiation of low dose metoprolol succinate. Lisinopril or losartan on hold due to renal insufficiency. 2. Left ventricular dysfunction -- ejection fraction 30-35% with an inferior wall motion abnormality. 3. Acute renal insufficiency -- improving. 4. Acute hepatic - improving. 5. Thrombocytopenia -- stable. Limit use of Plavix. 6. Hypercholesterolemia. 7. Hypothyroidism.
[2017-05-27 14:55] VITALS: BP 123/75; PULSE 67; TEMP 36.8; O2SAT 95
--- NOTE | 2017-05-27 21:03 | Progress Note ---
Post ICU Progress Note Date & Time May 27, 2017 at 20:59 Vital Signs Vital Signs Past 12 Hours Date Time Temp Pulse Resp B/P (MAP) Pulse Ox O2 Delivery O2 Flow Rate FiO2 05/27/17 16:00 Room Air 05/27/17 14:55 36.8 67 18 123/75 (91) 95 Room Air 05/27/17 12:35 36.7 75 22 127/71 (89) 96 Room Air 05/27/17 11:31 36.7 61 24 96 Notes Mental Status: alert / awake Nausea / Vomiting: adequately controlled Pain: adequately controlled Airway Patency, RR, SpO2: stable & adequate BP & HR: stable & adequate Patient is a pleasant 89-year-old male initially admitted for likely myocardial infarction that occurred several days prior to hospitalization. Subsequently, the patient developed acute renal failure, shock liver, and had an associated thrombocytopenia. Remarkably, the patient's clinical course has improved with IV fluids alone. The patient is not a great candidate for intervention at this point. Medical management seems to be the best option at this juncture. On evaluation today, the patient is resting comfortably. He reports that he feels much better at this point. He is sharing a room with his who recently had a syncopal episode and was hospitalized. They are hopeful to be discharged soon to a rehabilitation facility where they may stay together. He offers no complaints at this time. Consider outpatient follow up in 1 to 2 weeks with: Cardiology, Nephrology Repeat imaging needed: Per admitting team. Follow up cultures: None Reviewed progress notes, labs, and inpatient medication list Continue current management Additional recommendations: None at this time. Thank you for allowing us to participate in the care of this patient. At this time, Critical Care Services will sign off on this patient. Please feel free to reconsult as needed.
[2017-05-28 00:10] VITALS: BP 125/74; PULSE 65; TEMP 36.9; O2SAT 94
[2017-05-28] MEDS: LEVOTHYROXINE 100 MCG TAB PO SCH (05:39)
[2017-05-28 07:03] VITALS: BP 115/71; PULSE 65; TEMP 36.5; O2SAT 96
[2017-05-28 07:17] LABS: HEMOGLOBIN 12.6 g/dL (14.0-18.0); RED CELL DISTRIBUTION WIDTH CV 13.5 % (11.5-14.5); RED CELL DISTRIBUTION WIDTH SD 47.9 fL (36.4-46.3); WHITE BLOOD COUNT 6.74 K/uL (4.8-10.8)
[2017-05-28 07:23] LABS: BASO % 0.1 %; BASO ABS # 0.01 K/uL (0-0.2); EOS % 2.2 %; EOS ABS # 0.15 K/uL (0-0.5); IG# 0.14 K/uL (0.00-0.02); LYMPH % 14.5 %; LYMPH ABS # 0.98 K/uL (1.2-3.4); MEAN PLATELET VOLUME 10.9 fL (7.4-10.4); MONO % 17.4 %; MONO ABS # 1.17 K/uL (0.11-0.59); NEUT % 63.7 %; NEUT ABS # 4.29 K/uL (1.4-6.5); PLATELET COUNT 50 K/uL (130-400)
[2017-05-28 07:50] LABS: CREATININE 3.07 mg/dl (0.60-1.40)
[2017-05-28 07:51] LABS: ALBUMIN 2.6 gm/dl (3.4-5.0); CALCIUM 8.6 mg/dl (8.5-10.1); POTASSIUM 4.3 mmol/L (3.5-5.1)
[2017-05-28] MEDS: RANITIDINE HCL 150 MG TAB PO SCH ×2 (07:52→20:48)
[2017-05-28] MEDS: ASPIRIN 81 MG ECTAB PO SCH (07:52)
[2017-05-28 07:54] LABS: TOTAL PROTEIN 6.9 gm/dl (6.4-8.2)
--- NOTE | 2017-05-28 08:47 | Cardiology Follow-Up ---
Subjective Subjective Date of Service: May 28, 2017. Pt evaluation today including: conversation w/ patient, conversation w/ family , physical exam, chart review, lab review, review of studies, review of inpatient medication list Additional Details: Feeling well this a.m.. Denies any chest pain, shortness of breath. No other new complaints. Problem List Medical Problems: (1) Acute renal failure Status: Acute (2) Elevated troponin Status: Acute (3) Hearing loss Status: Chronic (4) Liver failure Status: Acute (5) NSTEMI (non-ST elevated myocardial infarction) Status: Acute (6) Thrombocytopenia Status: Acute (7) Transaminitis Status: Acute Review of Systems Constitutional: + weakness, + fatigue Eyes: No problem reported Respiratory: No cough, No shortness of breath, No dyspnea on exertion Cardiac: No chest pain Abdomen: No pain Musculoskeletal: No joint pain Male : No dysuria Neurologic: + weakness Psychiatric: No problem reported Heme: No abnormal bleeding/bruising Endo: + fatigue Skin: No rash Objective Vital Signs Last Vital Signs Documentation Date Time Temp Pulse Resp B/P (MAP) Pulse Ox O2 Delivery O2 Flow Rate FiO2 05/28/17 07:03 36.5 65 20 115/71 (86) 96 Room Air Physical Exam: General Appearance: no apparent distress Neck: supple Respiratory/Chest: no respiratory distress, no accessory muscle use, + crackles (few crackles at bases bilaterally) Cardiovascular: regular rate, rhythm, no murmur, + JVD (~9-10) Abdomen: normal bowel sounds, non tender, soft Extremities: no pedal edema, no calf tenderness Neurologic/Psychiatric: alert, normal mood/affect Skin: normal color, warm/dry, no rash Lymphatic: no adenopathy Assessment and Plan 1. Inferior UT/RV infarct 2. Ischemic cardiomyopathy; LVEF 30-35% 3. Acute renal failure, suspected ATN secondary to cardiogenic shock/RV failure 4. Suspected ischemic hepatitis/congestive hepatopathy 5. Thrombocytopenia. Patient remains chest pain free. On exam today minimal congestion and appears well perfused. Good urine output Renal function, LFTs continue to improve. -- Hold on additional fluids/diuretics. -- Continue aspirin. -- Start low dose beta-marlin -- metoprolol 12.5 BID -- JOMAR inhibitor on hold with ARF, statin on hold with LFTs Will continue to follow. Medications: Current Inpatient Medications Medications (Trade) Dose Ordered Sig/Sahil Route Start Time Stop Time Status Last Admin Dose Admin Levothyroxine Sodium (Synthroid Tab) 100 mcg DAILYBB PO 05/25/17 06:00 06/24/17 06:59 05/28/17 05:39 100 MCG Ranitidine HCl (zANTac TAB) 150 mg BID PO 05/25/17 09:00 06/24/17 08:59 05/28/17 07:52 150 MG Aspirin (Ecotrin Tab) 81 mg QAM PO 05/26/17 09:00 06/25/17 08:59 05/28/17 07:52 81 MG Lab Results: 05/28/17 06:46 Red Blood Count 3.71, Mean Corpuscular Volume 97.0, Mean Corpuscular Hemoglobin 34.0, Mean Corpuscular Hemoglobin Concent 35.0, Mean Platelet Volume 10.9, Neutrophils (%) (Auto) 63.7, Lymphocytes (%) (Auto) 14.5, Monocytes (%) (Auto) 17.4, Eosinophils (%) (Auto) 2.2, Basophils (%) (Auto) 0.1, Neutrophils # (Auto ) 4.29, Lymphocytes # (Auto) 0.98, Monocytes # (Auto) 1.17, Eosinophils # (Auto ) 0.15, Basophils # (Auto) 0.01 05/28/17 06:46 Test 05/27/17 20:24 05/28/17 06:46 Bedside Glucose 186 mg/dl (70-99) White Blood Count 6.74 K/uL (4.8-10.8) Red Blood Count 3.71 M/uL (4.7-6.1) Hemoglobin 12.6 g/dL (14.0-18.0) Hematocrit 36.0 % (42-52) Mean Corpuscular Volume 97.0 fL (80-100) Mean Corpuscular Hemoglobin 34.0 pg (25-34) Mean Corpuscular Hemoglobin Concent 35.0 g/dl (32-36) Platelet Count 50 K/uL (130-400) Mean Platelet Volume 10.9 fL (7.4-10.4) Neutrophils (%) (Auto) 63.7 % Lymphocytes (%) (Auto) 14.5 % Monocytes (%) (Auto) 17.4 % Eosinophils (%) (Auto) 2.2 % Basophils (%) (Auto) 0.1 % Neutrophils # (Auto) 4.29 K/uL (1.4-6.5) Lymphocytes # (Auto) 0.98 K/uL (1.2-3.4) Monocytes # (Auto) 1.17 K/uL (0.11-0.59) Eosinophils # (Auto) 0.15 K/uL (0-0.5) Basophils # (Auto) 0.01 K/uL (0-0.2) RDW Standard Deviation 47.9 fL (36.4-46.3) RDW Coefficient of Variation 13.5 % (11.5-14.5) Immature Granulocyte % (Auto) 2.1 % Immature Granulocyte # (Auto) 0.14 K/uL (0.00-0.02) Anion Gap 11.0 mmol/L (3-11) Est Creatinine Clear Calc Drug Dose 15.5 ml/min Estimated GFR () 19.8 Estimated GFR (Non- 17.1 BUN/Creatinine Ratio 24.0 (10-20) Calcium Level 8.6 mg/dl (8.5-10.1) Total Bilirubin 1.1 mg/dl (0.2-1) Direct Bilirubin 0.3 mg/dl (0-0.2) Aspartate Amino Transf (AST/SGOT) 64 U/L (15-37) Alanine Aminotransferase (ALT/SGPT) 561 U/L (12-78) Alkaline Phosphatase 67 U/L (45-117) Total Protein 6.9 gm/dl (6.4-8.2) Albumin 2.6 gm/dl (3.4-5.0)
--- NOTE | 2017-05-28 10:28 | Nephrology Progress Note ---
Nephrology Progress Note Date of Service May 28, 2017. Chief Complaint ISAIAS Subjective Mr. Rae was seen & examined in his hospital room this morning. He reports that he is subjectively improved. Mr. Rae currently denies fever, angina, dyspnea or uremic symptoms. He voices no new medical concerns at this time. Review of Systems Constitutional: No fever Cardiovascular: No chest pain Respiratory: No dyspnea at rest Abdomen: No pain, No nausea, No vomiting Extremities: No leg edema A complete review of systems was performed. Pertinent positives are noted above. All other systems are negative. Vital Signs Last 8 Hrs Date Time Temp Pulse Resp B/P (MAP) Pulse Ox O2 Delivery O2 Flow Rate FiO2 05/28/17 08:00 Room Air 05/28/17 07:03 36.5 65 20 115/71 (86) 96 Room Air Last Recorded Weight Weight (Kilograms): 76.200 Physical Exam General Appearance: no apparent distress Head: normocephalic, atraumatic Eyes: PERRL, EOMI Neck: no adenopathy Respiratory/Chest: lungs clear, no respiratory distress Cardiovascular: regular rate, rhythm, no murmur Abdomen/GI: normal bowel sounds, non tender, soft Genitourinary - Male: + pertinent finding (abbasi catheter in place draining clear yellow urine) Extremities/Musculoskelatal: no calf tenderness, no pedal edema Neurologic/Psych: alert, oriented x 3 Social History Smokeless Tobacco Use: No Alcohol Use: none Drug Use: none Marital Status: Occupation: retired Laboratory Results Past 24 Hours 05/28/17 06:46 Red Blood Count 3.71, Mean Corpuscular Volume 97.0, Mean Corpuscular Hemoglobin 34.0, Mean Corpuscular Hemoglobin Concent 35.0, Mean Platelet Volume 10.9, Neutrophils (%) (Auto) 63.7, Lymphocytes (%) (Auto) 14.5, Monocytes (%) (Auto) 17.4, Eosinophils (%) (Auto) 2.2, Basophils (%) (Auto) 0.1, Neutrophils # (Auto ) 4.29, Lymphocytes # (Auto) 0.98, Monocytes # (Auto) 1.17, Eosinophils # (Auto ) 0.15, Basophils # (Auto) 0.01 05/28/17 06:46 Test 05/27/17 17:03 05/27/17 20:24 05/28/17 06:46 Bedside Glucose 237 mg/dl (70-99) 186 mg/dl (70-99) White Blood Count 6.74 K/uL (4.8-10.8) Red Blood Count 3.71 M/uL (4.7-6.1) Hemoglobin 12.6 g/dL (14.0-18.0) Hematocrit 36.0 % (42-52) Mean Corpuscular Volume 97.0 fL (80-100) Mean Corpuscular Hemoglobin 34.0 pg (25-34) Mean Corpuscular Hemoglobin Concent 35.0 g/dl (32-36) Platelet Count 50 K/uL (130-400) Mean Platelet Volume 10.9 fL (7.4-10.4) Neutrophils (%) (Auto) 63.7 % Lymphocytes (%) (Auto) 14.5 % Monocytes (%) (Auto) 17.4 % Eosinophils (%) (Auto) 2.2 % Basophils (%) (Auto) 0.1 % Neutrophils # (Auto) 4.29 K/uL (1.4-6.5) Lymphocytes # (Auto) 0.98 K/uL (1.2-3.4) Monocytes # (Auto) 1.17 K/uL (0.11-0.59) Eosinophils # (Auto) 0.15 K/uL (0-0.5) Basophils # (Auto) 0.01 K/uL (0-0.2) RDW Standard Deviation 47.9 fL (36.4-46.3) RDW Coefficient of Variation 13.5 % (11.5-14.5) Immature Granulocyte % (Auto) 2.1 % Immature Granulocyte # (Auto) 0.14 K/uL (0.00-0.02) Anion Gap 11.0 mmol/L (3-11) Est Creatinine Clear Calc Drug Dose 15.5 ml/min Estimated GFR () 19.8 Estimated GFR (Non- 17.1 BUN/Creatinine Ratio 24.0 (10-20) Calcium Level 8.6 mg/dl (8.5-10.1) Total Bilirubin 1.1 mg/dl (0.2-1) Direct Bilirubin 0.3 mg/dl (0-0.2) Aspartate Amino Transf (AST/SGOT) 64 U/L (15-37) Alanine Aminotransferase (ALT/SGPT) 561 U/L (12-78) Alkaline Phosphatase 67 U/L (45-117) Total Protein 6.9 gm/dl (6.4-8.2) Albumin 2.6 gm/dl (3.4-5.0) Allergies Coded Allergies: Niacin (Verified Allergy, Mild, RASH, 05/24/17) Medications Current Inpatient Medications Medications (Trade) Dose Ordered Sig/Sahil Route Start Time Stop Time Status Last Admin Dose Admin Levothyroxine Sodium (Synthroid Tab) 100 mcg DAILYBB PO 05/25/17 06:00 06/24/17 06:59 05/28/17 05:39 100 MCG Ranitidine HCl (zANTac TAB) 150 mg BID PO 05/25/17 09:00 06/24/17 08:59 05/28/17 07:52 150 MG Aspirin (Ecotrin Tab) 81 mg QAM PO 05/26/17 09:00 06/25/17 08:59 05/28/17 07:52 81 MG Impression (1) Acute renal failure (2) Transaminitis (3) Hypertension (4) Proteinuria (5) Thrombocytopenia (6) Elevated troponin (7) NSTEMI (non-ST elevated myocardial infarction) Mr. Rae suffered AIMI / RV infarction complicated by hypotension, ISAIAS and acute hepatic injury. Admission creatinine was 7.5 w/ BUN 125. He had significant electrolyte abnormalities including hyperkalemia and metabolic acidosis. CT of abdomen & pelvis without contrast was negative for obstruction. Urinalysis revealed low grade proteinuria and hematuria. Baseline creatinine has been 1.3 - 1.4 Echocardiogram this hospitalization revealed LVEF 30 - 35% w/ severe RV dysfunction and moderate MR / TR. Recommendations ACUTE KIDNEY INJURY: -- Patient is in recovery phase. Creatinine has dropped to 3.0, volume status & electrolyte balance are currently acceptable -- Baseline creatinine has been 1.3 - 1.4 -- Monitor serial PRP -- Attempt Abbasi catheter removal and voiding trial if OK w/ primary service ASCVD: -- Patient suffered AIMI / RV infarction -- Echocardiogram this hospitalization revealed LVEF 30 - 35% w/ severe RV dysfunction and moderate MR / TR -- Cardiology is starting ASA and low dose beta marlin -- JOMAR inhibitor held due to recent ISAIAS OTHER: -- Recommend PT for strengthening exercises
[2017-05-28 10:58] VITALS: BP 111/68; PULSE 77; O2SAT 95
--- NOTE | 2017-05-28 11:33 | Hospitalist Progress Note ---
Hospitalist Progress Note Date of Service May 28, 2017. (Genia Elder ., JAGJIT-C) Subjective Pt evaluation today including: conversation w/ patient, conversation w/ family ( ), physical exam, lab review, review of studies, review of inpatient medication list Voiding: abbasi catheter in place (draining clear/yellow urine ) Patient resting in bed. Denies any complaints. Very [place]. states he is waiting for new hearing aides. Eating and drinking OK. 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 Encourage PT/OT. is patient in bed 1. Planning for [facility]. She is hoping he can be discharge to [facility] as well so they can be together. Patient denies any fever, chills, sweats, lightheadedness, dizziness, vision changes, CP, palpitations, edema, SOB, wheezing, cough, abdominal pain, nausea, vomiting, diarrhea, urinary symptoms, melena, numbness/tingling, weakness, muscle/joint pain, anxiety/depression, active bleeding, or new skin discoloration/changes. (Genia Elder ., JAGJIT-C) Medications Current Inpatient Medications Medications (Trade) Dose Ordered Sig/Sahil Route Start Time Stop Time Status Last Admin Dose Admin Levothyroxine Sodium (Synthroid Tab) 100 mcg DAILYBB PO 05/25/17 06:00 06/24/17 06:59 05/28/17 05:39 100 MCG Ranitidine HCl (zANTac TAB) 150 mg BID PO 05/25/17 09:00 06/24/17 08:59 05/28/17 07:52 150 MG Aspirin (Ecotrin Tab) 81 mg QAM PO 05/26/17 09:00 06/25/17 08:59 05/28/17 07:52 81 MG (Genia Elder ., PA-C) Objective Vital Signs Date Time Temp Pulse Resp B/P (MAP) Pulse Ox O2 Delivery O2 Flow Rate FiO2 05/28/17 08:00 Room Air 05/28/17 07:03 36.5 65 20 115/71 (86) 96 Room Air 05/28/17 00:30 Room Air 05/28/17 00:10 36.9 65 21 125/74 (91) 94 Room Air 05/27/17 16:00 Room Air 05/27/17 14:55 36.8 67 18 123/75 (91) 95 Room Air 05/27/17 12:35 36.7 75 22 127/71 (89) 96 Room Air 05/27/17 11:31 36.7 61 24 96 (Genia Elder PA-C) Physical Exam General Appearance: no apparent distress Eyes: normal inspection, PERRL ENT: + pertinent finding ([place]) Neck: supple Respiratory/Chest: lungs clear, no respiratory distress, no accessory muscle use Cardiovascular: regular rate, rhythm Abdomen: normal bowel sounds, non tender, soft Extremities: no pedal edema, no calf tenderness Neurologic/Psychiatric: alert, normal mood/affect, oriented x 3 Skin: normal color, warm/dry, no rash (Genia Elder PA-C) Laboratory Results Last 24 Hours Test 05/27/17 17:03 05/27/17 20:24 05/28/17 06:46 05/28/17 07:51 Bedside Glucose 237 mg/dl 186 mg/dl 108 mg/dl White Blood Count 6.74 K/uL Red Blood Count 3.71 M/uL Hemoglobin 12.6 g/dL Hematocrit 36.0 % Mean Corpuscular Volume 97.0 fL Mean Corpuscular Hemoglobin 34.0 pg Mean Corpuscular Hemoglobin Concent 35.0 g/dl Platelet Count 50 K/uL Mean Platelet Volume 10.9 fL Neutrophils (%) (Auto) 63.7 % Lymphocytes (%) (Auto) 14.5 % Monocytes (%) (Auto) 17.4 % Eosinophils (%) (Auto) 2.2 % Basophils (%) (Auto) 0.1 % Neutrophils # (Auto) 4.29 K/uL Lymphocytes # (Auto) 0.98 K/uL Monocytes # (Auto) 1.17 K/uL Eosinophils # (Auto) 0.15 K/uL Basophils # (Auto) 0.01 K/uL RDW Standard Deviation 47.9 fL RDW Coefficient of Variation 13.5 % Immature Granulocyte % (Auto) 2.1 % Immature Granulocyte # (Auto) 0.14 K/uL Sodium Level 141 mmol/L Potassium Level 4.3 mmol/L Chloride Level 108 mmol/L Carbon Dioxide Level 22 mmol/L Anion Gap 11.0 mmol/L Blood Urea Nitrogen 74 mg/dl Creatinine 3.07 mg/dl Est Creatinine Clear Calc Drug Dose 15.5 ml/min Estimated GFR () 19.8 Estimated GFR (Non- 17.1 BUN/Creatinine Ratio 24.0 Random Glucose 113 mg/dl Calcium Level 8.6 mg/dl Total Bilirubin 1.1 mg/dl Direct Bilirubin 0.3 mg/dl Aspartate Amino Transf (AST/SGOT) 64 U/L Alanine Aminotransferase (ALT/SGPT) 561 U/L Alkaline Phosphatase 67 U/L Total Protein 6.9 gm/dl Albumin 2.6 gm/dl (Genia Elder, SHERRY) Assessment and Plan 89 y/o M who until recently has been relatively healthy and independent. 10 days ago he developed a flu-like illness. He was generally weak but was not able to describe any specific symptoms. One day prior he visited his primary care clinic. He was sent home after labs and a CXR were obtained. The pt was then called back and told to attend the hospital due to highly abnormal labs. His lab results are in fact catastrophic. The pts troponin is 196 with only questionable inferior EKG changes. His creatinine is 7.2 and his ALT is > 3500. Labs obtained 11/27 were relatively normal aside from a creatinine of 1.4. The pt is remarkably asymptomatic and has no specific complaints. He denies chest or abdominal pain, denies SOB, cough, diarrhea, dysuria, oliguria or fevers. His CXR is suspicious for congestion without definitive pathology. A CT abdomen was not consistent with cirrhosis or renal outlet obstruction. Inferior/RV [place], acute systolic and RV heart failure: - Admitted to ICU for acute management- transferred to med/surg on 05/27 - Trended cardiac enzymes- peak trop 196--> now 25 - Continue ASA 81 mg daily - Plavix held due to thrombocytopenia; statin held due to elevated LFTs; ACEi held due to ISAIAS - ECHO- EF 30-35%, RV dysfunction, inferior/inferolateral/inferoseptal akinetic - Cardiology following, appreciate recommendations- start Metoprolol 12.5 mg BID ISAIAS on CKD stage III- chief of safety and protection 3.0 today- IMPROVING: - IVF- discontinued due to adequate PO intake - Hold nephrotoxic agents and renally dose medications as appropriate - Nephrology following, appreciate recommendations -- d/c Nithya today for voiding trial Hyperkalemia, due to renal failure- RESOLVED: Treated w/ Kayexalate and dextrose /insulin infusion on 05/26 Hyperglycemia- hgbA1c 6.4% in 11/2016: - BSG ACHS and ISS - Check hgbA1c Ischemic hepatitis/congestive hepatopathy- IMPROVING: - Liver US- unremarkable - Follow LFTs- trending down - GI consulted, appreciate recommendations Thrombocytopenia, likely from liver congestion- STABLE: Continue to follow Hypothyroidism- TSH 5.8: Synthroid 100 mcg daily GI prophylaxis: Zantac DVT prophylaxis: TEDs/SCDs, ambulation; chemical anticoagulation held due to thrombocytopenia Code Status: LEVEL I, FULL Dispo: From home, lives w/ - currently hospitalized and planning for rehab (both hoping for same rehab)- PT/OT and CM consulted (Genia Elder, PA-C) Supervising Note Dr. Howell I performed a history and physical examination on the patient. I reviewed above note and agree with it. I discussed plan with APC and patient. During my face to face encounter with the patient, I answered all of the patient's questions. (Edwardo Howell M.D.)
[2017-05-28] MEDS ORDERED: DEXTROSE 50% 50 ML SYR IV PRN (13:00)
[2017-05-28] MEDS ORDERED: GLUCAGON FOR INJ 1 MG VIAL SQ PRN (13:00)
[2017-05-28] MEDS ORDERED: GLUCOSE 10 TABS/TUBE PO PRN (13:00)
[2017-05-28] MEDS ORDERED: GLUCOSE 40% GEL 15 GM TUBE PO PRN (13:00)
[2017-05-28] MEDS: INSULIN ASPART 100 UNITS/ML 3 ML PEN SC SCH ×3 (13:44→20:53)
[2017-05-28 16:05] VITALS: O2SAT 95
[2017-05-28 17:19] VITALS: BP 111/57; PULSE 70; TEMP 36.8; O2SAT 95
[2017-05-28] MEDS: METOPROLOL TARTRATE 25 MG TAB PO SCH (20:48)
[2017-05-29] MEDS: LEVOTHYROXINE 100 MCG TAB PO SCH (06:12)
[2017-05-29 07:59] VITALS: BP 122/73; PULSE 67; TEMP 36.8; O2SAT 96
[2017-05-29 08:05] LABS: HEMATOCRIT 37.3 % (42-52); HEMOGLOBIN 12.8 g/dL (14.0-18.0); MEAN CELL VOLUME 98.2 fL (80-100); MEAN CORPUSCULAR HEMOGLOBIN 33.7 pg (25-34); MEAN CORPUSCULAR HGB CONC 34.3 g/dl (32-36); RED CELL DISTRIBUTION WIDTH CV 13.8 % (11.5-14.5); RED CELL DISTRIBUTION WIDTH SD 48.6 fL (36.4-46.3); WHITE BLOOD COUNT 8.12 K/uL (4.8-10.8)
[2017-05-29 08:32] LABS: ALBUMIN 2.6 gm/dl (3.4-5.0); CALCIUM 8.8 mg/dl (8.5-10.1); CREATININE 2.2 mg/dl (0.60-1.40); POTASSIUM 4.4 mmol/L (3.5-5.1)
[2017-05-29 08:35] LABS: MEAN PLATELET VOLUME 10.4 fL (7.4-10.4); PLATELET COUNT 64 K/uL (130-400); TOTAL PROTEIN 7.4 gm/dl (6.4-8.2)
[2017-05-29 08:36] LABS: BASO % 0.2 %; BASO ABS # 0.02 K/uL (0-0.2); EOS % 1.2 %; IG# 0.11 K/uL (0.00-0.02); LYMPH % 11.5 %; LYMPH ABS # 0.93 K/uL (1.2-3.4); MONO % 11.6 %; MONO ABS # 0.94 K/uL (0.11-0.59); NEUT % 74.1 %; NEUT ABS # 6.02 K/uL (1.4-6.5)
[2017-05-29] MEDS: METOPROLOL TARTRATE 25 MG TAB PO SCH ×2 (09:02→22:06)
[2017-05-29] MEDS: ASPIRIN 81 MG ECTAB PO SCH (09:02)
[2017-05-29] MEDS: RANITIDINE HCL 150 MG TAB PO SCH ×2 (09:02→22:06)
[2017-05-29] MEDS: INSULIN ASPART 100 UNITS/ML 3 ML PEN SC SCH ×4 (09:03→22:00)
[2017-05-29 09:16] LABS: HEMOGLOBIN A1C 6.2 % (4.5-5.6)
--- NOTE | 2017-05-29 09:51 | Nephrology Progress Note ---
Nephrology Progress Note Date of Service May 29, 2017. Chief Complaint ISAIAS Subjective Mr. Rae was seen & examined in his hospital room this morning. He reports no complications overnight. He voices no new medical concerns. Barriga catheter was removed yesterday. Mr. Rae reports brisk urine output and denies difficulty voiding. Review of Systems Constitutional: No fever Cardiovascular: No chest pain Respiratory: No dyspnea at rest Abdomen: No pain, No nausea, No vomiting Genitourinary - Male: No dysuria, No gross hematuria, No urinary retention Extremities: No leg edema A complete review of systems was performed. Pertinent positives are noted above. All other systems are negative. Vital Signs Last 8 Hrs Date Time Temp Pulse Resp B/P (MAP) Pulse Ox O2 Delivery O2 Flow Rate FiO2 05/29/17 09:27 Room Air 05/29/17 07:59 36.8 67 18 122/73 (89) 96 Room Air Last Recorded Weight Weight (Kilograms): 76.200 Physical Exam General Appearance: no apparent distress Head: normocephalic, atraumatic Eyes: PERRL, EOMI Neck: no adenopathy, no JVD Respiratory/Chest: lungs clear, no respiratory distress Cardiovascular: regular rate, rhythm, no murmur Abdomen/GI: normal bowel sounds, non tender, soft Extremities/Musculoskelatal: no calf tenderness, no pedal edema Neurologic/Psych: alert, oriented x 3, + pertinent finding (hard of hearing) Social History Smokeless Tobacco Use: No Alcohol Use: none Drug Use: none Marital Status: Occupation: retired Laboratory Results Past 24 Hours 05/29/17 07:44 Red Blood Count 3.80, Mean Corpuscular Volume 98.2, Mean Corpuscular Hemoglobin 33.7, Mean Corpuscular Hemoglobin Concent 34.3, Mean Platelet Volume 10.4, Neutrophils (%) (Auto) 74.1, Lymphocytes (%) (Auto) 11.5, Monocytes (%) (Auto) 11.6, Eosinophils (%) (Auto) 1.2, Basophils (%) (Auto) 0.2, Neutrophils # (Auto ) 6.02, Lymphocytes # (Auto) 0.93, Monocytes # (Auto) 0.94, Eosinophils # (Auto ) 0.10, Basophils # (Auto) 0.02 05/29/17 07:44 Test 05/28/17 11:35 05/28/17 16:42 05/28/17 20:35 05/29/17 07:43 Bedside Glucose 205 mg/dl (70-99) 146 mg/dl (70-99) 203 mg/dl (70-99) 109 mg/dl (70-99) Test 05/29/17 07:44 White Blood Count 8.12 K/uL (4.8-10.8) Red Blood Count 3.80 M/uL (4.7-6.1) Hemoglobin 12.8 g/dL (14.0-18.0) Hematocrit 37.3 % (42-52) Mean Corpuscular Volume 98.2 fL (80-100) Mean Corpuscular Hemoglobin 33.7 pg (25-34) Mean Corpuscular Hemoglobin Concent 34.3 g/dl (32-36) Platelet Count 64 K/uL (130-400) Mean Platelet Volume 10.4 fL (7.4-10.4) Neutrophils (%) (Auto) 74.1 % Lymphocytes (%) (Auto) 11.5 % Monocytes (%) (Auto) 11.6 % Eosinophils (%) (Auto) 1.2 % Basophils (%) (Auto) 0.2 % Neutrophils # (Auto) 6.02 K/uL (1.4-6.5) Lymphocytes # (Auto) 0.93 K/uL (1.2-3.4) Monocytes # (Auto) 0.94 K/uL (0.11-0.59) Eosinophils # (Auto) 0.10 K/uL (0-0.5) Basophils # (Auto) 0.02 K/uL (0-0.2) RDW Standard Deviation 48.6 fL (36.4-46.3) RDW Coefficient of Variation 13.8 % (11.5-14.5) Immature Granulocyte % (Auto) 1.4 % Immature Granulocyte # (Auto) 0.11 K/uL (0.00-0.02) Platelet Estimate DECREASED Red Blood Cell Morphology Unremarkable Anion Gap 9.0 mmol/L (3-11) Est Creatinine Clear Calc Drug Dose 21.7 ml/min Estimated GFR () 29.7 Estimated GFR (Non- 25.6 BUN/Creatinine Ratio 24.2 (10-20) Estimated Average Glucose 131 mg/dl Hemoglobin A1c 6.2 % (4.5-5.6) Calcium Level 8.8 mg/dl (8.5-10.1) Total Bilirubin 1.3 mg/dl (0.2-1) Direct Bilirubin 0.4 mg/dl (0-0.2) Aspartate Amino Transf (AST/SGOT) 38 U/L (15-37) Alanine Aminotransferase (ALT/SGPT) 390 U/L (12-78) Alkaline Phosphatase 67 U/L (45-117) Total Protein 7.4 gm/dl (6.4-8.2) Albumin 2.6 gm/dl (3.4-5.0) Allergies Coded Allergies: Niacin (Verified Allergy, Mild, RASH, 05/24/17) Medications Current Inpatient Medications Medications (Trade) Dose Ordered Sig/Sahil Route Start Time Stop Time Status Last Admin Dose Admin Levothyroxine Sodium (Synthroid Tab) 100 mcg DAILYBB PO 05/25/17 06:00 06/24/17 06:59 05/29/17 06:12 100 MCG Ranitidine HCl (zANTac TAB) 150 mg BID PO 05/25/17 09:00 06/24/17 08:59 05/29/17 09:02 150 MG Aspirin (Ecotrin Tab) 81 mg QAM PO 05/26/17 09:00 06/25/17 08:59 05/29/17 09:02 81 MG Metoprolol Tartrate (Lopressor Tab) 12.5 mg BID PO 05/28/17 20:00 06/27/17 19:59 05/29/17 09:02 12.5 MG Insulin Aspart (novoLOG ASPART) SLIDING SCALE G... ACHS SC 05/28/17 12:45 06/27/17 12:44 05/28/17 20:53 2 UNITS Glucose (Glucose 40% Gel) 15-30 GRAMS 15 GRAMS... UD PRN PO 05/28/17 13:00 06/27/17 12:59 Glucose (Glucose Chew Tab) 4-8 Tablets 4 Tabl... UD PRN PO 05/28/17 13:00 06/27/17 12:59 Dextrose (Dextrose 50% 50ML Syringe) 25-50ML OF 50% DW IV FOR... UD PRN IV 05/28/17 13:00 2/14/18 12:59 Glucagon (Glucagon Inj) 1 mg UD PRN SQ 05/28/17 13:00 06/27/17 12:59 Impression (1) Acute renal failure (2) Transaminitis (3) Hypertension (4) Proteinuria (5) Thrombocytopenia (6) Elevated troponin (7) NSTEMI (non-ST elevated myocardial infarction) Mr. Rae suffered AIMI / RV infarction complicated by hypotension, ISAIAS and acute hepatic injury. Admission creatinine was 7.5 w/ BUN 125. He had significant electrolyte abnormalities including hyperkalemia and metabolic acidosis. CT of abdomen & pelvis without contrast was negative for obstruction. Urinalysis revealed low grade proteinuria and hematuria. Baseline creatinine has been 1.3 - 1.4 Echocardiogram this hospitalization revealed LVEF 30 - 35% w/ severe RV dysfunction and moderate MR / TR. Recommendations ACUTE KIDNEY INJURY: -- Patient is in recovery phase. Creatinine has dropped from 7.3 to 2.2, volume status & electrolyte balance are currently acceptable -- Baseline creatinine has been 1.3 - 1.4 -- Monitor serial PRP ASCVD: -- Patient suffered AIMI / RV infarction -- Echocardiogram this hospitalization revealed LVEF 30 - 35% w/ severe RV dysfunction and moderate MR / TR -- Cardiology has started ASA and low dose beta marlin -- JOMAR inhibitor held due to recent ISAIAS OTHER: -- Patient participated in PT yesterday. He ambulated 240 ft w/ rolling walker
[2017-05-29 14:16] LABS: ANA SCREEN TC 249X NEGATIVE (NEGATIVE)
[2017-05-29 15:25] VITALS: BP 105/66; PULSE 67; TEMP 36.6; O2SAT 95
[2017-05-29 16:05] VITALS: O2SAT 95
[2017-05-29 22:19] VITALS: BP 106/67; PULSE 67; TEMP 36.1; O2SAT 94
[2017-05-30] MEDS: LEVOTHYROXINE 100 MCG TAB PO SCH (06:33)
--- NOTE | 2017-05-30 07:35 | Progress Note ---
Subjective Date of Service: May 29, 2017. Subjective Patient seen on May 29, 2017. 89 yo male, he has no new complaints today. Problem List Medical Problems: (1) Acute renal failure Status: Acute (2) Elevated troponin Status: Acute (3) Hearing loss Status: Chronic (4) Liver failure Status: Acute (5) NSTEMI (non-ST elevated myocardial infarction) Status: Acute (6) Thrombocytopenia Status: Acute (7) Transaminitis Status: Acute Review of Systems Constitutional: No fever, No chills Eyes: No worsening of vision ENT: + hearing loss, No unusual epistaxis Respiratory: No cough, No sputum Cardiac: No chest pain, No orthopnea Abdomen: No pain, No nausea Neurologic: No memory loss, No paralysis Psychiatric: No depression symptoms, No anhedonism Skin: No rash, No itch All Other Systems: Reviewed and Negative Medications Current Inpatient Medications Medications (Trade) Dose Ordered Sig/Sahil Route Start Time Stop Time Status Last Admin Dose Admin Levothyroxine Sodium (Synthroid Tab) 100 mcg DAILYBB PO 05/25/17 06:00 06/24/17 06:59 05/30/17 06:33 100 MCG Ranitidine HCl (zANTac TAB) 150 mg BID PO 05/25/17 09:00 06/24/17 08:59 05/29/17 22:06 150 MG Aspirin (Ecotrin Tab) 81 mg QAM PO 05/26/17 09:00 06/25/17 08:59 05/29/17 09:02 81 MG Metoprolol Tartrate (Lopressor Tab) 12.5 mg BID PO 05/28/17 20:00 06/27/17 19:59 05/29/17 22:06 12.5 MG Insulin Aspart (novoLOG ASPART) SLIDING SCALE G... ACHS SC 05/28/17 12:45 06/27/17 12:44 05/29/17 13:07 1 UNITS Glucose (Glucose 40% Gel) 15-30 GRAMS 15 GRAMS... UD PRN PO 05/28/17 13:00 06/27/17 12:59 Glucose (Glucose Chew Tab) 4-8 Tablets 4 Tabl... UD PRN PO 05/28/17 13:00 06/27/17 12:59 Dextrose (Dextrose 50% 50ML Syringe) 25-50ML OF 50% DW IV FOR... UD PRN IV 05/28/17 13:00 06/27/17 12:59 Glucagon (Glucagon Inj) 1 mg UD PRN SQ 05/28/17 13:00 06/27/17 12:59 Objective Vital Signs Date Time Temp Pulse Resp B/P (MAP) Pulse Ox O2 Delivery O2 Flow Rate FiO2 05/30/17 00:30 Room Air 05/29/17 22:19 36.1 67 20 106/67 (80) 94 Room Air 05/29/17 16:05 95 Room Air 05/29/17 15:25 36.6 67 20 105/66 (79) 95 Room Air 05/29/17 09:27 Room Air 05/29/17 07:59 36.8 67 18 122/73 (89) 96 Room Air Physical Exam Comments: General Appearance: no apparent distress Eyes: normal inspection, PERRL ENT: + pertinent finding ([place]) Neck: supple Respiratory/Chest: lungs clear, no respiratory distress, no accessory muscle use Cardiovascular: regular rate, rhythm Abdomen: normal bowel sounds, non tender, soft Extremities: no pedal edema, no calf tenderness Neurologic/Psychiatric: alert, normal mood/affect, oriented x 3 Skin: normal color, warm/dry, no rash Laboratory Results Last 24 Hours Test 05/29/17 07:43 05/29/17 07:44 05/29/17 11:36 05/29/17 16:39 Bedside Glucose 109 mg/dl 171 mg/dl 108 mg/dl White Blood Count 8.12 K/uL Red Blood Count 3.80 M/uL Hemoglobin 12.8 g/dL Hematocrit 37.3 % Mean Corpuscular Volume 98.2 fL Mean Corpuscular Hemoglobin 33.7 pg Mean Corpuscular Hemoglobin Concent 34.3 g/dl Platelet Count 64 K/uL Mean Platelet Volume 10.4 fL Neutrophils (%) (Auto) 74.1 % Lymphocytes (%) (Auto) 11.5 % Monocytes (%) (Auto) 11.6 % Eosinophils (%) (Auto) 1.2 % Basophils (%) (Auto) 0.2 % Neutrophils # (Auto) 6.02 K/uL Lymphocytes # (Auto) 0.93 K/uL Monocytes # (Auto) 0.94 K/uL Eosinophils # (Auto) 0.10 K/uL Basophils # (Auto) 0.02 K/uL RDW Standard Deviation 48.6 fL RDW Coefficient of Variation 13.8 % Immature Granulocyte % (Auto) 1.4 % Immature Granulocyte # (Auto) 0.11 K/uL Platelet Estimate DECREASED Red Blood Cell Morphology Unremarkable Sodium Level 140 mmol/L Potassium Level 4.4 mmol/L Chloride Level 109 mmol/L Carbon Dioxide Level 22 mmol/L Anion Gap 9.0 mmol/L Blood Urea Nitrogen 53 mg/dl Creatinine 2.20 mg/dl Est Creatinine Clear Calc Drug Dose 21.7 ml/min Estimated GFR () 29.7 Estimated GFR (Non- 25.6 BUN/Creatinine Ratio 24.2 Random Glucose 114 mg/dl Estimated Average Glucose 131 mg/dl Hemoglobin A1c 6.2 % Calcium Level 8.8 mg/dl Total Bilirubin 1.3 mg/dl Direct Bilirubin 0.4 mg/dl Aspartate Amino Transf (AST/SGOT) 38 U/L Alanine Aminotransferase (ALT/SGPT) 390 U/L Alkaline Phosphatase 67 U/L Total Protein 7.4 gm/dl Albumin 2.6 gm/dl Test 05/29/17 20:32 05/30/17 04:44 Bedside Glucose 199 mg/dl Assessment and Plan 89 y/o M who until recently has been relatively healthy and independent. 10 days ago he developed a flu-like illness. He was generally weak but was not able to describe any specific symptoms. One day prior he visited his primary care clinic. He was sent home after labs and a CXR were obtained. The pt was then called back and told to attend the hospital due to highly abnormal labs. His lab results are in fact catastrophic. The pts troponin is 196 with only questionable inferior EKG changes. His creatinine is 7.2 and his ALT is > 3500. Labs obtained 11/27 were relatively normal aside from a creatinine of 1.4. The pt is remarkably asymptomatic and has no specific complaints. He denies chest or abdominal pain, denies SOB, cough, diarrhea, dysuria, oliguria or fevers. His CXR is suspicious for congestion without definitive pathology. A CT abdomen was not consistent with cirrhosis or renal outlet obstruction. Inferior/RV [place], acute systolic and RV heart failure: - Admitted to ICU for acute management- transferred to med/surg on 05/27 - Trended cardiac enzymes- peak trop 196--> now 25 on 05/25/16 - Continue ASA 81 mg daily - Plavix held due to thrombocytopenia; statin held due to elevated LFTs; ACEi held due to ISAIAS - ECHO- EF 30-35%, RV dysfunction, inferior/inferolateral/inferoseptal akinetic - Cardiology following, appreciate recommendations- start Metoprolol 12.5 mg BID ISAIAS on CKD stage III- raisin washer 3.0 today- IMPROVING: -Down from 7.3 to 2.2 - IVF- discontinued due to adequate PO intake - Hold nephrotoxic agents and renally dose medications as appropriate - Nephrology following, appreciate recommendations -- d/c Barriga today for voiding trial Hyperkalemia, due to renal failure- RESOLVED: Treated w/ Kayexalate and dextrose/insulin infusion on 05/26 Hyperglycemia- hgbA1c 6.4% in 11/2016: - BSG ACHS and ISS - A1C is actually better at 6.2 Ischemic hepatitis/congestive hepatopathy- IMPROVING: - Liver US- unremarkable - Follow LFTs- trending down - GI consulted, appreciate recommendations Thrombocytopenia, likely from liver congestion- STABLE: Continue to follow Hypothyroidism- TSH 5.8: Synthroid 100 mcg daily GI prophylaxis: Zantac DVT prophylaxis: TEDs/SCDs, ambulation; chemical anticoagulation held due to thrombocytopenia Code Status: LEVEL I, FULL Dispo: From home, lives w/ - currently hospitalized and planning for rehab (both hoping for same rehab)- PT/OT and CM consulted Continued [facility] stay due to: other Discharge planning: uncertain
[2017-05-30 08:02] VITALS: BP 117/66; PULSE 69; TEMP 36.7; O2SAT 94
[2017-05-30] MEDS: INSULIN ASPART 100 UNITS/ML 3 ML PEN SC SCH ×4 (08:19→21:46)
[2017-05-30] MEDS: ASPIRIN 81 MG ECTAB PO SCH (08:30)
[2017-05-30] MEDS: RANITIDINE HCL 150 MG TAB PO SCH ×2 (08:30→21:45)
[2017-05-30] MEDS: METOPROLOL TARTRATE 25 MG TAB PO SCH ×2 (08:31→21:45)
[2017-05-30 09:00] LABS: HEMATOCRIT 37.5 % (42-52); HEMOGLOBIN 13.1 g/dL (14.0-18.0); MEAN CELL VOLUME 98.9 fL (80-100); MEAN CORPUSCULAR HEMOGLOBIN 34.6 pg (25-34); MEAN CORPUSCULAR HGB CONC 34.9 g/dl (32-36); RED CELL DISTRIBUTION WIDTH CV 13.9 % (11.5-14.5); RED CELL DISTRIBUTION WIDTH SD 49.3 fL (36.4-46.3); WHITE BLOOD COUNT 10.56 K/uL (4.8-10.8)
[2017-05-30 09:10] LABS: PLATELET COUNT 80 K/uL (130-400)
[2017-05-30 09:27] LABS: CALCIUM 8.8 mg/dl (8.5-10.1); CREATININE 1.87 mg/dl (0.60-1.40); POTASSIUM 4.1 mmol/L (3.5-5.1)
--- NOTE | 2017-05-30 09:49 | Hospitalist Progress Note ---
Hospitalist Progress Note Date of Service May 30, 2017. (Genia Elder ., SHERRY) Subjective Pt evaluation today including: conversation w/ patient, physical exam, lab review, review of inpatient medication list Voiding: no voiding problems Patient sitting up in bed. Eating and drinking OK. Denies any complaints at this time. Barriga removed two days ago- urinating w/out difficulty Anxious for discharge. Patient denies any fever, chills, sweats, lightheadedness, dizziness, vision changes, CP, palpitations, edema, SOB, wheezing, cough, abdominal pain, nausea, vomiting, diarrhea, urinary symptoms, melena, numbness/tingling, weakness, muscle/joint pain, anxiety/depression, active bleeding, or new skin discoloration/changes. (Genia Elder, LIONELC) Medications Current Inpatient Medications Medications (Trade) Dose Ordered Sig/Sahil Route Start Time Stop Time Status Last Admin Dose Admin Levothyroxine Sodium (Synthroid Tab) 100 mcg DAILYBB PO 05/25/17 06:00 06/24/17 06:59 05/30/17 06:33 100 MCG Ranitidine HCl (zANTac TAB) 150 mg BID PO 05/25/17 09:00 06/24/17 08:59 05/30/17 08:30 150 MG Aspirin (Ecotrin Tab) 81 mg QAM PO 05/26/17 09:00 06/25/17 08:59 05/30/17 08:30 81 MG Metoprolol Tartrate (Lopressor Tab) 12.5 mg BID PO 05/28/17 20:00 06/27/17 19:59 05/30/17 08:31 12.5 MG Insulin Aspart (novoLOG ASPART) SLIDING SCALE G... ACHS SC 05/28/17 12:45 06/27/17 12:44 05/29/17 13:07 1 UNITS Glucose (Glucose 40% Gel) 15-30 GRAMS 15 GRAMS... UD PRN PO 05/28/17 13:00 06/27/17 12:59 Glucose (Glucose Chew Tab) 4-8 Tablets 4 Tabl... UD PRN PO 05/28/17 13:00 06/27/17 12:59 Dextrose (Dextrose 50% 50ML Syringe) 25-50ML OF 50% DW IV FOR... UD PRN IV 05/28/17 13:00 06/27/17 12:59 Glucagon (Glucagon Inj) 1 mg UD PRN SQ 05/28/17 13:00 06/27/17 12:59 (Gneia Elder, LIONELC) Objective Vital Signs Date Time Temp Pulse Resp B/P (MAP) Pulse Ox O2 Delivery O2 Flow Rate FiO2 05/30/17 08:02 36.7 69 20 117/66 (83) 94 Room Air 05/30/17 07:35 Room Air 05/30/17 00:30 Room Air 05/29/17 22:19 36.1 67 20 106/67 (80) 94 Room Air 05/29/17 16:05 95 Room Air 05/29/17 15:25 36.6 67 20 105/66 (79) 95 Room Air (Genia Elder, JAGJIT-C) Physical Exam General Appearance: no apparent distress Eyes: normal inspection, PERRL ENT: + pertinent finding (GRINDSTONE ) Neck: supple Respiratory/Chest: no respiratory distress, no accessory muscle use, + crackles (bilateral lung bases ) Cardiovascular: regular rate, rhythm Abdomen: normal bowel sounds, non tender, soft Extremities: no pedal edema, no calf tenderness Neurologic/Psychiatric: alert, normal mood/affect, oriented x 3 Skin: normal color, warm/dry, no rash (Genia Elder, JAGJIT-C) Laboratory Results Last 24 Hours Test 05/29/17 11:36 05/29/17 16:39 05/29/17 20:32 05/30/17 07:51 Bedside Glucose 171 mg/dl 108 mg/dl 199 mg/dl 106 mg/dl Test 05/30/17 08:40 White Blood Count 10.56 K/uL Red Blood Count 3.79 M/uL Hemoglobin 13.1 g/dL Hematocrit 37.5 % Mean Corpuscular Volume 98.9 fL Mean Corpuscular Hemoglobin 34.6 pg Mean Corpuscular Hemoglobin Concent 34.9 g/dl RDW Standard Deviation 49.3 fL RDW Coefficient of Variation 13.9 % Platelet Count 80 K/uL Mean Platelet Volume 11.0 fL Sodium Level 140 mmol/L Potassium Level 4.1 mmol/L Chloride Level 108 mmol/L Carbon Dioxide Level 21 mmol/L Anion Gap 10.0 mmol/L Blood Urea Nitrogen 42 mg/dl Creatinine 1.87 mg/dl Est Creatinine Clear Calc Drug Dose 25.5 ml/min Estimated GFR () 36.1 Estimated GFR (Non- 31.2 BUN/Creatinine Ratio 22.4 Random Glucose 108 mg/dl Calcium Level 8.8 mg/dl (Genia Elder, SHERRY) Assessment and Plan 89 y/o M who until recently has been relatively healthy and independent. 10 days ago he developed a flu-like illness. He was generally weak but was not able to describe any specific symptoms. One day prior he visited his primary care clinic. He was sent home after labs and a CXR were obtained. The pt was then called back and told to attend the hospital due to highly abnormal labs. His lab results are in fact catastrophic. The pts troponin is 196 with only questionable inferior EKG changes. His creatinine is 7.2 and his ALT is > 3500. Labs obtained 11/27 were relatively normal aside from a creatinine of 1.4. The pt is remarkably asymptomatic and has no specific complaints. He denies chest or abdominal pain, denies SOB, cough, diarrhea, dysuria, oliguria or fevers. His CXR is suspicious for congestion without definitive pathology. A CT abdomen was not consistent with cirrhosis or renal outlet obstruction. 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- IMPROVING: - IVF- discontinued due to adequate PO intake - Hold nephrotoxic agents and renally dose medications as appropriate - Nephrology following, appreciate recommendations Hyperkalemia, due to renal failure- RESOLVED: Treated w/ Kayexalate and dextrose /insulin infusion on 05/26 Hyperglycemia- hgbA1c 6.2%: BSG ACHS and ISS Ischemic hepatitis/congestive hepatopathy- IMPROVING: - Liver US- unremarkable - Follow LFTs- trending down - GI consulted, appreciate recommendations Thrombocytopenia, likely from liver congestion- STABLE: Continue to follow Hypothyroidism- TSH 5.8: Synthroid 100 mcg daily GI prophylaxis: Zantac DVT prophylaxis: TEDs/SCDs, ambulation; chemical anticoagulation held due to thrombocytopenia Code Status: LEVEL I, FULL Dispo: From home, lives w/ - CM following- likely home w/in the next 1-2 days - PT/OT- recommend patient return home at discharge (Genia Elder, PA-C) Supervising Note Dr. Howell I performed a history and physical examination on the patient. I reviewed above note and agree with it. I discussed plan with APC and patient. During my face to face encounter with the patient, I answered all of the patient's questions. (Edwardo Howell M.D.)
--- NOTE | 2017-05-30 09:50 | Nephrology Progress Note ---
Nephrology Progress Note Date of Service May 30, 2017. Chief Complaint ISAIAS Subjective Mr. Rae was seen & examined in his hospital room this morning. He currently denies angina, dyspnea or difficulty voiding. He reports improved strength. His was discharged to home yesterday. Review of Systems Constitutional: No fever Cardiovascular: No chest pain Respiratory: No dyspnea at rest Abdomen: No pain, No nausea, No vomiting Extremities: No leg edema A complete review of systems was performed. Pertinent positives are noted above. All other systems are negative. Vital Signs Last 8 Hrs Date Time Temp Pulse Resp B/P (MAP) Pulse Ox O2 Delivery O2 Flow Rate FiO2 05/30/17 08:02 36.7 69 20 117/66 (83) 94 Room Air 05/30/17 07:35 Room Air Last Recorded Weight Weight (Kilograms): 76.200 Physical Exam General Appearance: no apparent distress Head: normocephalic, atraumatic Eyes: PERRL, EOMI Neck: no adenopathy Respiratory/Chest: lungs clear, no respiratory distress Cardiovascular: regular rate, rhythm, no murmur Abdomen/GI: normal bowel sounds, non tender, soft Extremities/Musculoskelatal: no calf tenderness, no pedal edema Neurologic/Psych: alert, + pertinent finding (hard of hearing) Social History Smokeless Tobacco Use: No Alcohol Use: none Drug Use: none Marital Status: Occupation: retired Laboratory Results Past 24 Hours 05/30/17 08:40 05/30/17 08:40 Test 05/29/17 11:36 05/29/17 16:39 05/29/17 20:32 05/30/17 07:51 Bedside Glucose 171 mg/dl (70-99) 108 mg/dl (70-99) 199 mg/dl (70-99) 106 mg/dl (70-99) Test 05/30/17 08:40 Red Blood Count 3.79 M/uL (4.7-6.1) Mean Corpuscular Volume 98.9 fL (80-100) Mean Corpuscular Hemoglobin 34.6 pg (25-34) Mean Corpuscular Hemoglobin Concent 34.9 g/dl (32-36) RDW Standard Deviation 49.3 fL (36.4-46.3) RDW Coefficient of Variation 13.9 % (11.5-14.5) Mean Platelet Volume 11.0 fL (7.4-10.4) Anion Gap 10.0 mmol/L (3-11) Est Creatinine Clear Calc Drug Dose 25.5 ml/min Estimated GFR () 36.1 Estimated GFR (Non- 31.2 BUN/Creatinine Ratio 22.4 (10-20) Calcium Level 8.8 mg/dl (8.5-10.1) Allergies Coded Allergies: Niacin (Verified Allergy, Mild, RASH, 05/24/17) Medications Current Inpatient Medications Medications (Trade) Dose Ordered Sig/Sahil Route Start Time Stop Time Status Last Admin Dose Admin Levothyroxine Sodium (Synthroid Tab) 100 mcg DAILYBB PO 05/25/17 06:00 06/24/17 06:59 05/30/17 06:33 100 MCG Ranitidine HCl (zANTac TAB) 150 mg BID PO 05/25/17 09:00 06/24/17 08:59 05/30/17 08:30 150 MG Aspirin (Ecotrin Tab) 81 mg QAM PO 05/26/17 09:00 06/25/17 08:59 05/30/17 08:30 81 MG Metoprolol Tartrate (Lopressor Tab) 12.5 mg BID PO 05/28/17 20:00 06/27/17 19:59 05/30/17 08:31 12.5 MG Insulin Aspart (novoLOG ASPART) SLIDING SCALE G... ACHS SC 05/28/17 12:45 06/27/17 12:44 05/29/17 13:07 1 UNITS Glucose (Glucose 40% Gel) 15-30 GRAMS 15 GRAMS... UD PRN PO 05/28/17 13:00 06/27/17 12:59 Glucose (Glucose Chew Tab) 4-8 Tablets 4 Tabl... UD PRN PO 05/28/17 13:00 06/27/17 12:59 Dextrose (Dextrose 50% 50ML Syringe) 25-50ML OF 50% DW IV FOR... UD PRN IV 05/28/17 13:00 06/27/17 12:59 Glucagon (Glucagon Inj) 1 mg UD PRN SQ 05/28/17 13:00 06/27/17 12:59 Impression (1) Acute renal failure (2) Transaminitis (3) Hypertension (4) Proteinuria (5) Thrombocytopenia (6) Elevated troponin (7) NSTEMI (non-ST elevated myocardial infarction) Mr. Rae suffered AIMI / RV infarction complicated by hypotension, ISAIAS and acute hepatic injury. Admission creatinine was 7.5 w/ BUN 125. He had significant electrolyte abnormalities including hyperkalemia and metabolic acidosis. CT of abdomen & pelvis without contrast was negative for obstruction. Urinalysis revealed low grade proteinuria and hematuria. Baseline creatinine has been 1.3 - 1.4 Echocardiogram this hospitalization revealed LVEF 30 - 35% w/ severe RV dysfunction and moderate MR / TR. Recommendations ACUTE KIDNEY INJURY: -- Patient is in recovery phase. Creatinine has dropped from 7.3 to 1.87, volume status & electrolyte balance are currently acceptable -- Baseline creatinine has been 1.3 - 1.4 -- Monitor serial PRP ASCVD: -- Patient suffered AIMI / RV infarction -- Echocardiogram this hospitalization revealed LVEF 30 - 35% w/ severe RV dysfunction and moderate MR / TR -- Cardiology has started ASA and low dose beta marlin -- JOMAR inhibitor held due to recent ISAIAS HTN: -- Blood pressure is currently well controlled w/ low dose beta marlin. Continue to hold JOMAR inhibitor. OTHER: -- Patient participated in PT 05/28. He ambulated 240 ft w/ rolling walker
[2017-05-30 16:02] VITALS: O2SAT 95
[2017-05-30 16:17] VITALS: BP 128/75; PULSE 66; TEMP 36.3; O2SAT 92
[2017-05-30 22:52] VITALS: BP 119/69; PULSE 72; TEMP 36.4; O2SAT 94
[2017-05-31] MEDS: LEVOTHYROXINE 100 MCG TAB PO SCH (06:12)
[2017-05-31 08:02] VITALS: BP 120/72; PULSE 66; TEMP 36.7; O2SAT 94
[2017-05-31] MEDS: ASPIRIN 81 MG ECTAB PO SCH (08:32)
[2017-05-31] MEDS: RANITIDINE HCL 150 MG TAB PO SCH (08:33)
[2017-05-31] MEDS: METOPROLOL TARTRATE 25 MG TAB PO SCH (08:33)
[2017-05-31] MEDS: INSULIN ASPART 100 UNITS/ML 3 ML PEN SC SCH ×2 (08:34→11:00)
[2017-05-31 09:25] LABS: ALBUMIN 2.3 gm/dl (3.4-5.0); CALCIUM 8.5 mg/dl (8.5-10.1); CREATININE 1.55 mg/dl (0.60-1.40); POTASSIUM 3.9 mmol/L (3.5-5.1)
--- NOTE | 2017-05-31 09:37 | Nephrology Progress Note ---
Nephrology Progress Note Date of Service May 31, 2017. Chief Complaint ISAIAS Subjective Mr. Rae was seen & examined in his hospital room this morning. He was sitting up reading a newspaper. Mr. Rae voices no new medical concerns at this time. He is hoping to return home soon. Review of Systems Constitutional: No fever Cardiovascular: No chest pain Respiratory: No dyspnea at rest Abdomen: No pain, No nausea, No vomiting Genitourinary - Male: No urinary hesitancy Extremities: No leg edema A complete review of systems was performed. Pertinent positives are noted above. All other systems are negative. Vital Signs Last 8 Hrs Date Time Temp Pulse Resp B/P (MAP) Pulse Ox O2 Delivery O2 Flow Rate FiO2 05/31/17 08:02 36.7 66 20 120/72 (88) 94 Room Air Last Recorded Weight Weight (Kilograms): 76.200 Physical Exam General Appearance: no apparent distress Head: normocephalic, atraumatic Eyes: PERRL, EOMI Neck: no adenopathy Respiratory/Chest: lungs clear, no respiratory distress Cardiovascular: regular rate, rhythm, no murmur Abdomen/GI: normal bowel sounds, non tender, soft Extremities/Musculoskelatal: no calf tenderness, no pedal edema Neurologic/Psych: alert, oriented x 3, + pertinent finding (hard of hearing) Family History Pt could not provide any family history, Son was not aware of any known f/h of CKD or ESRD. Has h/o HTN in family. Social History Smokeless Tobacco Use: No Alcohol Use: none Drug Use: none Marital Status: Occupation: retired Laboratory Results Past 24 Hours 05/31/17 08:15 Test 05/30/17 11:40 05/30/17 16:25 05/30/17 20:09 05/31/17 07:44 Bedside Glucose 173 mg/dl (70-99) 146 mg/dl (70-99) 202 mg/dl (70-99) 107 mg/dl (70-99) Test 05/31/17 08:15 Anion Gap 9.0 mmol/L (3-11) Est Creatinine Clear Calc Drug Dose 30.8 ml/min Estimated GFR () 45.3 Estimated GFR (Non- 39.1 BUN/Creatinine Ratio 21.9 (10-20) Calcium Level 8.5 mg/dl (8.5-10.1) Total Bilirubin 1.2 mg/dl (0.2-1) Direct Bilirubin 0.3 mg/dl (0-0.2) Aspartate Amino Transf (AST/SGOT) 23 U/L (15-37) Alanine Aminotransferase (ALT/SGPT) 179 U/L (12-78) Alkaline Phosphatase 62 U/L (45-117) Total Protein 7.0 gm/dl (6.4-8.2) Albumin 2.3 gm/dl (3.4-5.0) Allergies Coded Allergies: Niacin (Verified Allergy, Mild, RASH, 05/24/17) Medications Current Inpatient Medications Medications (Trade) Dose Ordered Sig/Sahil Route Start Time Stop Time Status Last Admin Dose Admin Levothyroxine Sodium (Synthroid Tab) 100 mcg DAILYBB PO 05/25/17 06:00 06/24/17 06:59 05/31/17 06:12 100 MCG Ranitidine HCl (zANTac TAB) 150 mg BID PO 05/25/17 09:00 06/24/17 08:59 05/31/17 08:33 150 MG Aspirin (Ecotrin Tab) 81 mg QAM PO 05/26/17 09:00 06/25/17 08:59 05/31/17 08:32 81 MG Metoprolol Tartrate (Lopressor Tab) 12.5 mg BID PO 05/28/17 20:00 06/27/17 19:59 05/31/17 08:33 12.5 MG Insulin Aspart (novoLOG ASPART) SLIDING SCALE G... ACHS SC 05/28/17 12:45 06/27/17 12:44 05/30/17 13:36 1 UNITS Glucose (Glucose 40% Gel) 15-30 GRAMS 15 GRAMS... UD PRN PO 05/28/17 13:00 06/27/17 12:59 Glucose (Glucose Chew Tab) 4-8 Tablets 4 Tabl... UD PRN PO 05/28/17 13:00 06/27/17 12:59 Dextrose (Dextrose 50% 50ML Syringe) 25-50ML OF 50% DW IV FOR... UD PRN IV 05/28/17 13:00 06/27/17 12:59 Glucagon (Glucagon Inj) 1 mg UD PRN SQ 05/28/17 13:00 06/27/17 12:59 Impression (1) Acute renal failure (2) Transaminitis (3) Hypertension (4) Proteinuria (5) Thrombocytopenia (6) Elevated troponin (7) NSTEMI (non-ST elevated myocardial infarction) Mr. Rae suffered AIMI / RV infarction complicated by hypotension, ISAIAS and acute hepatic injury. Admission creatinine was 7.5 w/ BUN 125. He had significant electrolyte abnormalities including hyperkalemia and metabolic acidosis. CT of abdomen & pelvis without contrast was negative for obstruction. Urinalysis revealed low grade proteinuria and hematuria. Baseline creatinine has been 1.3 - 1.4 Echocardiogram this hospitalization revealed LVEF 30 - 35% w/ severe RV dysfunction and moderate MR / TR. Recommendations ACUTE KIDNEY INJURY: -- Resolved. Creatinine has dropped from 7.3 to 1.5. Patient is essentially back to baseline function. Volume status & electrolyte balance are acceptable -- No further Nephrology evaluation indicated at this time. If discharge is anticipated recommend follow up w/ PCP for general health monitoring ASCVD: -- Patient suffered AIMI / RV infarction -- Echocardiogram this hospitalization revealed LVEF 30 - 35% w/ severe RV dysfunction and moderate MR / TR -- Cardiology has started ASA and low dose beta mariln -- JOMAR inhibitor held due to recent ISAIAS HTN: -- Blood pressure is currently well controlled w/ low dose beta marlin. Continue to hold JOMAR inhibitor. OTHER: -- Patient participated in PT 05/28. He ambulated 240 ft w/ Lumense walker
[2017-05-31] MEDS ORDERED: LPR25 PO (09:39)
--- NOTE | 2017-05-31 09:52 | Discharge Instructions ---
Discharge Instructions Date of Service May 31, 2017. Admission Reason for Admission: Acute Renal Failure, Liver Failure Discharge Discharge Diagnosis / Problem: Myocardial infarction; acute kideny injury; liver failure; thrombocytopenia Discharge Goals Goal(s): Decrease discomfort, Improve function, Increase independence, Improve disease control, Learn about illness, Diagnostic testing, Therapeutic intervention, Prevent Disease Progression Activity Recommendations Activity Limitations: resume your previous activity . Instructions / Follow-Up Instructions / Follow-Up New Medications: Metoprolol 12.5 mg twice daily You have been giving a script for repeat labs. Please get labs drawn 1-2 days before scheduled PCP appointment. FOLLOW-UPS: Please follow-up with your PCP within 5-7 days Please follow-up with Cardiology within 1-2 weeks Please follow-up/keep all of your subspecialty appointments Home Care: * Take your medications exactly as directed. Don't skip doses. * Remember that recovery after a heart attack takes time. Plan to rest for at lease 4-8 weeks while you recover. Then return to normal activity when your doctor says it's okay. * Ask your doctor about joining a heart rehabilitation program. * Tell your doctor if you are feeling depressed. Feelings of sadness are common after a heart attack, but it is important that you speak to someone if you are feeling overwhelmed by these feelings. * If you are having chest pain, call 911 for an ambulance. Do NOT drive yourself to the hospital. * Ask your family members to learn CPR. * Learn to take your own blood pressure and pulse. Keep a record of your results. Ask your doctor when you should seek emergency medical attention. He or she will tell you which blood pressure reading is dangerous. Lifestyle Changes: * Maintain a healthy weight. Get help to lose any extra pounds. * Cut back on salt. * Limit canned, dried, packaged, and fast foods. * Don't add salt to your food. * Season foods with herbs instead of salt when you cook. * Break the smoking habit. Enroll in a stop-smoking program to improve your chances of success. * Limit fatty foods. * Ask your doctor about having your lipid levels checked regularly. * Build up your activity according to your doctor's recommendation. * Ask your doctor when it's okay to resume sexual activity. * Tell your doctor about any erectile dysfunction (ED) medication you are taking. Some ED medications are not safe if you take certain heart medications. * Try to manage stress. Follow Up: It is important for you to keep your follow up appointments with your medical provider. Current Hospital Diet Patient's current hospital diet: AHA Diet (Heart Healthy), Renal Diet, Diabetes Type 2 Diet Discharge Diet Recommended Diet: AHA Diet (Heart Healthy) Pending Studies Studies pending at discharge: no Laboratory Results Hemoglobin A1c Test 05/29/17 07:44 Range/Units Estimated Average Glucose 131 mg/dl Hemoglobin A1c 6.2 H 4.5-5.6 % Lipid Panel Test 05/25/17 05:24 Range/Units Triglycerides Level 146 0-150 mg/dl Cholesterol Level 144 0-200 mg/dl HDL Cholesterol 24 mg/dl Cholesterol/HDL Ratio 6.0 LDL Cholesterol, Calculated 91 mg/dl Medical Emergencies . Who to Call and When: Medical Emergencies: If at any time you feel your situation is an emergency, please call 911 immediately. Call 911 immediately or go to your nearest Emergency Room if you experience any of the following: Warning Signs and Symptoms of a Heart Attack * Chest pain that is not relieved by medication * Shortness of breath . Non-Emergent Contact Non-Emergency issues call your: Primary Care Provider, Storage Engineer Call Non-Emergent contact if: you have any medication questions . . "Provider Documentation" section prepared by Genia Elder. . AMI Core Measures Reason no ASA as I/P: Treatment provided - N/A Reason no ASA at D/C: Treatment provided - N/A Reason no statin as I/P: Contraindicated Reason no statin at D/C: Contraindicated VTE Core Measure Inpt VTE Proph given/why not?: SCD's, Contraindicated (thrombocytopenia )
--- NOTE | 2017-05-31 09:54 | Discharge Summary ---
Discharge Summary Date of Service May 31, 2017. 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 Abnormal liver enzymes. FINDINGS: Prominent basilar parenchymal markings combine with calcified pleural plaques over the lower aspects of the right and to a lesser extent left hemithorax and to a lesser extent diaphragmatic surfaces. Liver is uniform. In the absence of intravenous contrast enhancement internal architecture cannot be ascertained. Configuration of the spleen is unremarkable. Pancreas is uniform. Kidneys are considered negative for calcification or hydronephrosis. There is a slightly hyperdense 3.5 cm cyst projecting in a left lateral exophytic a position lower pole left kidney. The bowel pattern is nonobstructive. The appendix is normal. Small bowel pattern is negative for distention. There is no significant abdominal or pelvic adenopathy. Bladder is midline. There are no contained calcifications. There are several small scattered colonic diverticuli with no evidence for acute diverticulitis. There is a very small right inguinal hernia containing a short segment loop of bowel. This appears to be a nonobstructive finding. TECHNIQUE: Multiaxial CT images of the abdomen and pelvis were performed without contrast. A dose lowering technique was utilized adhering to the principles of ALARA. COMPARISON STUDY: None. IMPRESSION: 1. Pleural and diaphragmatic calcified plaques at both lung bases combined with basilar parenchymal prominence. The possibility of prior asbestos exposure is considered. 2. 3.5 cm mildly hyperdense cyst left kidney. 3. Scattered colonic diverticuli with no evidence for diverticulitis. 4. Nonobstructive bowel pattern with a normal appendix. 5. Moderate degenerative change of the osseous structures throughout 6. Small right inguinal hernia containing a short segment loop of bowel which is considered nonobstructive. The above report was generated using voice recognition software. It may contain grammatical, syntax or spelling errors. Electronically signed by: Lawrence Gamble M.D. 05/24/2017 6:14 PM Dictated Date/Time: 05/24/2017 6:08 PM The status of this report is Signed. Draft = Not yet reviewed or approved by Radiologist. Signed = Reviewed and approved by Radiologist. CHEST ONE VIEW PORTABLE CLINICAL HISTORY: Shortness of breath and cough. COMPARISON STUDY: Chest radiograph May 23, 2017. FINDINGS: Multiple calcified pleural plaques are noted, more numerous within left hemithorax. There is no pneumothorax or pleural effusion. Mild cardiomegaly is noted. There is no lobar consolidation. Mild reticulonodular interstitial thickening is noted within the mid to lower lungs. IMPRESSION: 1. Reticulonodular interstitial thickening which may reflect interstitial lung disease or mild pulmonary edema. 2. 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 Electronically signed by: Douglas Galvin M.D. 05/24/2017 6:10 PM Dictated Date/Time: 05/24/2017 5:59 PM The status of this report is Signed. Draft = Not yet reviewed or approved by Radiologist. Signed = Reviewed and approved by Radiologist. ULTRASOUND RIGHT UPPER QUADRANT ABDOMEN CLINICAL HISTORY: Acute hepatitis. COMPARISON STUDY: Abdominal CT dated 05/24/2017. TECHNIQUE: Real-time, grayscale, and color flow sonography of the right upper quadrant of the abdomen was performed. Images are reviewed in the transverse and longitudinal planes. FINDINGS: Liver: The liver is normal in size and demonstrates heterogeneously increased echotexture consistent with hepatic steatosis. There is no intrahepatic biliary ductal dilatation. The main portal vein is patent. Gallbladder: Biliary sludge is noted. The gallbladder is otherwise normal in appearance. No shadowing gallstones are identified. There is no gallbladder wall thickening or pericholecystic fluid. A sonographic Roldan's sign is reportedly absent. The common bile duct measures up to 0.3 cm in diameter. Pancreas: Visualized portions of the pancreatic head are normal in appearance. The majority of the pancreas was not well visualized. Right kidney: Survey images of the right kidney demonstrate normal size and echotexture. There is no hydronephrosis. Ascites: Trace perihepatic fluid is identified. IMPRESSION: 1. Findings are consistent with hepatic steatosis. 2. Trace perihepatic fluid is noted. 3. There is biliary sludge. No shadowing gallstones are identified and there is no sonographic evidence of acute cholecystitis. Electronically signed by: Anderson Reyes M.D. 05/25/2017 7:33 AM Dictated Date/Time: 05/25/2017 7:31 AM The status of this report is Signed. Draft = Not yet reviewed or approved by Radiologist. Signed = Reviewed and approved by Radiologist. CHEST ONE VIEW PORTABLE CLINICAL HISTORY: pleural effusions COMPARISON STUDY: 05/24/2017 FINDINGS: The cardiac and mediastinal contours remain stable. 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 There are bilateral reticulonodular opacities similar to the preceding study. There is no lobar consolidation. No significant pleural effusions are visualized on this AP projection IMPRESSION: 1. Stable calcified pleural plaques 2. Stable bilateral reticulonodular opacities Electronically signed by: Elgin Felipe M.D. 05/25/2017 7:48 AM Dictated Date/Time: 05/25/2017 7:47 AM The status of this report is Signed. Draft = Not yet reviewed or approved by Radiologist. Signed = Reviewed and approved by Radiologist. 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 These are stable. Unchanging bilateral reticular nodular changes. Trace pleural fluid left lateral gastric angle unchanged. IMPRESSION: No change from the prior study. No interval process. The above report was generated using voice recognition software. It may contain grammatical, syntax or spelling errors. Electronically signed by: Lawrence Gamble M.D. 05/26/2017 7:52 AM Dictated Date/Time: 05/26/2017 7:52 AM The status of this report is Signed. Draft = Not yet reviewed or approved by Radiologist. Signed = Reviewed and approved by Radiologist ECHOCARDIOGRAM: Interpretation Summary * Name: PAT LANCASTER Study Date: 05/25/2017 07:23 AM BP: 109/69 mmHg * [place] [facility] [place]\S\1 HR: 54 * : 1925 (M/d/yyyy) Gender: Male * Age: 89 yrs Ethnicity: [place] Weight: 160 lb * Ordering Physician: Reji Brown * Referring Physician: Self, Referred * Performed By: Sandra Mays RDCS * * Reason For Study: Congestive Heart Failure * -- Conclusions -- * 1. Normal LV size. Borderline concentric LVH. * 2. Moderate to severe LV dysfunction. LVEF 30-35%. Inferior wall, basal inferolateral and inferoseptal segments akinetic (see hinaseye for details). * 3. RV mildly dilated with severe RV dysfunction. * 4. Mild to moderate mitral regurgitation. * 5. Mild to moderate TR. Borderline PH (Est PASP 35-40 mmHg). Elevated CVP (Est RA 15 mmHg). * 6. No prior studies for comparison. Procedure Details * A complete two-dimensional transthoracic echocardiogram was performed (2D, M-mode, Doppler and color flow Doppler). * A contrast injection of Definity was performed to improve assessment of LV function. * Contrast was injected into an intravenous site in the right arm. * One vial of Definity ultrasound contrast was diluted in normal saline to a total volume of 10 ml. A total of '2' ml of solution was administered during imaging. * Lot # [id number] of Definity utilized for procedure. * Expiration date . * The attending nurse who injected the contrast agent was ZANE Sin. Left Ventricle * The left ventricle is grossly normal size. * There is borderline concentric left ventricular hypertrophy. * Ejection Fraction = 30-35%. * Inferior wall, basal inferolateral and inferoseptal segments akinetic. Right Ventricle * The right ventricle is mildly dilated. * The right ventricular systolic function is severely reduced. Atria * The left atrial size is normal. * The right atrium is mildly dilated. * There is no evidence of atrial septal defect, but resolution does not allow assessment for a patent foramen ovale. Mitral Valve * There is mild mitral annular calcification. * There is no mitral valve stenosis. * There is mild to moderate mitral regurgitation. Tricuspid Valve * The tricuspid valve anatomy is normal. * There is no tricuspid stenosis. * There is mild to moderate tricuspid regurgitation. Aortic Valve * The aortic valve opens well. * Aortic valve sclerosis mild, without significant aortic valvular stenosis. * The aortic valve is trileaflet. * No hemodynamically significant valvular aortic stenosis. * There is no significant aortic regurgitation. Pulmonic Valve * The pulmonary valve is inadequately visualized, but the Doppler data is adequate for interpretation. * There is no pulmonic valvular stenosis. * Trace pulmonic valvular regurgitation. Great Vessels * The aortic root and proximal ascending aorta are normal sized. Pericardium/Pleural * There is no pericardial effusion. Great Vessels * Dilated inferior vena cava with reduced collapsability with sniff indicates an elevated right atrial pressure of 15 mmHg * PASP 35-40 mmHg Consultations: Cardiology- Dr. Willett/Dr. Merrill Nephrology- Dr. Mcmillan/Dr. Espino Critical care GI Medication Reconciliation New Medications: Metoprolol Tartrate (Lopressor) 25 Mg Tab 12.5 MG PO BID for 30 Days, #30 TAB Continued Medications: Aspirin (Aspirin Ec) 81 Mg Tab 81 MG PO DAILY Cholecalciferol (Vitamin D3) 1,000 Unit Tab 1000 INTER.UNIT PO DAILY, TAB 3 Refills Fish Oil ([place]-3) 1 Ea Cap 1 CAP PO DAILY, CAP Levothyroxine Sodium (Synthroid) 100 Mcg Tab 100 MCG PO DAILY Multivitamin (Multivitamin) Tab 1 TAB PO DAILY, TAB Discontinued Medications: [Potassium] () 1 TAB PO DAILY Referrals At Discharge Follow up Referrals: [employer] Referral - Within 1-2 Weeks with Omar Willett MD Family Practice Referral - Within 1-2 Weeks with Leonardo Barker M.D. Discharge Exam Review of Systems: Constitutional: No fever, No chills, No sweats, No weakness, No fatigue Eyes: No worsening of vision ENT: No hearing loss Respiratory: No cough, No shortness of breath, No hemoptysis Cardiovascular: No chest pain, No edema, No palpitations Abdomen: No pain, No nausea, No vomiting, No diarrhea, No constipation Musculoskeletal: No joint pain, No muscle pain, No swelling, No calf pain Genitourinary - Male: No hematuria, No dysuria Neurologic: No weakness, No numbness/tingling Psychiatric: No depression symptoms, No anxiety Endocrine: No fatigue Hematologic / Lymphatic: No abnormal bleeding/bruising Integumentary: No rash, No itch, No new/changing skin lesions Physical Exam: General Appearance: no apparent distress Eyes: normal inspection, PERRL ENT: + pertinent finding (BIG LAGOON) Neck: supple Respiratory/Chest: no respiratory distress, no accessory muscle use, + crackles (mild crackles at bilateral lung bases ) Cardiovascular: regular rate, rhythm Abdomen / GI: normal bowel sounds, non tender, soft Extremities: no calf tenderness, no pedal edema Neurologic/Psychiatric: alert, normal mood/affect, oriented x 3 Skin: normal color, warm/dry, no rash Hospital Course 89 y/o M who until recently has been relatively healthy and independent. 10 days ago he developed a flu-like illness. He was generally weak but was not able to describe any specific symptoms. One day prior he visited his primary care clinic. He was sent home after labs and a CXR were obtained. The pt was then called back and told to attend the hospital due to highly abnormal labs. His lab results are in fact catastrophic. The pts troponin is 196 with only questionable inferior EKG changes. His creatinine is 7.2 and his ALT is > 3500. Labs obtained 11/27 were relatively normal aside from a creatinine of 1.4. The pt is remarkably asymptomatic and has no specific complaints. He denies chest or abdominal pain, denies SOB, cough, diarrhea, dysuria, oliguria or fevers. His CXR is suspicious for congestion without definitive pathology. A CT abdomen was not consistent with cirrhosis or renal outlet obstruction. Inferior/RV OR, acute systolic and RV heart failure: - Admitted to ICU for acute management- transferred to med/surg on 05/27 - Trended cardiac enzymes- peak trop 196--> 25 - Continue ASA 81 mg daily, Metoprolol 12.5 mg BID - Plavix held due to thrombocytopenia; statin held due to elevated LFTs; ACEi held due to ISAIAS -- Patient given script for CBC and PRP- instructed patient to get labs drawn 1-2 days before PCP f/u. If stable, PCP/cardiology can discuss starting above medications - ECHO- EF 30-35%, RV dysfunction, inferior/inferolateral/inferoseptal akinetic - Cardiology following, appreciate recommendations ISAIAS on CKD stage III- product safety expert 1.55 today- IMPROVING: - IVF- discontinued due to adequate PO intake - Hold nephrotoxic agents and renally dose medications as appropriate - Nephrology following, appreciate recommendations Hyperkalemia, due to renal failure- RESOLVED: Treated w/ Kayexalate and dextrose /insulin infusion on 05/26 Hyperglycemia- hgbA1c 6.2%: BSG ACHS and ISS Ischemic hepatitis/congestive hepatopathy- IMPROVING: - Liver US- unremarkable - Follow LFTs- trending down - GI consulted, appreciate recommendations Thrombocytopenia, likely from liver congestion- STABLE: Continue to follow Hypothyroidism- TSH 5.8: Synthroid 100 mcg daily GI prophylaxis: Zantac DVT prophylaxis: TEDs/SCDs, ambulation; chemical anticoagulation held due to thrombocytopenia Code Status: LEVEL I, FULL Dispo: Discharge to [id number] w/ [facility] Supervising Note Dr. Howell I performed a history and physical examination on the patient. I reviewed above note and agree with it. I discussed plan with APC and patient. During my face to face encounter with the patient, I answered all of the patient's questions. Total Time Spent: Greater than 30 minutes This includes examination of the patient, discharge planning, medication reconciliation, and communication with other providers. Discharge Instructions Please refer to the electronic Patient Visit Report (Discharge Instructions) for additional information. Follow-Up Please follow-up with your PCP within 5-7 days Please follow-up with Cardiology within 1-2 weeks Please follow-up/keep all of your subspecialty appointments Additional Copies To Leonardo Barker M.D.
[2017-05-31 09:59] VITALS: O2SAT 95
[2017-05-31] MEDS ORDERED: POLYETHYLENE (MIRALAX) 17 GM PACK ONE (10:25)
[2017-05-31 11:03] VITALS: BP 120/72; PULSE 66; TEMP 36.7; O2SAT 95
[2017-06-01] MEDS ORDERED: POLYETHYLENE (MIRALAX) 17 GM PACK PO SCH (08:00)
== END 2017-05-31 14:18 | disposition home health service (06) | DRG 280 ==
LOC: C.EDB 14:17 → C.MSICU 19:08 → ENRESERV 19:24 → C.2E 05-26 17:45 → CANRESERV 05-27 11:14 → ENRESERV 05-27 11:14 → C.MS4W 05-27 12:23
PROVIDERS: ADMIT Internal Medicine; ATTEND Internal Medicine Sports Medicine
DX: I21.4 Non-ST elevation (NSTEMI) myocardial infarction (principal); I50.21 Acute systolic (congestive) heart failure; K72.00 Acute and subacute hepatic failure without coma; R57.0 Cardiogenic shock; G93.40 Encephalopathy, unspecified; N17.9 Acute kidney failure, unspecified; E87.2 Acidosis; E87.5 Hyperkalemia; R73.9 Hyperglycemia, unspecified; K75.89 Other specified inflammatory liver diseases; K76.1 Chronic passive congestion of liver; D69.59 Other secondary thrombocytopenia; R31.9 Hematuria, unspecified; R00.1 Bradycardia, unspecified; N18.3 Chronic kidney disease, stage 3 (moderate); E03.9 Hypothyroidism, unspecified; E78.00 Pure hypercholesterolemia, unspecified; E78.5 Hyperlipidemia, unspecified; H91.90 Unspecified hearing loss, unspecified ear; M19.90 Unspecified osteoarthritis, unspecified site; G31.84 Mild cognitive impairment of uncertain or unknown etiology; Z77.090 Contact with and (suspected) exposure to asbestos; Z87.891 Personal history of nicotine dependence; Z79.82 Long term (current) use of aspirin; Z79.899 Other long term (current) drug therapy

== ENCOUNTER → 2017-06-05 | Outpatient (CLI) | payer BC ==
[~2017-06-05] MED LIST changes: +LPR25 PO; -POTASSIUM PO
[2017-06-05 15:24] LABS: HEMATOCRIT 37.8 % (42-52); HEMOGLOBIN 12.8 g/dL (14.0-18.0); MEAN CELL VOLUME 100.5 fL (80-100); MEAN CORPUSCULAR HGB CONC 33.9 g/dl (32-36); MEAN PLATELET VOLUME 10.5 fL (7.4-10.4); PLATELET COUNT 167 K/uL (130-400); RED CELL DISTRIBUTION WIDTH CV 13.2 % (11.5-14.5); RED CELL DISTRIBUTION WIDTH SD 47.8 fL (36.4-46.3); WHITE BLOOD COUNT 6.93 K/uL (4.8-10.8)
[2017-06-05 15:53] LABS: BLOOD UREA NITROGEN 29 mg/dl (7-18); CALCIUM 9.7 mg/dl (8.5-10.1); CARBON DIOXIDE 29 mmol/L (21-32); GLUCOSE 110 mg/dl (70-99); POTASSIUM 4.6 mmol/L (3.5-5.1); SODIUM 137 mmol/L (136-145)
== END | disposition home or self-care (01) ==
LOC: C.LAB 13:56
PROVIDERS: ATTEND Physician Assistant
DX: D69.6 Thrombocytopenia, unspecified (principal); N17.9 Acute kidney failure, unspecified

== ENCOUNTER → 2017-06-11 | Outpatient (CLI) | payer BC ==
[2017-06-11 12:36] LABS: BASO % 0.7 %; BASO ABS # 0.04 K/uL (0-0.2); EOS % 2.3 %; EOS ABS # 0.13 K/uL (0-0.5); HEMATOCRIT 37.8 % (42-52); HEMOGLOBIN 12.6 g/dL (14.0-18.0); IG# 0.01 K/uL (0.00-0.02); LYMPH % 31.8 %; LYMPH ABS # 1.82 K/uL (1.2-3.4); MEAN CELL VOLUME 100.8 fL (80-100); MEAN CORPUSCULAR HEMOGLOBIN 33.6 pg (25-34); MEAN CORPUSCULAR HGB CONC 33.3 g/dl (32-36); MONO % 14.7 %; MONO ABS # 0.84 K/uL (0.11-0.59); NEUT % 50.3 %; NEUT ABS # 2.89 K/uL (1.4-6.5); PLATELET COUNT 180 K/uL (130-400); RED CELL DISTRIBUTION WIDTH CV 13.1 % (11.5-14.5); RED CELL DISTRIBUTION WIDTH SD 47.9 fL (36.4-46.3); WHITE BLOOD COUNT 5.73 K/uL (4.8-10.8)
[2017-06-11 12:47] LABS: BLOOD UREA NITROGEN 29 mg/dl (7-18); CALCIUM 9.2 mg/dl (8.5-10.1); CARBON DIOXIDE 29 mmol/L (21-32); CREATININE 1.37 mg/dl (0.60-1.40); GLUCOSE 87 mg/dl (70-99); POTASSIUM 4.3 mmol/L (3.5-5.1); SODIUM 139 mmol/L (136-145)
--- NOTE | 2017-06-14 14:09 | CODING QUERY NO DIAGNOSIS ---
Valid Physician Order Needed 11/11/27 A valid physician order must be submitted in order to properly bill for the service(s) provided, including date of service(s), valid diagnosis, and physician signature. If these tests are done on a recurring basis the original physician order must be submitted in order to code and bill for the service(s) provided. Please fax us the original, signed physician order so that we may expedite billing to [phone] DOS 06/11/2017 * PARTIAL RENAL PROFILE * CBC W/AUTO DIFF Thank you Katelyn [facility] Information Management
== END | disposition home or self-care (01) ==
LOC: C.LABSPEC 12:04
PROVIDERS: ATTEND Internal Medicine
DX: Z01.89 Encounter for other specified special examinations (principal)

== ENCOUNTER → 2017-07-25 | Outpatient (CLI) | payer BC ==
[2017-07-25 16:54] LABS: BASO % 0.5 %; BASO ABS # 0.03 K/uL (0-0.2); EOS % 1.4 %; EOS ABS # 0.09 K/uL (0-0.5); HEMATOCRIT 43.6 % (42-52); HEMOGLOBIN 15.1 g/dL (14.0-18.0); IG# 0.01 K/uL (0.00-0.02); LYMPH % 28.5 %; LYMPH ABS # 1.85 K/uL (1.2-3.4); MEAN CELL VOLUME 98.9 fL (80-100); MEAN CORPUSCULAR HEMOGLOBIN 34.2 pg (25-34); MEAN CORPUSCULAR HGB CONC 34.6 g/dl (32-36); MEAN PLATELET VOLUME 9.9 fL (7.4-10.4); MONO % 9.2 %; NEUT % 60.2 %; NEUT ABS # 3.91 K/uL (1.4-6.5); PLATELET COUNT 150 K/uL (130-400); RED CELL DISTRIBUTION WIDTH CV 13.5 % (11.5-14.5); RED CELL DISTRIBUTION WIDTH SD 48.6 fL (36.4-46.3); WHITE BLOOD COUNT 6.49 K/uL (4.8-10.8)
[2017-07-25 17:09] LABS: ALBUMIN 3.6 gm/dl (3.4-5.0); ALKALINE PHOSPHATASE 84 U/L (45-117); ALT/SGPT 23 U/L (12-78); AST/SGOT 18 U/L (15-37); BLOOD UREA NITROGEN 29 mg/dl (7-18); CALCIUM 9.7 mg/dl (8.5-10.1); CARBON DIOXIDE 30 mmol/L (21-32); CHOLESTEROL 173 mg/dl (0-200); CREATININE 1.41 mg/dl (0.60-1.40); GLUCOSE 131 mg/dl (70-99); LDL CHOLESTEROL CALCULATED 89 mg/dl; POTASSIUM 4.4 mmol/L (3.5-5.1); SODIUM 139 mmol/L (136-145); TOTAL PROTEIN 9.1 gm/dl (6.4-8.2)
== END | disposition home or self-care (01) ==
LOC: C.LABBC 13:09
PROVIDERS: ATTEND Internal Medicine
DX: E78.5 Hyperlipidemia, unspecified (principal); N18.3 Chronic kidney disease, stage 3 (moderate); K75.9 Inflammatory liver disease, unspecified; I21.9 Acute myocardial infarction, unspecified; J84.9 Interstitial pulmonary disease, unspecified; I25.10 Atherosclerotic heart disease of native coronary artery without angina pectoris; E03.9 Hypothyroidism, unspecified; I12.9 Hypertensive chronic kidney disease with stage 1 through stage 4 chronic kidney disease, or unspecified chronic kidney disease

== ENCOUNTER → 2017-09-05 | Outpatient (CLI) | payer BC ==
[2017-09-05 16:55] LABS: BASO % 0.5 %; BASO ABS # 0.03 K/uL (0-0.2); EOS ABS # 0.12 K/uL (0-0.5); HEMATOCRIT 42.6 % (42-52); HEMOGLOBIN 14.7 g/dL (14.0-18.0); IG# 0.01 K/uL (0.00-0.02); LYMPH % 35.5 %; LYMPH ABS # 2.11 K/uL (1.2-3.4); MEAN CELL VOLUME 99.3 fL (80-100); MEAN CORPUSCULAR HEMOGLOBIN 34.3 pg (25-34); MEAN CORPUSCULAR HGB CONC 34.5 g/dl (32-36); MEAN PLATELET VOLUME 9.3 fL (7.4-10.4); MONO % 9.9 %; MONO ABS # 0.59 K/uL (0.11-0.59); NEUT % 51.9 %; NEUT ABS # 3.08 K/uL (1.4-6.5); PLATELET COUNT 141 K/uL (130-400); RED CELL DISTRIBUTION WIDTH CV 13.9 % (11.5-14.5); WHITE BLOOD COUNT 5.94 K/uL (4.8-10.8)
[2017-09-05 18:46] LABS: ALBUMIN 3.6 gm/dl (3.4-5.0); BLOOD UREA NITROGEN 22 mg/dl (7-18); CALCIUM 10.2 mg/dl (8.5-10.1); CARBON DIOXIDE 31 mmol/L (21-32); CREATININE 1.32 mg/dl (0.60-1.40); GLUCOSE 104 mg/dl (70-99); POTASSIUM 4.5 mmol/L (3.5-5.1); SODIUM 139 mmol/L (136-145)
[2017-09-05 19:00] LABS: ALKALINE PHOSPHATASE 84 U/L (45-117); ALT/SGPT 25 U/L (12-78); AST/SGOT 22 U/L (15-37); TOTAL PROTEIN 8.8 gm/dl (6.4-8.2)
== END | disposition home or self-care (01) ==
LOC: C.LABBC 12:15
PROVIDERS: ATTEND Internal Medicine
DX: N18.3 Chronic kidney disease, stage 3 (moderate) (principal); I12.9 Hypertensive chronic kidney disease with stage 1 through stage 4 chronic kidney disease, or unspecified chronic kidney disease; I21.9 Acute myocardial infarction, unspecified; I25.10 Atherosclerotic heart disease of native coronary artery without angina pectoris; J84.9 Interstitial pulmonary disease, unspecified; I25.5 Ischemic cardiomyopathy